=== PATIENT | female | born 1960 | race Caucasian/White ===

== ENCOUNTER → 2016-07-18 | Outpatient (CLI) | payer MEDICARE, OTHER ==
[~2016-07-18] MED LIST: CYMB60CA3 PO; IBUP100SUS PO; LYRI150C PO; PROAAER INH; SIMV20TA2 PO; TOPA100T PO; VICO5TAB16 PO; oxybutynin OR
[2016-07-18 10:20] LABS: ALBUMIN 3.7 GM/DL (3.2-5.2); ALBUMIN/GLOBULIN RATIO 1.37 (1.00-1.93); ALKALINE PHOSPHATASE 110 U/L (45-117); ALT/SGPT 30 U/L (12-78); ANION GAP 9 MEQ/L (8-16); AST/SGOT 16 U/L (15-37); BILIRUBIN,TOTAL 0.3 MG/DL (0.2-1.0); BLOOD UREA NITROGEN 18 MG/DL (7-18); CARBON DIOXIDE LEVEL 27 MEQ/L (21-32); CHLORIDE LEVEL 109 MEQ/L (98-107); CHOLESTEROL LEVEL 233 MG/DL (<200); CREATININE FOR GFR 0.64 MG/DL (0.55-1.02); GLOMERULAR FILTRATION RATE > 60.0 (>51); GLUCOSE, FASTING 86 MG/DL (70-105); MAGNESIUM LEVEL 2.1 MG/DL (1.8-2.4); POTASSIUM SERUM 4.4 MEQ/L (3.5-5.1); SODIUM LEVEL 145 MEQ/L (136-145); TOTAL PROTEIN 6.4 GM/DL (6.4-8.2); TRIGLYCERIDES LEVEL 150 MG/DL (<150)
== END ==
LOC: M WUC 08:29
PROVIDERS: ATTEND Physician Assistant
DX: Z98.84 Bariatric surgery status (principal); E66.8 Other obesity; Z13.220 Encounter for screening for lipoid disorders; E07.9 Disorder of thyroid, unspecified; E55.9 Vitamin D deficiency, unspecified; Z79.899 Other long term (current) drug therapy

== ENCOUNTER 2016-10-16 07:01 | Emergency (ER) | payer MEDICARE, OTHER ==
[~2016-10-16] VITALS: Ht 162.6 cm; Wt 118.4 kg
[2016-10-16] MEDS ORDERED: NS 1,000 ML IV SCH (07:14)
[2016-10-16] MEDS ORDERED: PANTOPRAZOLE 40MG INJ (PROTONIX) (C9113) IV ONE (07:15)
[2016-10-16] MEDS ORDERED: ASPIRIN 81 MG CHEW TABLET PO ONE (07:15)
[2016-10-16] MEDS ORDERED: SUCRALFATE 1 GM TAB PO ONE (07:15)
[2016-10-16] MEDS ORDERED: BUSP30TA (07:21)
[2016-10-16] MEDS ORDERED: OXYB10TA (07:21)
[2016-10-16] MEDS ORDERED: DULO1CAP3 (07:21)
[2016-10-16] MEDS ORDERED: LYRI75CA (07:21)
[2016-10-16] MEDS ORDERED: TOPI1TAB31 (07:21)
[2016-10-16] MEDS ORDERED: BUSP15TA47 (07:21)
[2016-10-16] MEDS ORDERED: BUPR300T34 (07:21)
[2016-10-16 07:51] LABS: BASO % 0.6 % (0.0-1.0); EOS # 0.1 K/mm3 (0.0-0.50); EOS % 1.6 % (0.0-3.0); LARGE UNSTAINED CELL # 0.1 K/mm3 (0.0-0.4); LYMPH # 2.4 K/mm3 (1.5-4.5); LYMPH % 40.7 % (24.0-44.0); MEAN CORPUSCULAR HEMOGLOBIN 29.2 pg (27.0-33.0); MEAN CORPUSCULAR HGB CONC 33.5 g/dl (32.0-36.5); MONO # 0.5 K/mm3 (0.0-0.8); MONO % 7.7 % (0.0-5.0); NEUTROPHILS # 2.8 K/mm3 (1.8-7.7); NEUTROPHILS % 47.5 % (36.0-66.0); PLATELET COUNT, AUTOMATED 194 k/mm3 (150-450); WHITE BLOOD COUNT 5.8 K/mm3 (4.0-10.0)
[2016-10-16 08:17] LABS: ALBUMIN 3.5 GM/DL (3.2-5.2); ALBUMIN/GLOBULIN RATIO 1.06 (1.00-1.93); ALKALINE PHOSPHATASE 96 U/L (45-117); ALT/SGPT 30 U/L (12-78); ANION GAP 6 MEQ/L (8-16); AST/SGOT 20 U/L (15-37); BILIRUBIN,DIRECT < 0.1 MG/DL (0.0-0.2); BILIRUBIN,TOTAL 0.4 MG/DL (0.2-1.0); BLOOD UREA NITROGEN 17 MG/DL (7-18); CALCIUM LEVEL 8.8 MG/DL (8.5-10.1); CARBON DIOXIDE LEVEL 25 MEQ/L (21-32); CHLORIDE LEVEL 109 MEQ/L (98-107); CREATININE FOR GFR 0.58 MG/DL (0.55-1.02); GLOMERULAR FILTRATION RATE > 60.0 (>51); GLUCOSE, FASTING 92 MG/DL (70-105); POTASSIUM SERUM 3.9 MEQ/L (3.5-5.1); SODIUM LEVEL 140 MEQ/L (136-145); TOTAL PROTEIN 6.8 GM/DL (6.4-8.2)
[2016-10-16] MEDS ORDERED: GI COCKTAIL 50ML BTL(HYOSCYAMINE/MAALOX/LIDOCAINE VISCOUS)(1:3:1) PO ONE (08:30)
--- NOTE | 2016-10-16 08:38 | REP ---
Clinical: Abdominal pain and vomiting. Technique: Upright view of the chest with supine and upright views of the abdomen and pelvis. Findings: Upright view of the chest demonstrates chronic appearing changes without free air below the diaphragm to suspect pneumoperitoneum. Supine and upright views of the abdomen and pelvis demonstrate mildly prominent loops of small bowel with suspected subtle mural thickening suggesting enteritis. No evidence for obstruction or perforation. Evidence to suggest prior gastric bypass surgery. No organomegaly. Skeletal structures demonstrate age-related changes. Impression: Findings suggest enteritis. No evidence for bowel obstruction or perforation. Signed by Donovan Galaviz MD 10/16/2016 08:29 A
[2016-10-16] MEDS ORDERED: ISOVUE-370 76% 100ML VIAL (Q9967) As Ordered ONE (09:08)
--- NOTE | 2016-10-16 10:03 | REP ---
Clinical: Acute abdominal pain. Technique: Axial contrast enhanced images from the lung bases to the pubic symphysis using 100 ml Isovue 370 intravenous contrast material with coronal and sagittal re-formations. Findings: Lung bases are clear. Visualized heart and pericardium are normal. Liver, spleen, pancreas, gallbladder, bilateral adrenal glands and kidneys are essentially normal. A small focus of cortical scarring along the posterior aspect of the left kidney appears chronic. There is evidence for prior gastric bypass surgery. The enteric system is without obstruction or acute inflammatory process. Pelvis demonstrates normal bladder and evidence of prior hysterectomy. No ascites. No free air. No adenopathy. No mass lesion. Vasculature is normal. Musculoskeletal structures are intact. Impression: No acute intra-abdominal or pelvic pathology appreciated. Signed by Donovan Galaviz MD 10/16/2016 09:55 A
--- NOTE | 2016-10-16 10:05 | REP ---
Clinical: Acute chest pain. Technique: Axial contrast enhanced images from the thoracic inlet to the upper abdomen using 100 ml Isovue 370 intravenous contrast material with coronal and sagittal re-formations. Findings: Satisfactory enhancement of the pulmonary vasculature is achieved and no filling defects are identified to suggest pulmonary embolus. Thoracic aorta is normal caliber without aneurysm or dissection. Heart appears upper limits of normal in size. No pericardial effusion. Bilateral lung amezcua are well aerated and clear without acute pulmonary parenchymal consolidation or atelectasis. No nodule or mass lesion. No pleural effusion/reaction. No pneumothorax. No adenopathy. Impression: No evidence for pulmonary embolus. No acute pleuroparenchymal or mediastinal process. Signed by Donovan Galaviz MD 10/16/2016 09:57 A
[2016-10-16] MEDS ORDERED: SUCRALFATE SUSP 1GM/10ML UD PO ONE (11:45)
[2016-10-16] MEDS ORDERED: PEPC1TAB4 PO (12:25)
[2016-10-16] MEDS ORDERED: SUCR1SS PO (12:26)
[2016-10-16 12:35] VITALS: BP 106/57
--- NOTE | 2016-10-16 14:43 | ECGEPIP ---
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
== END 2016-10-16 12:47 | disposition home or self-care (01) ==
LOC: M ED 07:56
DX: K52.9 Noninfective gastroenteritis and colitis, unspecified (principal); Z98.84 Bariatric surgery status; J30.2 Other seasonal allergic rhinitis; Z90.79 Acquired absence of other genital organ(s); Z90.89 Acquired absence of other organs; Z87.891 Personal history of nicotine dependence; Z82.49 Family history of ischemic heart disease and other diseases of the circulatory system; Z88.0 Allergy status to penicillin; Z79.899 Other long term (current) drug therapy
CPT/HCPCS: 36415; 71275; 74022; 74177; 80048; 80076; 82550; 82553; 83690; 83880; 84443; 84484; 85025; 93005; 93041; 94760; 96374; 99285; C9113; Q9967

== ENCOUNTER → 2016-12-12 | Outpatient (CLI) | payer MEDICARE, OTHER ==
[~2016-12-12] MED LIST changes: +ALBU17IN; +BUPR300T34; +BUSP15TA47; +BUSP30TA; +DULO1CAP3; +HYDR-3363; +LYRI75CA; +OXYB10TA; +PEPC1TAB4 PO; +SUCR1SS PO; +TOPI100T9; +VITA1CAP40
[2016-12-12 13:51] LABS: ANION GAP 6 MEQ/L (8-16); BLOOD UREA NITROGEN 17 MG/DL (7-18); CALCIUM LEVEL 9.2 MG/DL (8.5-10.1); CARBON DIOXIDE LEVEL 26 MEQ/L (21-32); CHLORIDE LEVEL 109 MEQ/L (98-107); CREATININE FOR GFR 0.51 MG/DL (0.55-1.02); GLOMERULAR FILTRATION RATE > 60.0 (>51); GLUCOSE, FASTING 89 MG/DL (70-105); POTASSIUM SERUM 4.8 MEQ/L (3.5-5.1); SODIUM LEVEL 141 MEQ/L (136-145)
== END ==
LOC: M WUC 10:43
DX: L29.9 Pruritus, unspecified (principal); M79.7 Fibromyalgia; I11.9 Hypertensive heart disease without heart failure

== ENCOUNTER → 2016-12-12 | Outpatient (CLI) | payer MEDICARE, OTHER | LOC: M WUC 10:48 | PROVIDERS: ATTEND Physician Assistant | DX: E55.9 Vitamin D deficiency, unspecified (principal); L29.9 Pruritus, unspecified; M79.7 Fibromyalgia; I11.9 Hypertensive heart disease without heart failure ==

== ENCOUNTER 2017-02-27 12:57 | Emergency (ER) | payer MEDICARE, OTHER ==
[~2017-02-27] VITALS: Ht 162.6 cm; Wt 120.9 kg
[~2017-02-27 12:57] MED LIST changes: -ALBU17IN; -HYDR-3363; -VITA1CAP40
[2017-02-27] MEDS ORDERED: ALBU17IN (13:25)
[2017-02-27] MEDS ORDERED: HYDR-3363 (13:25)
[2017-02-27] MEDS ORDERED: VITA1CAP40 (13:25)
[2017-02-27] MEDS ORDERED: ONDANSETRON 4 MG ORAL DISINTEGRATING TAB (S0181) PO ONE (16:15)
[2017-02-27] MEDS ORDERED: NORCO, ANEXSIA 5/325MG TABLET (HYDROcodone/ACETAMINOPHEN) PO ONE (16:15)
--- NOTE | 2017-02-27 16:41 | REP ---
CT Head without contrast HISTORY: Trauma COMPARISON: None There is no intraparenchymal hemorrhage, acute infarct, mass or midline shift. The ventricular system is normal in appearance. There is no extra cerebral collection. There is no fracture. The visualized sinuses are clear. IMPRESSION: There is no intracranial lesion. Signed by Titus Mendez MD 02/27/2017 04:32 P
--- NOTE | 2017-02-27 17:14 | REP ---
CT ORBITS WITHOUT CONTRAST: HISTORY: Trauma. The globes, optic nerves and rectus muscles are normal in appearance. There is no orbital lesion. The visualized sinuses are clear. There is no fracture. IMPRESSION: There is no orbital lesion. Signed by Titus Mendez MD 02/28/2017 08:29 A
[2017-02-27 17:17] VITALS: BP 137/96
== END 2017-02-27 17:25 | disposition home or self-care (01) ==
LOC: M ED 12:57
DX: S00.81XA Abrasion of other part of head, initial encounter (principal); S80.212A Abrasion, left knee, initial encounter; S40.021A Contusion of right upper arm, initial encounter; S80.12XA Contusion of left lower leg, initial encounter; W19.XXXA Unspecified fall, initial encounter; Y92.410 Unspecified street and highway as the place of occurrence of the external cause; Y93.89 Activity, other specified; Y99.8 Other external cause status; J45.909 Unspecified asthma, uncomplicated; F43.10 Post-traumatic stress disorder, unspecified

== ENCOUNTER → 2017-03-01 | Outpatient (CLI) | payer MEDICARE, OTHER ==
[~2017-03-01] MED LIST changes: +ALBU17IN; +HYDR-3363; +VITA1CAP40
--- NOTE | 2017-03-20 01:02 | ECWPNPC ---
PATIENT NAME: LOY QUINN : 1960 GENDER: FEMALE VISIT DATE: 03/01/2017 DISCHARGE DATE: 03/01/17 1128 VISIT LOCKED DATE TIME: PHYSICIAN: CLEOPATRA COPELAND PHYSICIAN PAGER NO: [phone] RESOURCE: CLEOPATRA COPELAND REASON FOR APPOINTMENT 1. FIBRO AND CHRONIC PAIN HISTORY OF PRESENT ILLNESS HISTORY OF PRESENT ILLNESS: 56 Y/O FEMALE REFERRED BY DAWN PATEL FOR CHRONIC LOW BACK PAIN AND LEFT LEG PAIN.ALSO SUFFERS FROM FIBROMYALGIA.PAIN BEGAN IN 2003 AFTER SHE HAD LEFT KNEE CAP REMOVED.WAS IN A BRACE OVER LEFT LEG FOR SEVERAL MONTHS.SHE HAS HAD FIBROMYALGIA FOR YEARS AND THIS PAIN SEEMS TO BE GETTING WORSE.RATING PAIN VAS 8/10.PAIN IS DESCRIBED CONSANT AND ACHING.HISTORY OF GASTRIC BYPASS IN 2013 WITH A WEIGHT LOSS OF 210 POUNDS SINCE SURGERY.DENIES RECENT FEVER OR ILLNESS.DENIES BOWEL OR BLADDER INCONTINENCE.CURRENTLY USING LYRICA AND CYMBALTA FOR CHRONIC PAIN. PAIN THE PATIENT DESCRIBES THE PAIN... FALL RISK SCREENING: SCREENING :NO FALLS IN THE PAST YEAR :NO FALLS IN THE PAST YEAR SCREENING :NO FALLS IN THE PAST YEAR :NO FALLS IN THE PAST YEAR NEW PATIENT CONSULT: WHEN DID YOUR PAIN FIRST START? . BRIEFLY DESCRIBE HOW YOUR PAIN STARTED? . HOW DOES YOUR PAIN CHANGE WITH TIME? . DOES YOUR PAIN AWAKEN YOU FROM SLEEP? . HOW MANY HOURS OF SLEEP DO YOU NORMALLY GET? . ANY DIAGNOSTIC TESTING? . FACILITY WHERE TESTS WERE DONE? ____. PAIN TREATMENT TREATMENT YES CANCER HAVE YOU EVER HAD ANY TYPE OF CANCER?NO NO. PAIN SCREENING: PATIENT HAS A COMPLAINT OF ACUTE OR CHRONIC PAIN :YES GARCES INVENTORY: QUESTIONNAIRE ASSESSEDYES SCORE VALUE CALCULATED YES SCORE:30 DENIES SUICIDAL IDEATIONS. CURRENT MEDICATIONS TAKING HYDROXYZINE HCL 25 MG TABLET 1 -2 TABLETS ORALLY EVERY 8 HRS NEEDED FOR ITCHING, MDD=6 TAKING CALCIUM CITRATE 1040 MG TABLET 1 TABLET ORALLY TWICE A DAY TAKING POTASSIUM 99 MG TABLET 1 TABLET ORALLY ONCE A DAY TAKING VITAMIN C 500 MG TABLET CHEWABLE 1 TABLET ORALLY ONCE A DAY TAKING BIOTIN 5 MG CAPSULE 2 TABLET ORALLY ONCE A DAY TAKING VITAMIN B12 1000 TABLET 1 TABLET ORALLY ONCE A DAY TAKING MULTIVITAL TABLET 2 TAB(S) ORALLY ONCE A DAY TAKING DRISDOL 67177 UNIT CAPSULE 1 CAPSULE ORALLY ONCE A WEEK TAKING CYMBALTA 60 MG CAPSULE DELAYED RELEASE PARTICLES 1 CAPSULE ORALLY ONCE A DAY TAKING VENTOLIN HFA 108 (90 BASE) MCG/ACT AEROSOL SOLUTION 2 PUFFS NEEDED INHALATION EVERY 4-6 HRS PRN SOB TAKING LYRICA 75 MG CAPSULE 1 CAPSULE ORALLY TWICE A DAY/MDD #2 TAKING TOPAMAX 100 MG TABLET 1 TABLET ORALLY ONCE A DAY TAKING OXYBUTYNIN CHLORIDE ER 10 MG TABLET EXTENDED RELEASE 24 HOUR 1 TABLET ORALLY ONCE A DAY TAKING MAGNESIUM OXIDE 400 MG TABLET 1 TABLET NEEDED ORALLY ONCE A DAY TAKING PROBIOTIC - CAPSULE 1 TAB ORALLY DAILY TAKING FERROUS GLUCONATE 324 (38 FE) MG TABLET 2 TABS ORALLY DAILY MEDICATION LIST REVIEWED AND RECONCILED WITH THE PATIENT PAST MEDICAL HISTORY DEPRESSION FIBROMYALGIA NERVE PAIN MIGRAINES HYPERLIPIDEMIA ASTHMA VINITA MORBID OBESITY ARTHRITIS KNEES, BACK COLLAGENOUS COLITIS ON BX 10/08 FAINTING SPELLS SINCE HEAD INJURY ON 02/27/17 CPAP BYPASS SURGERY 11/03/2013 ENLARGED THYROID ALLERGIES PENICILLIN (FOR ALLERGIES USE ONLY): HIVES: ALLERGY SURGICAL HISTORY LT KNEE CAP REMOVED 2002 RT OVARY REMOVED 1984 APPENDECTOMY 1984 1984 TONSEILLECTOMY AND ADNOIDS 1971 RHINOPLASTY 1989 D&C 09/2011, 12/2012 GASTRIC BYPASS 11/08 COLONOSCOPY--COLLAGENOUS COLITIS 10/08 HYSTERECTOMY 2012 FAMILY HISTORY FATHER: , LUNG CANCER, BLADDER CANCER, HTN, HYPERLIPIDEMIA, DIAGNOSED WITH CANCER MOTHER: , PULMONARY FIBROSIS SIBLINGS: ALIVE, COLON CARCINOMA SON(S): ALIVE, ASTHMA PATERNAL GRAND FATHER: , BLADDER CANCER, RENAL FAILURE PATERNAL GRAND MOTHER: , DIABETES, OLD AGE MATERNAL GRAND FATHER: , HEART ATTACK, STROKE MATERNAL GRAND MOTHER: , PNEUMONIA 1 BROTHER(S) - HEALTHY. 1 SON(S) - HEALTHY. SOCIAL HISTORY GENERAL: TOBACCO USE ARE YOU A:FORMER SMOKER HOW LONG HAS IT BEEN SINCE YOU LAST SMOKED?> 10 YEARS ALCOHOL SCREENING POINTS0 INTERPRETATIONNEGATIVE RECREATIONAL DRUG USE DRUG USE?NO EPISCOPALIAN [id number] MORAVIAN LANGUAGE LANGUAGES SPOKEN:PERUVIAN LEARNING BARRIERS / SPECIAL NEEDS BARRIERS TO LEARNING?NO HEARING IMPAIRED?NO VISION IMPAIRED?YES :CORRECTIVE LENSES COGNITIVELY IMPAIRED?NO READINESS TO LEARN?YES LEARNING PREFERENCES?NO LEARNING CAPABILITIES PRESENT?YES EMOTIONAL BARRIERS?NO SPECIAL DEVICES?YES :CANE FERRY CAPTAIN NEEDED?NO PAIN CLINIC PFS, CLERGY, PUBLIC HEALTH REFERRALS PFS REFERRAL NEEDED?NO CLERGY REFERRAL NEEDED?NO PUBLIC HEALTH REFERRAL NEEDED?NO WAS THE PROVIDER NOTIFIED OF ANY PERTINENT INFO?NO HAS THE PATIENT BEEN EDUCATED REGARDING HIS/HER PLAN OF CARE?YES HAS THE PATIENT BEEN EDUCATED REGARDING PAIN, THE RISK FOR PAIN, THE IMPORTANCE OF EFFECTIVE PAIN MANAGEMENT, AND THE PAIN ASSESSMENT PROCESS?YES PATIENT: ____. ADVANCE DIRECTIVES HEALTH CARE PROXY?NO WOULD YOU LIKE MORE INFORMATION?YES DISCUSSED WITH PATIENT AND GAVE INFORMATION TO HER DO YOU HAVE A DNR?NO WOULD YOU LIKE MORE INFORMATION?NO LIVING WILL?NO WOULD YOU LIKE MORE INFORMATION?NO POWER OF OUTSIDE PRODUCTION INSPECTOR?NO WOULD YOU LIKE MORE INFORMATION?NO HOSPITALIZATION/MAJOR DIAGNOSTIC PROCEDURE ABOVE REVIEW OF SYSTEMS REVIEWED BY: PROVIDER: , CLEOPATRA PATEL . CONSTITUTIONAL: ANY CHANGE IN YOUR MEDICAL CONDITION? NO . CHILLS NO . FEVER NO . INFECTION: DO YOU HAVE NEW INFECTIONS? NO . DO YOU HAVE HISTORY OF MRSA? NO . MUSCULOSKELETAL: ANY NEW PATTERNS OF PAIN OR NUMBNESS? NO . SYTEMIC LUPUS NO . GASTROENTEROLOGY: ANY NEW CHANGE IN BOWEL CONTROL? NO . BARRETTS ESOPHAGUS NO . CIRRHOSIS NO . HEPATITIS NO . LIVER FAILURE NO . ACID REFLUX NO . UNEXPLAINED WEIGHT LOSS NO . GENITOURINARY: ANY NEW CHANGE IN BLADDER CONTROL? NO . IS THERE A CHANCE YOU COULD BE ? NO . HEMATOLOGY/LYMPH: DO YOU TAKE ANY BLOOD THINNERS? (FOR EXAMPLE- COUMADIN, PLAVIX, AGGRENOX, PLATEL, PRADAXA, OR XARELTO) NO . WHEN WAS YOUR LAST DOSE? DATE: TIME: . LOW PLATELET COUNT NO . SICKLE CELL DISEASE NO . VON WILLIEBRANDS NO . FACTOR V LEIDEN NO . THALLASEMIA NO . ANEMIA NO . EASY BRUISING NO . NEUROLOGY: HAVE YOU FALLEN IN THE PAST 6 MONTHS? YES, FELL Sunday02/27/17 AFTER MISSING A STEP AND LANDED FACE DOWN. HIT LEFT KNEE AND RIGHT ARM. WAS SEEN IN THE ER AND CT SCAN OF HEAD DONE AND WAS TOLD ALL WAS GOOD. . ANY NEW EXTREMITY NUMBNESS OR WEAKNESS? NO . HEAD INJURY NO . DEMENTIA NO . CEREBRAL PALSY NO . MULTIPLE SCLEROSIS NO . DIZZINESS YES SINCE FALLING . HEADACHE NO . STROKES NO . VERTIGO NO . CARDIOLOGY: DO YOU HAVE A PACEMAKER OR DEFIBRILLATOR? NO . ANGINA NO . HEART ATTACK NO . HEART SURGERY NO . CONGESTIVE HEART FAILURE/FLUID OVERLOAD NO . CHEST PAIN NO . HIGH BLOOD PRESSURE NO . IRREGULAR HEART BEAT NO . RESPIRATORY: HAVE YOU BEEN SICK IN THE PAST WEEK? NO . FEVER NO . FLU LIKE SYMPTOMS? NO . CPAP YES . BYPAP NO . ASTHMA YES . EMPHYSEMA NO . CHRONIC LUNG DISEASES NO . SHORTNESS OF BREATH ON EXERTION YES . DO YOU USE ANY TYPE OF TOBACCO (SMOKE, SMOKELESS, CHEW)? NO . COUGH NO . SNORING NO . INTEGUMENTARY: DO YOU HAVE ANY RASHES OR OPEN SORES? NO . ALLERGIC/IMMUNO: ARE YOU ALLERGIC TO SHELLFISH OR IV DYE? NO . ANY NEW ALLERGIES? NO . PSYCHIATRIC: DO YOU HAVE THOUGHTS OF HURTING YOURSELF OR SOMEONE ELSE? NO . ARE YOU ABUSED, NEGLECTED, OR IN AN UNSAFE ENVIRONMENT? NO . ENDOCRINOLOGY: ARE YOU DIABETIC? NO . THYROID DISORDER YES, HAS ENLARGED THYROID . OTHER: DO YOU NEED ANY PRESCRIPTIONS? NO . IF YES, PLEASE LIST: ____, ____ . ANY NEW PROBLEMS WITH YOUR MEDICATIONS? NO . WHEN DID YOU LAST EAT? ____, ____ . WHEN DID YOU LAST DRINK? ____, ____ . WHAT DID YOU LAST DRINK? ____, ____ . NAME OF PERSON DRIVING YOU HOME? ____, ____ . DO YOU HAVE ANY OTHER QUESTIONS OR CONCERNS NO . VITAL SIGNS WT 266 LBS, HT 63 IN, BMI 47.11 INDEX, BP 132/61 MM HG, HR 85 /MIN, RR 18 /MIN, TEMP 97.8 F, OXYGEN SAT % 96%, SAFE IN ENV? (Y/N) YES, NA INITIALS AW 1026, REVIEWED BY: AUNG. EXAMINATION GENERAL EXAMINATION: GENERAL APPEARANCE:AWAKE,ALERT. PSYCHAFFECT NORMAL. NECK:TRACHEA MIDLINE. NO CERVICAL OR SUPRACLAVICULAR LYMPHADENOPATHY NOTED. LUNGS:LUNG SMITH ARE CLEAR TO AUSCULTATION BILATERALLY. GOOD MOVEMENT OF AIR. HEART:S1, S2 IN A REGULAR RATE AND RHYTHM. NO SIGNIFICANT MURMURS, RUBS OR GALLOPS NOTED. BACK:POINT TENDERNESS BILAT SIJ. ABDOMEN:NO MASSES PALPATED. MUSCULOSKELETAL:MUSCLE STRENGTH TESTING 5/5 BILATERAL LOWER EXTREMITIES. NEUROLOGIC EXAM:DTRS 1-2+ IN ALL 4 EXTREMITIES. ASSESSMENTS SACROILIAC JOINT PAIN - M53.3 (PRIMARY) FIBROMYALGIA - M79.7 TREATMENT SACROILIAC JOINT PAIN [facility], L.S. WITHOUT [id number] PROCEDURE CODES FA211 ESTABILISHED PATIENT [facility] FACILITY CHARGE G9330 PAIN ASSESS POS TOOL F/U PLAN DOC G8427 DOC MEDS VERIFIED W/PT OR RE DISPOSITION & COMMUNICATION FOLLOW UP 4 WEEKS ELECTRONICALLY SIGNED BY AMANDA JOHNSON ON 03/19/2017 AT 08:54 PM EDT DISCLAIMER : THIS IS A VISIT SUMMARY EXTRACTED FROM THE [facility] CHART. IT IS NOT A COPY OF THE [facility] PROGRESS NOTE. MTDD
== END ==
LOC: M PAIN 10:15
PROVIDERS: ATTEND Nurse Practitioner Family
DX: G89.29 Other chronic pain (principal); M53.3 Sacrococcygeal disorders, not elsewhere classified; M79.7 Fibromyalgia; F32.9 Major depressive disorder, single episode, unspecified; G43.909 Migraine, unspecified, not intractable, without status migrainosus; E78.5 Hyperlipidemia, unspecified; J45.909 Unspecified asthma, uncomplicated; G47.30 Sleep apnea, unspecified; E66.01 Morbid (severe) obesity due to excess calories; E55.9 Vitamin D deficiency, unspecified; F41.9 Anxiety disorder, unspecified; E07.9 Disorder of thyroid, unspecified; Z88.0 Allergy status to penicillin; Z79.899 Other long term (current) drug therapy; Z87.891 Personal history of nicotine dependence

== ENCOUNTER → 2017-03-12 | Outpatient (CLI) | payer MEDICARE, OTHER ==
--- NOTE | 2017-03-12 12:14 | REP ---
MRI LUMBAR SPINE WITHOUT CONTRAST: HISTORY: Back pain. A diffuse disc bulge is present at the L1-2 level. This abuts the thecal sac. There is hypertrophy of the posterior articulating facets. The L1 nerves exit the neural foramina without compression. A diffuse disc bulge is present at the L2-3 level. This abuts the thecal sac. There is hypertrophy of the posterior articulating facets. The L2 nerves exit the neural foramina without compression. A diffuse disc bulge is present at the L3-4 level. There is minimal compression of the thecal sac. There is hypertrophy of the posterior articulating facets. The L3 nerves exit the neural foramina without compression. A diffuse disc bulge is present at the L4-5 level. This abuts the thecal sac. There is hypertrophy of the posterior articulating facets. The L4 nerves exit the neural foramina without compression. A diffuse disc bulge is present at the L5-S1 level. There is no thecal sac or nerve compression. There is hypertrophy of the posterior articulating facets. The L5 nerves exit the neural foramina without compression. The conus medullaris is normal in appearance terminating at the level of the L1-2 intervertebral disc. The L3-4 and L4-5 intervertebral discs are decreased in height consistent with disc degeneration. Normal signal intensity is present in the lumbar intervertebral discs and vertebral bodies. IMPRESSION: 1. Diffuse disc bulges at the L1-2, L2-3 and L4-5 levels. The disc bulges abut the thecal sac. 2. Diffuse disc bulge at the L3-4 level with minimal thecal sac compression. 3. Diffuse disc bulge at the L5-S1 level without thecal sac or nerve compression. Signed by Titus Mendez MD 03/12/2017 12:16 P
== END ==
LOC: M PLARAD 10:24
PROVIDERS: ATTEND Nurse Practitioner Family
DX: M53.3 Sacrococcygeal disorders, not elsewhere classified (principal)

== ENCOUNTER → 2017-03-29 | Outpatient (CLI) | payer MEDICARE, OTHER | LOC: M PAIN 10:30 | PROVIDERS: ATTEND Nurse Practitioner Family | DX: G89.29 Other chronic pain (principal); M53.3 Sacrococcygeal disorders, not elsewhere classified; M79.7 Fibromyalgia; M43.07 Spondylolysis, lumbosacral region; E55.9 Vitamin D deficiency, unspecified; F32.9 Major depressive disorder, single episode, unspecified; F41.9 Anxiety disorder, unspecified; G43.909 Migraine, unspecified, not intractable, without status migrainosus; G47.30 Sleep apnea, unspecified; Z88.0 Allergy status to penicillin; Z79.899 Other long term (current) drug therapy; Z87.891 Personal history of nicotine dependence ==

== ENCOUNTER → 2017-04-12 | Outpatient (CLI) | payer MEDICARE, OTHER ==
[~2017-04-12] MED LIST changes: +BUPIVACAINE HCL 0.25% 30 ML VIAL As Ordered ONE; +ISOVUE-M 300 61% 15ML VIAL (Q9967) As Ordered ONE; +LIDOCAINE 1% SDV INJ 30 ML VIAL As Ordered ONE; +TRIAMCINOLONE ACETONIDE SUSP 40 MG/ML VIAL (J3301) As Ordered ONE; +diazePAM 5 MG TAB As Ordered ONE; +oxyCODONE 5MG TAB As Ordered ONE
--- NOTE | 2017-04-12 16:02 | REP ---
FLUOROSCOPIC GUIDANCE: The images were reviewed with Dr. Riojas. The patient has a history of back pain. The portable C-arm was provided in the OR for Dr. Altamirano for fluoroscopic guidance. Seven intraoperative fluoroscopic spot last image hold films were obtained for needle placement verification for bilateral SI joint injection. The films are on the PACs system and are available for review. 43 seconds of fluoroscopic time was utilized for this procedure. Reviewed by RUFUS Golden 04/13/2017 03:42 PEdited and Signed by Maurice Riojas MD 04/13/2017 03:44 P
--- NOTE | 2017-04-24 01:47 | ECWPNPC ---
PATIENT NAME: LOY QUINN : 1960 GENDER: FEMALE VISIT DATE: 04/12/2017 DISCHARGE DATE: 04/12/17 1040 VISIT LOCKED DATE TIME: PHYSICIAN: MAI SMILEY PHYSICIAN PAGER NO: [phone] RESOURCE: MAI SMILEY REASON FOR APPOINTMENT 1. BILAT. SIJ HISTORY OF PRESENT ILLNESS HISTORY OF PRESENT ILLNESS: PAIN THE PATIENT DESCRIBES THE PAIN... FALL RISK SCREENING: SCREENING :NO FALLS IN THE PAST YEAR CURRENT MEDICATIONS TAKING HYDROXYZINE HCL 25 MG TABLET 1 -2 TABLETS ORALLY EVERY 8 HRS NEEDED FOR ITCHING, MDD=6, NOTES: 04/11 2100 TAKING CALCIUM CITRATE 1040 MG TABLET 1 TABLET ORALLY TWICE A DAY, NOTES: 04/11 1300 TAKING POTASSIUM 99 MG TABLET 1 TABLET ORALLY ONCE A DAY, NOTES: 04/11 2100 TAKING VITAMIN C 500 MG TABLET CHEWABLE 1 TABLET ORALLY ONCE A DAY, NOTES: 04/12 900 TAKING BIOTIN 5 MG CAPSULE 2 TABLET ORALLY ONCE A DAY, NOTES: 04/11 2100 TAKING VITAMIN B12 1000 TABLET 1 TABLET ORALLY ONCE A DAY, NOTES: 04/11 900 TAKING MULTIVITAL TABLET 2 TAB(S) ORALLY ONCE A DAY, NOTES: 04/11 900 TAKING CYMBALTA 60 MG CAPSULE DELAYED RELEASE PARTICLES 1 CAPSULE ORALLY ONCE A DAY, NOTES: 04/11 2100 TAKING VENTOLIN HFA 108 (90 BASE) MCG/ACT AEROSOL SOLUTION 2 PUFFS NEEDED INHALATION EVERY 4-6 HRS PRN SOB, NOTES: 04/07 TAKING LYRICA 75 MG CAPSULE 1 CAPSULE ORALLY TWICE A DAY/MDD #2, NOTES: 04/11 2100 TAKING TOPAMAX 100 MG TABLET 1 TABLET ORALLY ONCE A DAY, NOTES: 04/11 2100 TAKING OXYBUTYNIN CHLORIDE ER 10 MG TABLET EXTENDED RELEASE 24 HOUR 1 TABLET ORALLY ONCE A DAY, NOTES: 04/11 2100 TAKING MAGNESIUM OXIDE 400 MG TABLET 1 TABLET NEEDED ORALLY ONCE A DAY, NOTES: 04/11 2100 TAKING PROBIOTIC - CAPSULE 1 TAB ORALLY DAILY, NOTES: 04/11 2100 TAKING FERROUS GLUCONATE 324 (38 FE) MG TABLET 2 TABS ORALLY DAILY, NOTES: 04/11 2100 TAKING DRISDOL 26290 UNIT CAPSULE 1 CAPSULE ORALLY ONCE A WEEK, NOTES: 04/08 MEDICATION LIST REVIEWED AND RECONCILED WITH THE PATIENT PAST MEDICAL HISTORY DEPRESSION FIBROMYALGIA NERVE PAIN MIGRAINES HYPERLIPIDEMIA ASTHMA VINITA MORBID OBESITY ARTHRITIS KNEES, BACK COLLAGENOUS COLITIS ON BX 10/08 FAINTING SPELLS SINCE HEAD INJURY ON 02/27/17 CPAP BYPASS SURGERY 11/03/2013 ENLARGED THYROID ALLERGIES PENICILLIN (FOR ALLERGIES USE ONLY): HIVES: ALLERGY SOCIAL HISTORY GENERAL: TOBACCO USE ARE YOU A:FORMER SMOKER HOW LONG HAS IT BEEN SINCE YOU LAST SMOKED?> 10 YEARS ALCOHOL SCREENING DID YOU HAVE A DRINK CONTAINING ALCOHOL IN THE PAST YEAR?NO POINTS0 INTERPRETATIONNEGATIVE RECREATIONAL DRUG USE DRUG USE?NO UATSDIN [id number] BAHAI LANGUAGE LANGUAGES SPOKEN:CITIZEN OF [place] LEARNING BARRIERS / SPECIAL NEEDS BARRIERS TO LEARNING?NO HEARING IMPAIRED?NO VISION IMPAIRED?YES :CORRECTIVE LENSES COGNITIVELY IMPAIRED?NO READINESS TO LEARN?YES LEARNING PREFERENCES?NO LEARNING CAPABILITIES PRESENT?YES EMOTIONAL BARRIERS?NO SPECIAL DEVICES?YES :CANE ASBESTOS SURVEYOR NEEDED?NO PAIN CLINIC PFS, CLERGY, PUBLIC HEALTH REFERRALS PFS REFERRAL NEEDED?NO CLERGY REFERRAL NEEDED?NO PUBLIC HEALTH REFERRAL NEEDED?NO WAS THE PROVIDER NOTIFIED OF ANY PERTINENT INFO?NO HAS THE PATIENT BEEN EDUCATED REGARDING HIS/HER PLAN OF CARE?YES HAS THE PATIENT BEEN EDUCATED REGARDING PAIN, THE RISK FOR PAIN, THE IMPORTANCE OF EFFECTIVE PAIN MANAGEMENT, AND THE PAIN ASSESSMENT PROCESS?YES PATIENT: 04/12/17 0934 AD. ADVANCE DIRECTIVES HEALTH CARE PROXY?NO WOULD YOU LIKE MORE INFORMATION?YES DISCUSSED WITH PATIENT AND GAVE INFORMATION TO HER 04/12 STATES SHE HAS AND SHE WILL BRING WITH HER ON HER NEXT VISIT DO YOU HAVE A DNR?NO WOULD YOU LIKE MORE INFORMATION?NO LIVING WILL?NO WOULD YOU LIKE MORE INFORMATION?NO POWER OF CARBON FURNACE OPERATOR?NO WOULD YOU LIKE MORE INFORMATION?NO NO COHABITATING. DOMESTIC VIOLENCE DO YOU FEEL SAFE IN YOUR ENVIRONMENT?YES REVIEW OF SYSTEMS REVIEWED BY: PROVIDER: . CONSTITUTIONAL: ANY CHANGE IN YOUR MEDICAL CONDITION? NO . CHILLS NO . FEVER NO . INFECTION: DO YOU HAVE NEW INFECTIONS? NO . DO YOU HAVE HISTORY OF MRSA? NO . MUSCULOSKELETAL: ANY NEW PATTERNS OF PAIN OR NUMBNESS? NO . GASTROENTEROLOGY: ANY NEW CHANGE IN BOWEL CONTROL? NO . GENITOURINARY: ANY NEW CHANGE IN BLADDER CONTROL? NO . IS THERE A CHANCE YOU COULD BE ? NO . HEMATOLOGY/LYMPH: DO YOU TAKE ANY BLOOD THINNERS? (FOR EXAMPLE- COUMADIN, PLAVIX, AGGRENOX, PLATEL, PRADAXA, OR XARELTO) NO . WHEN WAS YOUR LAST DOSE? DATE: TIME: . NEUROLOGY: HAVE YOU FALLEN IN THE PAST 6 MONTHS? 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 ANY NEW EXTREMITY NUMBNESS OR WEAKNESS? NO . CARDIOLOGY: DO YOU HAVE A PACEMAKER OR DEFIBRILLATOR? NO . RESPIRATORY: HAVE YOU BEEN SICK IN THE PAST WEEK? NO . FEVER NO . FLU LIKE SYMPTOMS? NO . COUGH NO . INTEGUMENTARY: DO YOU HAVE ANY RASHES OR OPEN SORES? NO . ALLERGIC/IMMUNO: ARE YOU ALLERGIC TO SHELLFISH OR IV DYE? NO . ANY NEW ALLERGIES? NO . PSYCHIATRIC: DO YOU HAVE THOUGHTS OF HURTING YOURSELF OR SOMEONE ELSE? NO . ARE YOU ABUSED, NEGLECTED, OR IN AN UNSAFE ENVIRONMENT? NO . ENDOCRINOLOGY: ARE YOU DIABETIC? NO . OTHER: DO YOU NEED ANY PRESCRIPTIONS? NO . IF YES, PLEASE LIST: ____ . ANY NEW PROBLEMS WITH YOUR MEDICATIONS? NO . WHEN DID YOU LAST EAT? 04/11 1900 . WHEN DID YOU LAST DRINK? 04/11 2100 . WHAT DID YOU LAST DRINK? WATER . NAME OF PERSON DRIVING YOU HOME? , CORBIN . DO YOU HAVE ANY OTHER QUESTIONS OR CONCERNS NO NO VACCINES THE PAST 30 DAYS . VITAL SIGNS WT 269.0 LBS, HT 63 IN, BMI 47.65 INDEX, BP 154/81 MM HG, HR 64 /MIN, RR 16 /MIN, TEMP 98.5 F, OXYGEN SAT % 96%, SAFE IN ENV? (Y/N) Y, NA INITIALS TL 0912, REVIEWED BY: AD. ASSESSMENTS SACROILIITIS, NOT ELSEWHERE CLASSIFIED - M46.1 (PRIMARY) PROCEDURES PN SI PRE PROCEDURE DIAGNOSIS SACROILIITIS, SACROILIAC JOINT DYSFUNCTION POST PROCEDURE DIAGNOSIS SACROILIITIS, SACROILIAC JOINT DYSFUNCTION PROCEDURE BILATERAL SACROILIAC JOINT BLOCK SURGEON DR. MAI SMILEY MEDICAL APPARATUS MODEL MAKER NONE ANESTHESIA LOCAL PRE PROCEDURE NOTE PATIENT WITH HISTORY OF CHRONIC LOW BACK PAIN. I EVALUATED THE PATIENT AND REVIEWED THE CHART. I WENT OVER THE RISKS, ALTERNATIVES, AND BENEFITS ASSOCIATED WITH THIS PROCEDURE. THE PATIENT WOULD LIKE TO PROCEED AND GAVE CONSENT TO PERFORM THE PROCEDURE. THE PATIENT DENIES UNEXPLAINABLE WEIGHT LOSS, FEVER, CHILLS, OR NEW CHANGES IN URINARY OR BOWEL CONTROL DESCRIPTION OF PROCEDURE THE PATIENT WAS BROUGHT TO THE PROCEDURE ROOM AND PLACED IN THE PRONE POSITION. THE LUMBOSACRAL AREA WAS CLEANED WITH CHLORAPREP SOLUTION AND DRAPED ASEPTICALLY. THE PROCEDURE WAS DONE UNDER STERILE CONDITIONS. I CHECKED LATERALITY AND THE LEVEL WHERE THE PROCEDURE WAS GOING TO BE PERFORMED WITH THE PATIENT AND THE SUPPORTING STAFF AT THE MOMENT OF THE TIME OUT IN THE PROCEDURE ROOM. UNDER FLUOROSCOPIC GUIDANCE, TARGET POINT WAS SELECTED AT THE LOWER BORDER OF THE RIGHT AND LEFT SACROILIAC JOINT. TARGET POINT WAS SELECTED AFTER MEDIAL ROTATION AND TILT OF THE MAGNIFIER OF THE C-ARM. LIDOCAINE WAS USED TO NUMB THE SKIN AND SUBCUTANEOUS TISSUE BELOW IT. A SPINAL NEEDLE, 22-GAUGE, WAS ADVANCED UNDER FLUOROSCOPIC GUIDANCE AND FOLLOWING PATIENT FEEDBACK UNTIL THE TARGET AREA WAS TOUCHED. THE POSITION OF THE NEEDLE WAS VERIFIED WITH AP AND LATERAL VIEWS. AFTER PROPER POSITION OF THE NEEDLE WAS ACHIEVED, ISOVUE M DYE 30%, 0.25 ML, WAS INJECTED SHOWING SPREAD OF THE DYE. THEN, A SOLUTION OF 20 MG OF KENALOG WAS INJECTED IN RIGHT JOINT WITH 3 ML OF BUPIVACAINE 0.125%. THERE WAS NO EVIDENCE OF BLOOD, PARESTHESIA OR CEREBROSPINAL FLUID DURING THE PROCEDURE. THE PATIENT WAS SENT TO THE RECOVERY ROOM. THE PATIENT WAS MOVING THE EXTREMITIES AND DOING WELL. THERE WAS NO COMPLICATION DURING THE PROCEDURE. FLUOROSCOPY TIME WAS 47 SECONDS POST PROCEDURE NOTE THE PATIENT WILL BE SEEN IN A FOLLOW UP IN THE NEXT FEW WEEKS. INSTRUCTIONS WERE GIVEN, QUESTIONS WERE ANSWERED, AND THE PATIENT EXPRESSED UNDERSTANDING AND AGREED WITH THE PLAN. I, TL FRASER, DOCUMENTED THE ABOVE INFORMATION ACTING A SCRIBE FOR DR. SMILEY. I, DR. SMILEY, HAVE REVIEWED THE ABOVE DOCUMENT, SCRIBED BY TL FRASER, AND I VERIFY THAT IT IS [facility] FLUORO GUIDANCE (PAIN)[id number] PROCEDURE CODES 99872 INJECT SACROILIAC JOINT, MODIFIERS: 50 [id number] RADXPS IN END [id number] PXD DISPOSITION & COMMUNICATION FOLLOW UP 3 WEEKS ELECTRONICALLY SIGNED BY MAI SMILEY MD ON 04/23/2017 AT 02:31 PM EST DISCLAIMER : THIS IS A VISIT SUMMARY EXTRACTED FROM THE [facility] CHART. IT IS NOT A COPY OF THE [employer] PROGRESS NOTE. MTDD
== END ==
LOC: M PAIN 09:00
PROVIDERS: ATTEND Anesthesiology
DX: G89.29 Other chronic pain (principal); M46.1 Sacroiliitis, not elsewhere classified; M53.88 Other specified dorsopathies, sacral and sacrococcygeal region; E55.9 Vitamin D deficiency, unspecified; F32.9 Major depressive disorder, single episode, unspecified; F41.9 Anxiety disorder, unspecified; F07.81 Postconcussional syndrome; G47.33 Obstructive sleep apnea (adult) (pediatric); G43.909 Migraine, unspecified, not intractable, without status migrainosus; E78.5 Hyperlipidemia, unspecified; J45.909 Unspecified asthma, uncomplicated; M17.0 Bilateral primary osteoarthritis of knee; E66.01 Morbid (severe) obesity due to excess calories; Z68.42 Body mass index [BMI] 45.0-49.9, adult; Z88.0 Allergy status to penicillin; Z79.899 Other long term (current) drug therapy; Z87.891 Personal history of nicotine dependence
CPT/HCPCS: G0260; J3301; Q9967

== ENCOUNTER → 2017-04-26 | Outpatient (CLI) | payer MEDICARE, OTHER ==
[~2017-04-26] MED LIST changes: -BUPIVACAINE HCL 0.25% 30 ML VIAL As Ordered ONE; -ISOVUE-M 300 61% 15ML VIAL (Q9967) As Ordered ONE; -LIDOCAINE 1% SDV INJ 30 ML VIAL As Ordered ONE; -TRIAMCINOLONE ACETONIDE SUSP 40 MG/ML VIAL (J3301) As Ordered ONE; -diazePAM 5 MG TAB As Ordered ONE; -oxyCODONE 5MG TAB As Ordered ONE
--- NOTE | 2017-05-11 01:31 | ECWPNPC ---
PATIENT NAME: LOY QUINN : 1960 GENDER: FEMALE VISIT DATE: 04/26/2017 DISCHARGE DATE: 04/26/17 1117 VISIT LOCKED DATE TIME: PHYSICIAN: CLEOPATRA COPELAND PHYSICIAN PAGER NO: [phone] RESOURCE: CLEOPATRA COPELAND REASON FOR APPOINTMENT 1. POST PROCEDURE HISTORY OF PRESENT ILLNESS HISTORY OF PRESENT ILLNESS: HERE FOR F/U OF CHRONIC LOW BACK PAIN AND LEFT LEG PAIN.HAD BILATERAL SIJ ON 04-12-17.SITUATION IS COMPLICATED BY FALL INJURY ON .SHE IS FOLLOWING WITH NEUROLOGY DUE TO PROBLEMS WITH SPEECH AND WALKING AND MEMORY.SEVERAL IMAGING STUDIES ARE PENDING.RATING LOW BACK PAIN AND LEG PAIN 5/10 VAS.FEELS SHE IS DOING BETTER SINCE INJECTIONS. PAIN THE PATIENT DESCRIBES THE PAIN... THE PATIENT DESCRIBES THE PAIN... FALL RISK SCREENING: SCREENING :NO FALLS IN THE PAST YEAR CURRENT MEDICATIONS TAKING HYDROXYZINE HCL 25 MG TABLET 1 -2 TABLETS ORALLY EVERY 8 HRS NEEDED FOR ITCHING, MDD=6, NOTES: 04/11 2100 TAKING CALCIUM CITRATE 1040 MG TABLET 1 TABLET ORALLY TWICE A DAY, NOTES: 04/11 1300 TAKING POTASSIUM 99 MG TABLET 1 TABLET ORALLY ONCE A DAY, NOTES: 04/11 2100 TAKING VITAMIN C 500 MG TABLET CHEWABLE 1 TABLET ORALLY ONCE A DAY, NOTES: 04/12 900 TAKING BIOTIN 5 MG CAPSULE 2 TABLET ORALLY ONCE A DAY, NOTES: 04/11 2100 TAKING VITAMIN B12 1000 TABLET 1 TABLET ORALLY ONCE A DAY, NOTES: 04/11 900 TAKING MULTIVITAL TABLET 2 TAB(S) ORALLY ONCE A DAY, NOTES: 04/11 900 TAKING CYMBALTA 60 MG CAPSULE DELAYED RELEASE PARTICLES 1 CAPSULE ORALLY ONCE A DAY, NOTES: 04/11 2100 TAKING VENTOLIN HFA 108 (90 BASE) MCG/ACT AEROSOL SOLUTION 2 PUFFS NEEDED INHALATION EVERY 4-6 HRS PRN SOB, NOTES: 04/07 TAKING LYRICA 75 MG CAPSULE 1 CAPSULE ORALLY TWICE A DAY/MDD #2, NOTES: 04/11 2100 TAKING OXYBUTYNIN CHLORIDE ER 10 MG TABLET EXTENDED RELEASE 24 HOUR 1 TABLET ORALLY ONCE A DAY, NOTES: 04/11 2100 TAKING MAGNESIUM OXIDE 400 MG TABLET 1 TABLET NEEDED ORALLY ONCE A DAY, NOTES: 04/11 2100 TAKING PROBIOTIC - CAPSULE 1 TAB ORALLY DAILY, NOTES: 04/11 2100 TAKING FERROUS GLUCONATE 324 (38 FE) MG TABLET 2 TABS ORALLY DAILY, NOTES: 04/11 2100 TAKING TOPAMAX 100 MG TABLET 1 TABLET ORALLY ONCE A DAY, NOTES: 04/11 2100 TAKING DRISDOL 60230 UNIT CAPSULE 1 CAPSULE ORALLY ONCE A WEEK, NOTES: 04/08 MEDICATION LIST REVIEWED AND RECONCILED WITH THE PATIENT PAST MEDICAL HISTORY DEPRESSION FIBROMYALGIA NERVE PAIN MIGRAINES HYPERLIPIDEMIA ASTHMA VINITA MORBID OBESITY ARTHRITIS KNEES, BACK COLLAGENOUS COLITIS ON BX 10/08 FAINTING SPELLS SINCE HEAD INJURY ON 02/27/17 CPAP BYPASS SURGERY 11/03/2013 ENLARGED THYROID ALLERGIES PENICILLIN (FOR ALLERGIES USE ONLY): HIVES: ALLERGY REVIEW OF SYSTEMS REVIEWED BY: PROVIDER: CLEOPATRA PATEL . CONSTITUTIONAL: ANY CHANGE IN YOUR MEDICAL CONDITION? NO . CHILLS NO . FEVER NO . INFECTION: DO YOU HAVE NEW INFECTIONS? NO . DO YOU HAVE HISTORY OF MRSA? NO . MUSCULOSKELETAL: ANY NEW PATTERNS OF PAIN OR NUMBNESS? NO . GASTROENTEROLOGY: ANY NEW CHANGE IN BOWEL CONTROL? NO . GENITOURINARY: ANY NEW CHANGE IN BLADDER CONTROL? NO . IS THERE A CHANCE YOU COULD BE ? NO . HEMATOLOGY/LYMPH: DO YOU TAKE ANY BLOOD THINNERS? (FOR EXAMPLE- COUMADIN, PLAVIX, AGGRENOX, PLATEL, PRADAXA, OR XARELTO) NO . WHEN WAS YOUR LAST DOSE? DATE: TIME: . NEUROLOGY: HAVE YOU FALLEN IN THE PAST 6 MONTHS? NO . ANY NEW EXTREMITY NUMBNESS OR WEAKNESS? NO . CARDIOLOGY: DO YOU HAVE A PACEMAKER OR DEFIBRILLATOR? NO . RESPIRATORY: HAVE YOU BEEN SICK IN THE PAST WEEK? NO . FEVER NO . FLU LIKE SYMPTOMS? NO . COUGH NO . INTEGUMENTARY: DO YOU HAVE ANY RASHES OR OPEN SORES? NO . ALLERGIC/IMMUNO: ARE YOU ALLERGIC TO SHELLFISH OR IV DYE? NO . ANY NEW ALLERGIES? NO . PSYCHIATRIC: DO YOU HAVE THOUGHTS OF HURTING YOURSELF OR SOMEONE ELSE? NO . ARE YOU ABUSED, NEGLECTED, OR IN AN UNSAFE ENVIRONMENT? NO . ENDOCRINOLOGY: ARE YOU DIABETIC? NO . OTHER: DO YOU NEED ANY PRESCRIPTIONS? NO . IF YES, PLEASE LIST: ____ . ANY NEW PROBLEMS WITH YOUR MEDICATIONS? NO . WHEN DID YOU LAST EAT? ____ . WHEN DID YOU LAST DRINK? ____ . WHAT DID YOU LAST DRINK? ____ . NAME OF PERSON DRIVING YOU HOME? ____ . DO YOU HAVE ANY OTHER QUESTIONS OR CONCERNS NO . VITAL SIGNS WT 269 LBS, HT 63 IN, BMI 47.65 INDEX, BP 130/75 MM HG, HR 56 /MIN, RR 18 /MIN, TEMP 97.1 F, OXYGEN SAT % 96%, SAFE IN ENV? (Y/N) YES, NA INITIALS SC 10:05, REVIEWED BY: KATELYN. EXAMINATION GENERAL EXAMINATION: GENERAL APPEARANCE:AWAKE,ALERT. PSYCHAFFECT NORMAL. LUNGS:LUNG SMITH ARE CLEAR TO AUSCULTATION BILATERALLY. GOOD MOVEMENT OF AIR. HEART:S1, S2 IN A REGULAR RATE AND RHYTHM. NO SIGNIFICANT MURMURS, RUBS OR GALLOPS NOTED. BACK:TRIGGER POINTS ELICITED OVER LUMBAR PARASPINALS BILAT.ROJM SPINE AGGREVATES PAIN IN THIS AREA. MUSCULOSKELETAL:MUSCLE STRENGTH TESTING 5/5 BILATERAL LOWER EXTREMITIES. NEUROLOGIC EXAM:DTRS 1-2+ IN ALL 4 EXTREMITIES. 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 PROCEDURE CODES G8730 PAIN ASSESS POS TOOL F/U PLAN DOC G8427 DOC MEDS VERIFIED W/PT OR RE DISPOSITION & COMMUNICATION FOLLOW UP 2WK POST (REASON: BILAT LUMBAR TPI) ELECTRONICALLY SIGNED BY AMANDA JOHNSON ON 05/10/2017 AT 04:49 PM EST DISCLAIMER : THIS IS A VISIT SUMMARY EXTRACTED FROM THE [employer] CHART. IT IS NOT A COPY OF THE [employer] PROGRESS NOTE. OTTO
== END ==
LOC: M PAIN 09:45
PROVIDERS: ATTEND Nurse Practitioner Family
DX: M43.07 Spondylolysis, lumbosacral region (principal); M79.1 Myalgia; G89.29 Other chronic pain; Z79.899 Other long term (current) drug therapy; Z88.0 Allergy status to penicillin

== ENCOUNTER → 2017-05-15 | Outpatient (CLI) | payer MEDICARE, OTHER ==
[~2017-05-15] MED LIST changes: -ALBU17IN; +BUPIVACAINE HCL 0.25% 10 ML VIAL As Ordered; +BUPIVACAINE HCL 0.25% 30 ML VIAL As Ordered; -BUPR300T34; -BUSP15TA47; -BUSP30TA; -CYMB60CA3 PO; -DULO1CAP3; -HYDR-3363; -IBUP100SUS PO; -LYRI150C PO; -LYRI75CA; -OXYB10TA; -PEPC1TAB4 PO; -PROAAER INH; -SIMV20TA2 PO; -SUCR1SS PO; -TOPA100T PO; -TOPI100T9; +TRIAMCINOLONE ACETONIDE SUSP 40 MG/ML VIAL (J3301) As Ordered; -VICO5TAB16 PO; -VITA1CAP40; +diazePAM 5 MG TAB As Ordered; +oxyCODONE 5MG TAB As Ordered; -oxybutynin OR
== END ==
LOC: M PAIN 15:15
DX: G89.29 Other chronic pain (principal); M54.5 Low back pain; M79.1 Myalgia; F32.9 Major depressive disorder, single episode, unspecified; G43.909 Migraine, unspecified, not intractable, without status migrainosus; J45.909 Unspecified asthma, uncomplicated; G47.30 Sleep apnea, unspecified; E66.01 Morbid (severe) obesity due to excess calories; Z68.42 Body mass index [BMI] 45.0-49.9, adult; Z88.0 Allergy status to penicillin; Z79.899 Other long term (current) drug therapy; Z87.891 Personal history of nicotine dependence
CPT/HCPCS: J3301

== ENCOUNTER → 2017-05-30 | Outpatient (REF) | payer MEDICARE, OTHER ==
[2017-05-30 12:45] LABS: HEMATOCRIT 44.9 % (36.0-47.0); HEMOGLOBIN 14.8 g/dl (12.0-16.0); PLATELET COUNT, AUTOMATED 221 10^3/uL (150-450); RED BLOOD COUNT 5.28 10^6/uL (4.00-5.40); RED CELL DISTRIBUTION WIDTH 13.7 % (11.5-14.5); WHITE BLOOD COUNT 6.8 10^3/uL (4.0-10.0)
[2017-05-30 12:58] LABS: TOTAL 25(OH) VITAMIN D 32.2 NG/ML (30.0-100.0)
[2017-05-30 13:03] LABS: ALBUMIN 3.6 GM/DL (3.2-5.2); ALBUMIN/GLOBULIN RATIO 1.13 (1.00-1.93); ALKALINE PHOSPHATASE 77 U/L (45-117); ALT/SGPT 31 U/L (12-78); ANION GAP 7 MEQ/L (8-16); AST/SGOT 18 U/L (7-37); BILIRUBIN,TOTAL 0.3 MG/DL (0.2-1.0); BLOOD UREA NITROGEN 18 MG/DL (7-18); CALCIUM LEVEL 8.8 MG/DL (8.5-10.1); CARBON DIOXIDE LEVEL 25 MEQ/L (21-32); CHLORIDE LEVEL 107 MEQ/L (98-107); CHOLESTEROL LEVEL 226 MG/DL (<200); CHOLESTEROL RISK RATIO 3.373 (<5); CREATININE FOR GFR 0.55 MG/DL (0.55-1.02); FREE T4 0.94 NG/DL (0.76-1.46); GLOMERULAR FILTRATION RATE > 60.0 (>51); GLUCOSE, FASTING 86 MG/DL (70-105); HDL CHOLESTEROL 67 MG/DL (>40); LDL CHOLESTEROL 132.4 MG/DL (<100); NON-HDL-C 159 MG/DL; POTASSIUM SERUM 4.5 MEQ/L (3.5-5.1); SODIUM LEVEL 139 MEQ/L (136-145); TOTAL PROTEIN 6.8 GM/DL (6.4-8.2); TRIGLYCERIDES LEVEL 133 MG/DL (<150)
== END ==
LOC: M SFHCADAM 09:35
DX: F32.9 Major depressive disorder, single episode, unspecified (principal); E55.9 Vitamin D deficiency, unspecified; E78.00 Pure hypercholesterolemia, unspecified
CPT/HCPCS: 84443

== ENCOUNTER → 2017-06-05 | Outpatient (CLI) | payer MEDICARE, OTHER | LOC: M PAIN 11:00 | DX: M53.3 Sacrococcygeal disorders, not elsewhere classified (principal); M43.07 Spondylolysis, lumbosacral region; Z79.899 Other long term (current) drug therapy; Z88.0 Allergy status to penicillin; F32.9 Major depressive disorder, single episode, unspecified; G43.909 Migraine, unspecified, not intractable, without status migrainosus; F07.81 Postconcussional syndrome; E78.5 Hyperlipidemia, unspecified; J45.909 Unspecified asthma, uncomplicated; G47.33 Obstructive sleep apnea (adult) (pediatric); Z98.84 Bariatric surgery status; Z87.891 Personal history of nicotine dependence | CPT/HCPCS: G0463 ==

== ENCOUNTER → 2017-07-09 | Outpatient (REF) | payer MEDICARE, OTHER | LOC: M SFHCLERA 08:28 | DX: C44.702 Unspecified malignant neoplasm of skin of right lower limb, including hip (principal) | CPT/HCPCS: 88305 ==

== ENCOUNTER → 2017-10-29 | Outpatient (CLI) | payer MEDICARE, OTHER | LOC: M RAD 09:57 | DX: E04.1 Nontoxic single thyroid nodule (principal) | CPT/HCPCS: 76536 ==

== ENCOUNTER → 2017-11-19 | Outpatient (REF) | payer MEDICARE, OTHER | LOC: M SFHCLERA 09:21 | DX: D22.5 Melanocytic nevi of trunk (principal); D22.71 Melanocytic nevi of right lower limb, including hip | CPT/HCPCS: 88305 ==

== ENCOUNTER → 2017-12-05 | Outpatient (CLI) | payer MEDICARE, OTHER ==
[2017-12-05 13:40] LABS: THYROID PEROXIDASE ANTIBODY 146.4 U/ML (<60.0)
[2017-12-05 13:53] LABS: FREE T4 0.84 NG/DL (0.76-1.46)
== END ==
LOC: M WUC 08:40
DX: E04.1 Nontoxic single thyroid nodule (principal)
CPT/HCPCS: 84443

== ENCOUNTER → 2017-12-25 | Outpatient (CLI) | payer MEDICARE, OTHER ==
[~2017-12-25] MED LIST changes: -BUPIVACAINE HCL 0.25% 10 ML VIAL As Ordered; -BUPIVACAINE HCL 0.25% 30 ML VIAL As Ordered; +ISOVUE-370 76% 100ML VIAL (Q9967) As Ordered; -TRIAMCINOLONE ACETONIDE SUSP 40 MG/ML VIAL (J3301) As Ordered; -diazePAM 5 MG TAB As Ordered; -oxyCODONE 5MG TAB As Ordered
== END ==
LOC: M RAD 13:51
DX: E04.9 Nontoxic goiter, unspecified (principal)
CPT/HCPCS: Q9967

== ENCOUNTER → 2018-03-06 | Outpatient (CLI) | payer MEDICARE, OTHER ==
[~2018-03-06] MED LIST changes: +E-Z-GAS II EFFERVESCENT PACKET (SODIUM BICARB./CITRIC ACID/SIMETHICONE) As Ordered; +E-Z-HD 98% w/w 340GM SUSP BTL As Ordered; +E-Z-PAQUE 96% w/w SUSP 176GM BTL As Ordered; -ISOVUE-370 76% 100ML VIAL (Q9967) As Ordered
== END ==
LOC: M RAD 09:39
DX: K21.9 Gastro-esophageal reflux disease without esophagitis (principal); E05.90 Thyrotoxicosis, unspecified without thyrotoxic crisis or storm
CPT/HCPCS: 74220

== ENCOUNTER → 2018-04-26 | Outpatient (REF) | payer MEDICARE, OTHER ==
[2018-04-26 19:53] LABS: HEMATOCRIT 46.5 % (36.0-47.0); HEMOGLOBIN 14.8 g/dl (12.0-15.5); MEAN CORPUSCULAR HEMOGLOBIN 27.3 pg (27.0-33.0); MEAN CORPUSCULAR HGB CONC 31.8 g/dl (32.0-36.5); MEAN CORPUSCULAR VOLUME 85.8 fl (80.0-96.0); PLATELET COUNT, AUTOMATED 237 10^3/uL (150-450); RED BLOOD COUNT 5.42 10^6/uL (4.00-5.40); RED CELL DISTRIBUTION WIDTH 13.7 % (11.5-14.5); WHITE BLOOD COUNT 7.3 10^3/uL (4.0-10.0)
[2018-04-26 20:23] LABS: ALBUMIN 4.1 GM/DL (3.2-5.2); ALBUMIN/GLOBULIN RATIO 1.28 (1.00-1.93); ALKALINE PHOSPHATASE 114 U/L (45-117); ALT/SGPT 39 U/L (12-78); ANION GAP 8 MEQ/L (8-16); AST/SGOT 17 U/L (7-37); BILIRUBIN,TOTAL 0.4 MG/DL (0.2-1.0); BLOOD UREA NITROGEN 16 MG/DL (7-18); CALCIUM LEVEL 8.9 MG/DL (8.5-10.1); CARBON DIOXIDE LEVEL 25 MEQ/L (21-32); CHLORIDE LEVEL 108 MEQ/L (98-107); CHOLESTEROL LEVEL 268 MG/DL (<200); CHOLESTEROL RISK RATIO 3.774 (<5); CREATININE FOR GFR 0.62 MG/DL (0.55-1.30); FERRITIN 74 NG/ML (8-252); FREE T4 0.91 NG/DL (0.76-1.46); GLOMERULAR FILTRATION RATE > 60.0 (>51); GLUCOSE, FASTING 86 MG/DL (70-100); HDL CHOLESTEROL 71 MG/DL (>40); IRON (FE) 78 UG/DL (50-170); LDL CHOLESTEROL 160 MG/DL (<100); NON-HDL-C 197 MG/DL; POTASSIUM SERUM 4.6 MEQ/L (3.5-5.1); SODIUM LEVEL 141 MEQ/L (136-145); TOTAL 25(OH) VITAMIN D 30.7 NG/ML (30.0-100.0); TOTAL IRON BINDING CAPACITY 339 UG/DL (250-450); TOTAL PROTEIN 7.3 GM/DL (6.4-8.2); TRIGLYCERIDES LEVEL 185 MG/DL (<150); VITAMIN B12 LEVEL 589 PG/ML (247-911)
[2018-04-29 12:12] LABS: FOLATE 8.9 NG/ML (>5.4)
== END ==
LOC: M SFHCADAM 16:13
DX: F32.9 Major depressive disorder, single episode, unspecified (principal); E55.9 Vitamin D deficiency, unspecified; E04.1 Nontoxic single thyroid nodule; Z98.84 Bariatric surgery status; R13.10 Dysphagia, unspecified; G47.33 Obstructive sleep apnea (adult) (pediatric); Z23 Encounter for immunization
CPT/HCPCS: 82746

== ENCOUNTER → 2018-11-18 | Outpatient (CLI) | payer MEDICARE, OTHER ==
[~2018-11-18] MED LIST changes: +ALBU17IN; +BUPR300T34; +BUSP15TA47; +BUSP30TA; +CYMB60CA3 PO; +DULO1CAP3; -E-Z-GAS II EFFERVESCENT PACKET (SODIUM BICARB./CITRIC ACID/SIMETHICONE) As Ordered; -E-Z-HD 98% w/w 340GM SUSP BTL As Ordered; -E-Z-PAQUE 96% w/w SUSP 176GM BTL As Ordered; +HYDR-3363; +IBUP100S44 PO; +LYRI150C PO; +LYRI75CA; +OXYB10TA; +PEPC1TAB5 PO; +PROAAER INH; +SIMV20TA2 PO; +SUCR1SS PO; +TOPA100T PO; +TOPI100T9; +VICO5TAB16 PO; +VITA50005; +oxybutynin OR
[2018-11-18 13:25] LABS: BLOOD UREA NITROGEN 16 MG/DL (7-18); CALCIUM LEVEL 8.1 MG/DL (8.5-10.1); CARBON DIOXIDE LEVEL 26 MEQ/L (21-32); CHLORIDE LEVEL 110 MEQ/L (98-107); CREATININE FOR GFR 0.78 MG/DL (0.55-1.30); GLOMERULAR FILTRATION RATE > 60.0 (>51); GLUCOSE, FASTING 62 MG/DL (70-100); PHOSPHORUS LEVEL 3.7 MG/DL (2.5-4.9); POTASSIUM SERUM 4.1 MEQ/L (3.5-5.1); SODIUM LEVEL 142 MEQ/L (136-145)
[2018-11-18 13:28] LABS: PTH INTACT 176.4 PG/ML (18.5-88.0); TOTAL 25(OH) VITAMIN D 17.4 NG/ML (30.0-100.0)
[2018-11-23 08:06] LABS: THRYOGLOBULIN ANTIBODIES (ATA) 6.2 IU/mL (0.0-0.9); THYROGLOBULIN RIA < 2.0 ng/mL (.)
== END ==
LOC: M WUC 10:09
PROVIDERS: ATTEND Physician Assistant Medical
DX: E89.0 Postprocedural hypothyroidism (principal); C80.1 Malignant (primary) neoplasm, unspecified; E83.51 Hypocalcemia

== ENCOUNTER → 2018-12-04 | Outpatient (REF) | payer MEDICARE, OTHER ==
[~2018-12-04] MED LIST changes: -DULO1CAP3; +DULO1CAP6
== END ==
LOC: M SFHCPLAZ 18:21
PROVIDERS: ATTEND Dermatology
DX: D22.4 Melanocytic nevi of scalp and neck (principal); D22.5 Melanocytic nevi of trunk

== ENCOUNTER → 2019-01-29 | Outpatient (CLI) | payer MEDICARE, OTHER ==
[~2019-01-29] MED LIST changes: -OXYB10TA; +OXYB10TA2
[2019-01-29 13:40] LABS: IONIZED CALCIUM 4.5 MG/DL (4.5-5.3)
[2019-01-29 14:32] LABS: BLOOD UREA NITROGEN 17 MG/DL (7-18); CALCIUM LEVEL 8.3 MG/DL (8.5-10.1); CARBON DIOXIDE LEVEL 24 MEQ/L (21-32); CHLORIDE LEVEL 111 MEQ/L (98-107); FREE T4 1.56 NG/DL (0.76-1.46); GLOMERULAR FILTRATION RATE > 60.0 (>51); GLUCOSE, FASTING 115 MG/DL (70-100); POTASSIUM SERUM 4.2 MEQ/L (3.5-5.1); SODIUM LEVEL 142 MEQ/L (136-145); THYROID STIMULATING HORMONE 0.051 uIU/ML (0.358-3.740)
[2019-01-29 14:33] LABS: PTH INTACT 124.8 PG/ML (18.5-88.0); TOTAL 25(OH) VITAMIN D 30.9 NG/ML (30.0-100.0)
== END ==
LOC: M WUC 12:37
PROVIDERS: ATTEND Physician Assistant Medical
DX: E55.9 Vitamin D deficiency, unspecified (principal); E89.0 Postprocedural hypothyroidism

== ENCOUNTER → 2019-05-26 | Outpatient (CLI) | payer MEDICARE, OTHER ==
[2019-05-26 10:58] LABS: HEMOGLOBIN 13.2 g/dl (12.0-15.5); MEAN CORPUSCULAR HEMOGLOBIN 26.2 pg (27.0-33.0); MEAN CORPUSCULAR HGB CONC 30.7 g/dl (32.0-36.5); MEAN CORPUSCULAR VOLUME 85.3 fl (80.0-96.0); PLATELET COUNT, AUTOMATED 188 10^3/uL (150-450); RED BLOOD COUNT 5.04 10^6/uL (4.00-5.40)
[2019-05-26 11:35] LABS: ALBUMIN 3.4 GM/DL (3.2-5.2); ALT/SGPT 25 U/L (12-78); BILIRUBIN,TOTAL 0.9 MG/DL (0.2-1.0); BLOOD UREA NITROGEN 15 MG/DL (7-18); CALCIUM LEVEL 8.2 MG/DL (8.5-10.1); CARBON DIOXIDE LEVEL 22 MEQ/L (21-32); CHLORIDE LEVEL 111 MEQ/L (98-107); CHOLESTEROL LEVEL 209 MG/DL (<200); CREATININE FOR GFR 0.83 MG/DL (0.55-1.30); FERRITIN 28 NG/ML (8-252); GLOMERULAR FILTRATION RATE > 60.0 (>51); GLUCOSE, FASTING 78 MG/DL (70-100); HDL CHOLESTEROL 55 MG/DL (>40); IRON (FE) 65 UG/DL (50-170); LDL CHOLESTEROL 123 MG/DL (<100); NON-HDL-C 154 MG/DL; PERCENT SATURATION 18.2 % (13.2-45.0); POTASSIUM SERUM 4.1 MEQ/L (3.5-5.1); SODIUM LEVEL 142 MEQ/L (136-145); TOTAL IRON BINDING CAPACITY 357 UG/DL (250-450); TOTAL PROTEIN 6.3 GM/DL (6.4-8.2); TRIGLYCERIDES LEVEL 156 MG/DL (<150)
[2019-05-26 11:38] LABS: TOTAL 25(OH) VITAMIN D 48.5 NG/ML (30.0-100.0); VITAMIN B12 LEVEL 859 PG/ML (247-911)
[2019-05-26 13:43] LABS: HEMOGLOBIN A1c 5.4 %
== END ==
LOC: M WUC 08:05
PROVIDERS: ATTEND Family Medicine
DX: G47.33 Obstructive sleep apnea (adult) (pediatric) (principal); E83.51 Hypocalcemia; Z98.84 Bariatric surgery status; Z79.899 Other long term (current) drug therapy

== ENCOUNTER → 2019-05-26 | Outpatient (CLI) | payer MEDICARE, OTHER ==
[2019-05-26 11:25] LABS: BLOOD UREA NITROGEN 15 MG/DL (7-18); CALCIUM LEVEL 8.2 MG/DL (8.5-10.1); CARBON DIOXIDE LEVEL 20 MEQ/L (21-32); CHLORIDE LEVEL 112 MEQ/L (98-107); FREE T4 1.18 NG/DL (0.76-1.46); GLOMERULAR FILTRATION RATE > 60.0 (>51); GLUCOSE, FASTING 78 MG/DL (70-100); POTASSIUM SERUM 4.1 MEQ/L (3.5-5.1); SODIUM LEVEL 143 MEQ/L (136-145)
[2019-05-26 11:29] LABS: TOTAL 25(OH) VITAMIN D 47.6 NG/ML (30.0-100.0)
== END ==
LOC: M WUC 08:11
PROVIDERS: ATTEND Physician Assistant Medical
DX: E55.9 Vitamin D deficiency, unspecified (principal); E89.0 Postprocedural hypothyroidism

== ENCOUNTER → 2019-05-31 | Outpatient (REF) | payer MEDICARE, OTHER | LOC: M LAB 11:10 | PROVIDERS: ATTEND Physician Assistant Medical | DX: E55.9 Vitamin D deficiency, unspecified (principal) ==

== ENCOUNTER → 2019-06-20 | Outpatient (CLI) | payer MEDICARE, OTHER ==
[~2019-06-20] MED LIST changes: -BUPR300T34; +BUPR300T92; -OXYB10TA2; +OXYB10TA23
[2019-06-20 14:27] LABS: FOLATE 8.9 NG/ML
== END ==
LOC: M WUC 11:38
PROVIDERS: ATTEND Psychiatry & Neurology Neurology
DX: G90.09 Other idiopathic peripheral autonomic neuropathy (principal)

== ENCOUNTER → 2019-07-30 | Outpatient (CLI) | payer MEDICARE, OTHER ==
--- NOTE | 2019-07-31 02:15 | ECWPNPC ---
PATIENT NAME: LOY QUINN : 1960 GENDER: FEMALE VISIT DATE: 07/30/2019 DISCHARGE DATE: 07/30/19 1430 VISIT LOCKED DATE TIME: PHYSICIAN: CLEOPATRA COPELAND PHYSICIAN PAGER NO: [phone] RESOURCE: CLEOPATRA COPELAND REASON FOR APPOINTMENT 1. FIBROMYALGIA/CHRONIC PAIN BACK HISTORY OF PRESENT ILLNESS PAIN SCREENIN-YEAR-OLD FEMALE KNOWN TO OUR PRACTICE REFERRED BY DR. MELARA FOR CHRONIC LOW BACK PAIN AND LOWER EXTREMITY PAIN. LAST VISIT WAS IN 2018. SINCE THEN SHE HAS BEEN DEALING WITH MELANOMA RIGHT ANKLE AND THYROID CANCER. SHE HAS HAD THYROID REMOVED AND LESION OVER RIGHT ANKLE REMOVED. LYMPH NODE TESTING HAS BEEN NEGATIVE. SHE HAS NOT NEEDED CHEMOTHERAPY OR RADIATION. HAD TRIGGER POINT INJECTIONS AT OUR CLINIC IN THE PAST THAT WAS HELPFUL. REVIEWED MRI AND DISCUSS TREATMENT OPTIONS. RATING PAIN LEVEL A 7/10. PAIN IS DESCRIBED CONTINUOUS, BURNING AND ACHING. DESCRIBES NIGHTTIME AWAKENINGS DUE TO PAIN. DENIES RECENT FEVER, ILLNESS OR WEIGHT LOSS. DENIES BOWEL OR BLADDER INCONTINENCE. PATIENT HAS A COMPLAINT OF ACUTE OR CHRONIC PAIN :YES FALL RISK SCREENING: SCREENING :NO FALLS REPORTED IN THE LAST YEAR CURRENT MEDICATIONS TAKING CALCIUM CITRATE 1040 MG TABLET 1 TABLET ORALLY TWICE A DAY TAKING POTASSIUM 99 MG TABLET 1 TABLET ORALLY ONCE A DAY TAKING VITAMIN C 500 MG TABLET CHEWABLE 1 TABLET ORALLY ONCE A DAY TAKING BIOTIN 5 MG CAPSULE 2 TABLET ORALLY BEFORE BEDTIME TAKING VITAMIN B12 1000 TABLET 1 TABLET ORALLY ONCE A DAY TAKING MULTIVITAL TABLET 2 TAB(S) ORALLY ONCE A DAY TAKING MAGNESIUM OXIDE 500 MG TABLET 2 TABLETS ORALLY BEFORE BEDTIME TAKING PROBIOTIC - CAPSULE 1 TAB ORALLY DAILY TAKING FERROUS GLUCONATE 324 (38 FE) MG TABLET 2 TABS ORALLY DAILY TAKING TOPIRAMATE 100 MG TABLET TAKE ONE AND ONE HALF TABLETS BY MOUTH AT BEDTIME ORAL DAILY TAKING LEVOTHYROXINE SODIUM 137 MCG CAPSULE 2 TABLETS ORALLY DAILY TAKING DRISDOL 81596 UNIT CAPSULE 1 CAPSULE ORALLY TWICE A WEEK ON SUNDAY AND TAKING MOMETASONE FUROATE 0.1 % OINTMENT 1 APPLICATION TO AFFECTED AREA EXTERNALLY TO RASH ON LEGS ONCE A DAY NEEDED TAKING ONDANSETRON HCL 4 MG TABLET 1 TABLET ORALLY EVERY 8 HOURS NEEDED FOR MIGRAINE TAKING OXYBUTYNIN CHLORIDE ER 10 MG TABLET EXTENDED RELEASE 24 HOUR 1 TABLET ORALLY BEFORE BEDTIME TAKING VENTOLIN HFA 108 (90 BASE) MCG/ACT AEROSOL SOLUTION 2 PUFFS NEEDED INHALATION EVERY 4-6 HRS PRN SOB TAKING LYRICA 100 MG CAPSULE 1 CAPSULE ORALLY--CODE F BID TAKING WELLBUTRIN SR 150 MG TABLET EXTENDED RELEASE 12 HOUR 1 TABLET ORALLY TWICE A DAY TAKING HYDROXYZINE HCL 25 MG TABLET 1 -2 TABLETS ORALLY EVERY 8 HRS NEEDED FOR ITCHING, MDD=6 TAKING MAY HAVE - - 5-HTP 100 MG, 2 TABLETS ORALLY DAILY TAKING AMLACTIN 12 % LOTION 1 APPLICATION EXTERNALLY TWICE A DAY NEEDED TAKING VITAMIN D3 50 MCG (2000 UT) TABLET 3 TABLETS ORALLY ONCE A DAY TAKING FIBER - CAPSULE 2 CAPSULES ORALLY DAILY TAKING MELATONIN 5 MG TABLET 4 TABLETS IN THE EVENING ORALLY BEFORE BEDTIME TAKING OMEPRAZOLE 40 MG CAPSULE DELAYED RELEASE 1 CAPSULE ORALLY BEFORE BEDTIME TAKING SUMATRIPTAN SUCCINATE 50 MG TABLET 1 TABLET AT LEAST 2 HOURS BETWEEN DOSES NEEDED ORALLY TWICE A DAY NEEDED TAKING VITAMIN E 400 UNIT CAPSULE 2 CAPSULES ORALLY BEFORE BEDTIME TAKING ZINC 50 MG TABLET 2 TABLETS ORALLY ONCE A DAY NOT-TAKING SHINGRIX 50 MCG SUSPENSION RECONSTITUTED DIRECTED INTRAMUSCULAR DIRECTED MEDICATION LIST REVIEWED AND RECONCILED WITH THE PATIENT PAST MEDICAL HISTORY DEPRESSION WITH ANXIETY FIBROMYALGIA--WENT TO PAIN CLINIC FOR TPI LAST 05/13, REFERRED AGAIN 06/16 NERVE PAIN MIGRAINES HYPERLIPIDEMIA ASTHMA VINITA MORBID OBESITY ARTHRITIS KNEES, BACK COLLAGENOUS COLITIS ON BX 10/08 FAINTING SPELLS SINCE HEAD INJURY ON 02/27/17 JEFF EN Y GASTRIC BYPASS SURGERY 11/03/2013 ENLARGED THYROID--US 11/12, SIGNIF INC IN SIZE C/W PRIOR08/09; + THYROID AB; ENT REFERRAL 02/12-03/14,SHE WAS TX FOR REFLUX. HAD ESOPHAGRAM SHOWED MASS EFFECT ON ESOPHAGUS FROM THYROID; CT NECK SHOWED IMPINGEMENT OF THYROID ON ESOPAGUS. 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 VERTIGO STRESS INCONTINENCE HYPOCALCEMIA VITAMIN D DEFICIENCY ABNORMAL GAIT ALLERGIES PENICILLIN (FOR ALLERGIES USE ONLY): HIVES - ALLERGY SURGICAL HISTORY LT KNEE CAP REMOVED 2002 RT OVARY REMOVED 1984 APPENDECTOMY 1985 1985 TONSILLECTOMY AND ADNOIDS 1971 RHINOPLASTY 1989 D&C X3 09/2011, 12/2012 GASTRIC BYPASS 11/08 COLONOSCOPY--COLLAGENOUS COLITIS 10/08 HYSTERECTOMY 2012 MELANOMA/LYMPH NODES REMOVED 08/12 THYROID CYST ASPIRATION/ FNA) DR BONDS SYR ? 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 1 SON(S) - HEALTHY. DENIES FAMILY HISTORY OF MM AND PANCREATIC CANCER. SOCIAL HISTORY GENERAL: TOBACCO USE ARE YOU A:FORMER SMOKER HOW LONG HAS IT BEEN SINCE YOU LAST SMOKED?> 10 YEARS EDUCATION LEVEL OF EDUCATION:COLLEGE DIET: NO CONCENTRATED SWEETS., CARBOHYDRATE CONTROLLED, NO ADDED SALT. LANGUAGE LANGUAGES SPOKEN:GAMBIAN DOMESTIC VIOLENCE DO YOU FEEL SAFE IN YOUR ENVIRONMENT?YES RECREATIONAL DRUG USE DRUG USE?NO EXERCISE: DAILY. LEARNING BARRIERS / SPECIAL NEEDS CHANGE FROM LAST VISIT?NO BARRIERS TO LEARNING?NO HEARING IMPAIRED?NO VISION IMPAIRED?YES :CORRECTIVE LENSES COGNITIVELY IMPAIRED?NO READINESS TO LEARN?YES LEARNING PREFERENCES?NO LEARNING CAPABILITIES PRESENT?YES EMOTIONAL BARRIERS?NO SPECIAL DEVICES?YES :CANE NEEDED DUE TO LACK OF LEFT KNEE CAP ORDNANCE HANDLER NEEDED?NO PAIN CLINIC PFS, CLERGY, PUBLIC HEALTH REFERRALS PFS REFERRAL NEEDED?NO CLERGY REFERRAL NEEDED?NO PUBLIC HEALTH REFERRAL NEEDED?NO WAS THE PROVIDER NOTIFIED OF ANY PERTINENT INFO?NO HAS THE PATIENT BEEN EDUCATED REGARDING HIS/HER PLAN OF CARE?YES HAS THE PATIENT BEEN EDUCATED REGARDING PAIN, THE RISK FOR PAIN, THE IMPORTANCE OF EFFECTIVE PAIN MANAGEMENT, AND THE PAIN ASSESSMENT PROCESS?YES LATEX QUESTIONNAIRE LATEX ALLERGY : HAVE YOU EVER DEVELOPED ANY TYPE OF REACTION AFTER HANDLING LATEX PRODUCTS SUCH RUBBER GLOVES, CONDOMS, DIAPHRAGMS, BALLOONS, SOCKS, OR UNDERWEAR?NO LATEX ALLERGY : HAVE YOU EVER DEVELOPED ANY TYPE OF REACTION DURING OR AFTER DENTAL APPOINTMENT, VAGINAL/RECTAL EXAMINATION, SURGICAL PROCEDURE, OR ANY OTHER EXPOSURE?NO LATEX RISK : HAVE YOU EVER HAD ANY DIFFICULTY BREATHING OR HIVES AFTER EATING OR HANDLING ANY FRUITS, OR VEGETABLES; SUCH KIWI, BANANAS, STONE FRUITS, OR CHESTNUTSNO LATEX RISK : DO YOU HAVE A PREVIOUS PERSONAL HISTORY OF MORE THAN NINE SURGERIES, SPINA BIFIDA, OR REPEATED CATHERIZATIONS? YES - PLEASE INDICATE : > 9 SURGERIES LATEX RISK : ARE YOU FREQUENTLY EXPOSED TO LATEX PRODUCTS IN YOUR OCCUPATION?NO DATE ASKED : 07/30/2019 CAFFEINE CAFFEINE USE?YES ADVANCE DIRECTIVE ADVANCE DIRECTIVE DISCUSSED WITH PATIENT:YES PATIENT HAS HCP AND LIVING WILL - ON FILE [id number] MARITAL STATUS: . ALCOHOL SCREENING DID YOU HAVE A DRINK CONTAINING ALCOHOL IN THE PAST YEAR?YES HOW OFTEN DID YOU HAVE A DRINK CONTAINING ALCOHOL IN THE PAST YEAR?MONTHLY OR LESS (1 POINT) HOW MANY DRINKS DID YOU HAVE ON A TYPICAL DAY WHEN YOU WERE DRINKING IN THE PAST YEAR?1 OR 2 (0 POINTS) HOW OFTEN DID YOU HAVE SIX OR MORE DRINKS ON ONE OCCASION IN THE PAST YEAR?NEVER (0 POINTS) POINTS1 INTERPRETATIONNEGATIVE OCCUPATION: DISABLED. HOSPITALIZATION/MAJOR DIAGNOSTIC PROCEDURE ABOVE REVIEW OF SYSTEMS REVIEWED BY: PROVIDER: CLEOPATRA PATEL . CONSTITUTIONAL: ANY CHANGE IN YOUR MEDICAL CONDITION? NO . CHILLS NO . FEVER NO . INFECTION: DO YOU HAVE NEW INFECTIONS? NO . DO YOU HAVE HISTORY OF MRSA? NO . MUSCULOSKELETAL: ANY NEW PATTERNS OF PAIN OR NUMBNESS? YES, STATES PAIN INCREASING IN BACK AND RADIATING DOWN BILATERAL LEGS . SYTEMIC LUPUS NO . GASTROENTEROLOGY: ANY NEW CHANGE IN BOWEL CONTROL? YES, STATES BOTH CONSTIPATION AND DIARRHEA . BARRETTS ESOPHAGUS NO . CIRRHOSIS NO . HEPATITIS NO . LIVER FAILURE NO . ACID REFLUX YES . UNEXPLAINED WEIGHT LOSS NO . GENITOURINARY: ANY NEW CHANGE IN BLADDER CONTROL? YES, STRESS INCONTINENCE . IS THERE A CHANCE YOU COULD BE ? NO . HEMATOLOGY/LYMPH: DO YOU TAKE ANY BLOOD THINNERS? (FOR EXAMPLE- COUMADIN, PLAVIX, AGGRENOX, PLATEL, PRADAXA, OR XARELTO) NO . WHEN WAS YOUR LAST DOSE? DATE: TIME: . LOW PLATELET COUNT NO . SICKLE CELL DISEASE NO . VON WILLIEBRANDS NO . FACTOR V LEIDEN NO . THALLASEMIA NO . ANEMIA NO . EASY BRUISING YES, NOT ON ANTICOAGULANTS - SINCE BARIATRIC SURGERY . NEUROLOGY: HAVE YOU FALLEN IN THE PAST 12 MONTHS? YES, STATES MULTIPLE FALLS FROM LEGS GIVING OUT ON HER/MUSCLE SPASMS - NO MAJOR INJURIES, NO ED VISITS . ANY NEW EXTREMITY NUMBNESS OR WEAKNESS? YES, NUMBNESS/TINGLING TO BILATERAL LEGS . HEAD INJURY YES - CONCUSSION FROM FALL IN 2018 . DEMENTIA NO . CEREBRAL PALSY NO . MULTIPLE SCLEROSIS NO . DIZZINESS SENSATION OF ROOM SPINNING, INTERMITTENT ABOUT TWICE A MONTH, LASTING FOR MINUTES . HEADACHE ADMITS, ASSOCIATED WITH PHOTOPHOBIA, ASSOCIATED WITH NAUSEA, FREQUENT1-2X/WEEK . STROKES NO . VERTIGO NO . CARDIOLOGY: DO YOU HAVE A PACEMAKER OR DEFIBRILLATOR? NO . ANGINA NO . HEART ATTACK NO . HEART SURGERY NO . CONGESTIVE HEART FAILURE/FLUID OVERLOAD NO . CHEST PAIN NO . HIGH BLOOD PRESSURE NO . IRREGULAR HEART BEAT NO . RESPIRATORY: HAVE YOU BEEN SICK IN THE PAST WEEK? NO . FEVER NO . FLU LIKE SYMPTOMS? NO . CPAP YES . BYPAP NO . ASTHMA YES . EMPHYSEMA NO . CHRONIC LUNG DISEASES NO . SHORTNESS OF BREATH ON EXERTION YES . COUGH NO . SNORING NO . INTEGUMENTARY: DO YOU HAVE ANY RASHES OR OPEN SORES? NO . ALLERGIC/IMMUNO: ARE YOU ALLERGIC TO IV DYE? NO . ANY NEW ALLERGIES? NO . PSYCHIATRIC: DO YOU HAVE THOUGHTS OF HURTING YOURSELF OR SOMEONE ELSE? NO . ARE YOU ABUSED, NEGLECTED, OR IN AN UNSAFE ENVIRONMENT? NO . ENDOCRINOLOGY: ARE YOU DIABETIC? NO . THYROID DISORDER YES, HYPOTHYROID S/P TOTAL THYROIDECTOMY . OTHER: DO YOU NEED ANY PRESCRIPTIONS? NO . IF YES, PLEASE LIST: ____ . ANY NEW PROBLEMS WITH YOUR MEDICATIONS? NO . WHEN DID YOU LAST EAT? ____ . WHEN DID YOU LAST DRINK? ____ . WHAT DID YOU LAST DRINK? ____ . NAME OF PERSON DRIVING YOU HOME? ____ . DO YOU HAVE ANY OTHER QUESTIONS OR CONCERNS NO . VITAL SIGNS WT 296.0 LBS, HT 63 IN, BMI 52.43 INDEX, BP 153/72 MM HG, HR 56 /MIN, RR 18 /MIN, TEMP 98.6 F, OXYGEN SAT % 96%, SAFE IN ENV? (Y/N) YES, NA INITIALS AW 1300, REVIEWED BY: JS. EXAMINATION GENERAL EXAMINATION: GENERAL AWAKE,ALERT ,PLEAASANT . PSYCH AFFECT NORMAL . LUNGS: LUNG SMITH ARE CLEAR TO AUSCULTATION BILATERALLY. GOOD MOVEMENT OF AIR . HEART: S1, S2 IN A REGULAR RATE AND RHYTHM. NO SIGNIFICANT MURMURS, RUBS OR GALLOPS NOTED . MUSCULOSKELETAL: MUSCLE STRENGTH TESTING 4/5 BILATERAL LOWER EXTREMITIES. LUMBAR: TRIGGER POINTS:, ELICITED WITH PALPATION OVER LUMBAR PARAVERTEBRAL MUSCLES WITH RESTRICTION OF ROM IN THIS AREA. DIAGNOSTIC TESTS REVIEWED MRI L/S SPINE-2017. ASSESSMENTS MYALGIA, OTHER SITE - M79.18 (PRIMARY) TREATMENT MYALGIA, OTHER SITE NOTES: TPI BILAT LOW BACK. PROCEDURE CODES FA211 ESTABILISHED PATIENT [facility] FACILITY CHARGE DISPOSITION & COMMUNICATION FOLLOW UP POST (REASON: TPI BILAT LOW BACK) ELECTRONICALLY SIGNED BY AMANDA JOSE ON 07/30/2019 AT 03:24 PM EST ADDENDUM: 07/30/2019 03:37 PM SONY MARISCAL > REVIEWED INFORMATION ON TRIGGER POINT INJECTION PROCEDURE WITH PATIENT. ALSO REVIEWED PRE-PROCEDURE INSTRUCTIONS. PATIENT VERBALIZED AN UNDERSTANDING. DISCLAIMER : THIS IS A VISIT SUMMARY EXTRACTED FROM THE [employer] CHART. IT IS NOT A COPY OF THE [employer] PROGRESS NOTE. OTTO
== END ==
LOC: M PAIN 13:30
PROVIDERS: ATTEND Nurse Practitioner Family
DX: M79.18 Myalgia, other site (principal); Z86.59 Personal history of other mental and behavioral disorders; G43.909 Migraine, unspecified, not intractable, without status migrainosus; E78.5 Hyperlipidemia, unspecified; J45.909 Unspecified asthma, uncomplicated; G47.33 Obstructive sleep apnea (adult) (pediatric); E55.9 Vitamin D deficiency, unspecified; K21.9 Gastro-esophageal reflux disease without esophagitis; Z98.84 Bariatric surgery status; Z87.891 Personal history of nicotine dependence; Z88.0 Allergy status to penicillin; E66.01 Morbid (severe) obesity due to excess calories; Z68.43 Body mass index [BMI] 50.0-59.9, adult; Z79.899 Other long term (current) drug therapy

== ENCOUNTER → 2019-09-27 | Outpatient (CLI) | payer MEDICARE, OTHER | LOC: M LABSMTC 09:11 | PROVIDERS: ATTEND Anesthesiology | DX: Z01.818 Encounter for other preprocedural examination (principal); Z11.59 Encounter for screening for other viral diseases ==

== ENCOUNTER → 2019-10-18 | Outpatient (CLI) | payer MEDICARE, OTHER | LOC: M LABSMTC 08:20 | PROVIDERS: ATTEND Anesthesiology | DX: Z03.818 Encounter for observation for suspected exposure to other biological agents ruled out (principal); Z11.59 Encounter for screening for other viral diseases ==

== ENCOUNTER → 2019-10-21 | Outpatient (CLI) | payer MEDICARE, OTHER ==
[~2019-10-21] MED LIST changes: +BUPIVACAINE HCL 0.25% 10ML VIAL As Ordered ONE; +BUPIVACAINE HCL 0.25% 30ML VIAL As Ordered ONE; +NORCO, ANEXSIA 5/325MG TABLET (HYDROcodone/ACETAMINOPHEN) As Ordered ONE; +diazePAM 5 MG TAB As Ordered ONE
--- NOTE | 2019-10-22 03:21 | ECWPNPC ---
PATIENT NAME: LOY QUINN : 1960 GENDER: FEMALE VISIT DATE: 10/21/2019 DISCHARGE DATE: 10/21/19 1430 VISIT LOCKED DATE TIME: PHYSICIAN: MAI SMILEY MD PHYSICIAN PAGER NO: [phone] RESOURCE: MAI SMILEY MD REASON FOR APPOINTMENT 1. TPI BILAT LOW BACK HISTORY OF PRESENT ILLNESS HISTORY OF PRESENT ILLNESS: PAIN THE PATIENT DESCRIBES THE PAIN... FALL RISK SCREENING: SCREENING :NO FALLS REPORTED IN THE LAST YEAR CURRENT MEDICATIONS TAKING CALCIUM CITRATE 1040 MG TABLET 1 TABLET ORALLY TWICE A DAY, NOTES: 10/21/19 AM TAKING POTASSIUM 99 MG TABLET 1 TABLET ORALLY ONCE A DAY, NOTES: 10/20/19 TAKING VITAMIN C 500 MG TABLET CHEWABLE 1 TABLET ORALLY ONCE A DAY, NOTES: 10/20/19 TAKING BIOTIN 5 MG CAPSULE 2 TABLET ORALLY BEFORE BEDTIME, NOTES: 10/20/19 TAKING VITAMIN B12 1000 TABLET 1 TABLET ORALLY ONCE A DAY, NOTES: 10/20/19 TAKING MULTIVITAL TABLET 2 TAB(S) ORALLY ONCE A DAY, NOTES: 10/21/19 AM TAKING MAGNESIUM OXIDE 500 MG TABLET 2 TABLETS ORALLY BEFORE BEDTIME, NOTES: 10/20/19 TAKING PROBIOTIC - CAPSULE 1 TAB ORALLY DAILY, NOTES: 10/20/19 TAKING FERROUS GLUCONATE 324 (38 FE) MG TABLET 2 TABS ORALLY DAILY, NOTES: 10/20/19 TAKING TOPIRAMATE 100 MG TABLET TAKE ONE AND ONE HALF TABLETS BY MOUTH AT BEDTIME ORAL DAILY, NOTES: 10/21/19 AM TAKING LEVOTHYROXINE SODIUM 137 MCG CAPSULE 2 TABLETS ORALLY DAILY, NOTES: 10/20/19 AM TAKING DRISDOL 64030 UNIT CAPSULE 1 CAPSULE ORALLY TWICE A WEEK ON SUNDAY AND , NOTES: 10/20/19 TAKING ONDANSETRON HCL 4 MG TABLET 1 TABLET ORALLY EVERY 8 HOURS NEEDED FOR MIGRAINE, NOTES: NONE LATELY TAKING OXYBUTYNIN CHLORIDE ER 10 MG TABLET EXTENDED RELEASE 24 HOUR 1 TABLET ORALLY BEFORE BEDTIME, NOTES: 10/20/19 TAKING VENTOLIN HFA 108 (90 BASE) MCG/ACT AEROSOL SOLUTION 2 PUFFS NEEDED INHALATION EVERY 4-6 HRS PRN SOB, NOTES: LAST WEEK TAKING LYRICA 100 MG CAPSULE 1 CAPSULE ORALLY--CODE F BID, NOTES: 10/21/19 AM TAKING WELLBUTRIN SR 150 MG TABLET EXTENDED RELEASE 12 HOUR 1 TABLET ORALLY TWICE A DAY, NOTES: 10/21/19 AM TAKING HYDROXYZINE HCL 25 MG TABLET 1 -2 TABLETS ORALLY EVERY 8 HRS NEEDED FOR ITCHING, MDD=6, NOTES: 10/20/19 TAKING MAY HAVE - - 5-HTP 100 MG, 2 TABLETS ORALLY DAILY, NOTES: 10/20/19 TAKING AMLACTIN 12 % LOTION 1 APPLICATION EXTERNALLY TWICE A DAY NEEDED, NOTES: 10/20/19 TAKING VITAMIN D3 50 MCG (2000 UT) TABLET 3 TABLETS ORALLY ONCE A DAY, NOTES: 10/20/19 TAKING FIBER - CAPSULE 2 CAPSULES ORALLY DAILY, NOTES: 10/20/19 TAKING MELATONIN 5 MG TABLET 4 TABLETS IN THE EVENING ORALLY BEFORE BEDTIME, NOTES: 10/20/19 TAKING OMEPRAZOLE 40 MG CAPSULE DELAYED RELEASE 1 CAPSULE ORALLY BEFORE BEDTIME, NOTES: 10/20/19 TAKING SUMATRIPTAN SUCCINATE 50 MG TABLET 1 TABLET AT LEAST 2 HOURS BETWEEN DOSES NEEDED ORALLY TWICE A DAY NEEDED, NOTES: LAST WEEK TAKING VITAMIN E 400 UNIT CAPSULE 2 CAPSULES ORALLY BEFORE BEDTIME, NOTES: 10/20/19 TAKING ZINC 50 MG TABLET 2 TABLETS ORALLY ONCE A DAY, NOTES: 10/20/19 TAKING MOMETASONE FUROATE 0.1 % OINTMENT 1 APPLICATION TO AFFECTED AREA EXTERNALLY TO RASH ON LEGS ONCE A DAY NEEDED, NOTES: LAST WEEK MEDICATION LIST REVIEWED AND RECONCILED WITH THE PATIENT PAST MEDICAL HISTORY DEPRESSION WITH ANXIETY FIBROMYALGIA--WENT TO PAIN CLINIC FOR TPI LAST 05/13, REFERRED AGAIN 06/16 NERVE PAIN MIGRAINES HYPERLIPIDEMIA ASTHMA VINITA MORBID OBESITY ARTHRITIS KNEES, BACK COLLAGENOUS COLITIS ON BX 10/08 FAINTING SPELLS SINCE HEAD INJURY ON 02/27/17 JEFF EN Y GASTRIC BYPASS SURGERY 11/03/2013 ENLARGED THYROID--US 11/12, SIGNIF INC IN SIZE C/W PRIOR08/09; + THYROID AB; ENT REFERRAL 02/12-03/14,SHE WAS TX FOR REFLUX. HAD ESOPHAGRAM SHOWED MASS EFFECT ON ESOPHAGUS FROM THYROID; CT NECK SHOWED IMPINGEMENT OF THYROID ON ESOPAGUS. 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 1 SON(S) - HEALTHY. DENIES FAMILY HISTORY OF MM AND PANCREATIC CANCER. SOCIAL HISTORY GENERAL: TOBACCO USE ARE YOU A:FORMER SMOKER HOW LONG HAS IT BEEN SINCE YOU LAST SMOKED?> 10 YEARS LATEX QUESTIONNAIRE LATEX ALLERGY : HAVE YOU EVER DEVELOPED ANY TYPE OF REACTION AFTER HANDLING LATEX PRODUCTS SUCH RUBBER GLOVES, CONDOMS, DIAPHRAGMS, BALLOONS, SOCKS, OR UNDERWEAR?NO LATEX ALLERGY : HAVE YOU EVER DEVELOPED ANY TYPE OF REACTION DURING OR AFTER DENTAL APPOINTMENT, VAGINAL/RECTAL EXAMINATION, SURGICAL PROCEDURE, OR ANY OTHER EXPOSURE?NO LATEX RISK : HAVE YOU EVER HAD ANY DIFFICULTY BREATHING OR HIVES AFTER EATING OR HANDLING ANY FRUITS, OR VEGETABLES; SUCH KIWI, BANANAS, STONE FRUITS, OR CHESTNUTSNO LATEX RISK : DO YOU HAVE A PREVIOUS PERSONAL HISTORY OF MORE THAN NINE SURGERIES, SPINA BIFIDA, OR REPEATED CATHERIZATIONS? YES - PLEASE INDICATE : > 9 SURGERIES LATEX RISK : ARE YOU FREQUENTLY EXPOSED TO LATEX PRODUCTS IN YOUR OCCUPATION?NO DATE ASKED : 10/17/2019 ALCOHOL SCREENING DID YOU HAVE A DRINK CONTAINING ALCOHOL IN THE PAST YEAR?YES HOW OFTEN DID YOU HAVE SIX OR MORE DRINKS ON ONE OCCASION IN THE PAST YEAR?NEVER (0 POINTS) HOW MANY DRINKS DID YOU HAVE ON A TYPICAL DAY WHEN YOU WERE DRINKING IN THE PAST YEAR?1 OR 2 (0 POINTS) HOW OFTEN DID YOU HAVE A DRINK CONTAINING ALCOHOL IN THE PAST YEAR?MONTHLY OR LESS (1 POINT) POINTS1 INTERPRETATIONNEGATIVE RECREATIONAL DRUG USE DRUG USE?NO CAFFEINE CAFFEINE USE?YES RESTORATIONIST [id number] HOAHAOISM LANGUAGE LANGUAGES SPOKEN:ARMENIAN EDUCATION LEVEL OF EDUCATION:COLLEGE LEARNING BARRIERS / SPECIAL NEEDS CHANGE FROM LAST VISIT?NO BARRIERS TO LEARNING?NO HEARING IMPAIRED?NO VISION IMPAIRED?YES :CORRECTIVE LENSES COGNITIVELY IMPAIRED?NO READINESS TO LEARN?YES LEARNING PREFERENCES?NO LEARNING CAPABILITIES PRESENT?YES EMOTIONAL BARRIERS?NO SPECIAL DEVICES?YES :CANE, OTHER NEEDED DUE TO LACK OF LEFT KNEE CAP, ELECTRIC CART FOR SHOPPING NEEDED FRAMING MACHINE TENDER NEEDED?NO DOMESTIC VIOLENCE DO YOU FEEL SAFE IN YOUR ENVIRONMENT?YES OCCUPATION: DISABLED. DIET: NO CONCENTRATED SWEETS., CARBOHYDRATE CONTROLLED, NO ADDED SALT. EXERCISE: DAILY. MARITAL STATUS: . NEW PATIENT PAIN DIARY TODAY'S VISIT 10/17/2019 PATIENT DESCRIBES PAIN :ACHING, IT COMES AND GOES, SHARP, STABBING, TENDER, THROBBING, SORE, SHOOTING, OTHER "PINS AND NEEDLES" FROM 0-10, WHAT LEVEL IS YOUR PAIN TODAY?7 PRECIPITATING FACTORS ACITVITY, EXCESSIVE WALKING OR BENDING ALLEVIATING FACTORS LYING DOWN, ELEVATING LEGS, BIOFREEZE IMPACT ON FUNCTION LIMITS HER ON WHAT SHE IS ABLE TO DO PAIN CLINIC PFS, CLERGY, PUBLIC HEALTH REFERRALS PFS REFERRAL NEEDED?NO CLERGY REFERRAL NEEDED?NO PUBLIC HEALTH REFERRAL NEEDED?NO HAS THE PATIENT BEEN EDUCATED REGARDING HIS/HER PLAN OF CARE?YES HAS THE PATIENT BEEN EDUCATED REGARDING PAIN, THE RISK FOR PAIN, THE IMPORTANCE OF EFFECTIVE PAIN MANAGEMENT, AND THE PAIN ASSESSMENT PROCESS?YES ADVANCE DIRECTIVE ADVANCE DIRECTIVE DISCUSSED WITH PATIENT:YES PATIENT HAS HCP AND LIVING WILL - ON FILE HOSPITALIZATION/MAJOR DIAGNOSTIC PROCEDURE ABOVE REVIEW OF SYSTEMS REVIEWED BY: PROVIDER: MAI SMILEY MD . CONSTITUTIONAL: ANY CHANGE IN YOUR MEDICAL CONDITION? NO . CHILLS NO . FEVER NO . INFECTION: DO YOU HAVE NEW INFECTIONS? NO . DO YOU HAVE HISTORY OF MRSA? NO . MUSCULOSKELETAL: ANY NEW PATTERNS OF PAIN OR NUMBNESS? NO . GASTROENTEROLOGY: ANY NEW CHANGE IN BOWEL CONTROL? NO . GENITOURINARY: ANY NEW CHANGE IN BLADDER CONTROL? NO . IS THERE A CHANCE YOU COULD BE ? NO . HEMATOLOGY/LYMPH: DO YOU TAKE ANY BLOOD THINNERS? (FOR EXAMPLE- COUMADIN, PLAVIX, AGGRENOX, PLATEL, PRADAXA, OR XARELTO) NO . WHEN WAS YOUR LAST DOSE? DATE: TIME: . NEUROLOGY: HAVE YOU FALLEN IN THE PAST 12 MONTHS? YES, STATES SHE HAS FALLEN 5-6 TIMES-HER LEGS JUST GIVE OUT, NOT EVALATED AFTER, NO INJURY . ANY NEW EXTREMITY NUMBNESS OR WEAKNESS? YES, SOMETIMES LEFT ARM GOES NUMB/TINGLING OVER PAT 2-3 WEEKS . CARDIOLOGY: DO YOU HAVE A PACEMAKER OR DEFIBRILLATOR? NO . RESPIRATORY: HAVE YOU BEEN SICK IN THE PAST WEEK? NO . FEVER NO . FLU LIKE SYMPTOMS? NO . COUGH NO . INTEGUMENTARY: DO YOU HAVE ANY RASHES OR OPEN SORES? NO . ALLERGIC/IMMUNO: ARE YOU ALLERGIC TO IV DYE? NO . ANY NEW ALLERGIES? NO . PSYCHIATRIC: DO YOU HAVE THOUGHTS OF HURTING YOURSELF OR SOMEONE ELSE? NO . ARE YOU ABUSED, NEGLECTED, OR IN AN UNSAFE ENVIRONMENT? NO . ENDOCRINOLOGY: ARE YOU DIABETIC? NO . OTHER: DO YOU NEED ANY PRESCRIPTIONS? NO . IF YES, PLEASE LIST: ____ . ANY NEW PROBLEMS WITH YOUR MEDICATIONS? NO . WHEN DID YOU LAST EAT? 10/20/19 PM . WHEN DID YOU LAST DRINK? 10/21/19 0933 . WHAT DID YOU LAST DRINK? WATER . NAME OF PERSON DRIVING YOU HOME? . DO YOU HAVE ANY OTHER QUESTIONS OR CONCERNS NO . VITAL SIGNS WT 294.2 LBS, HT 63 IN, BMI 52.11 INDEX, BP 152/73 MM HG, HR 79 /MIN, RR 18 /MIN, TEMP 98.4 F, OXYGEN SAT % 97%, SAFE IN ENV? (Y/N) Y, NA INITIALS NC 12:29, REVIEWED BY: EM. EXAMINATION GENERAL EXAMINATION: THE PATIENT IS ALERT, ORIENTED TIMES THREE AND COOPERATIVE. HEART SHOWS REGULAR RHYTHM, NO MURMURS AND NO GALLOPS. LUNGS ARE CLEAR TO AUSCULTATION. ASSESSMENTS MYALGIA, OTHER SITE - M79.18 PROCEDURES PN TRIGGER POINT INJECTION NO STEROIDS DATE OF PROCEDURE : PRE PROCEDURE DIAGNOSIS 1. MYALGIA 2. PAIN AT BILATERAL LOWER BACK AREA POST PROCEDURE DIAGNOSIS 1. MYALGIA 2. PAIN AT BILATERAL LOWER BACK AREA PROCEDURE TRIGGER POINT INJECTION AT BILATERAL LOWER BACK AREA SURGEON DR. MAI SMILEY DOUBLE ENDING MACHINE OPERATOR NONE ANESTHESIA LOCAL PRE PROCEDURE NOTE 59-YEAR-OLD PATIENT WITH HISTORY OF CHRONIC PAIN AT LEFT AND RIGHT LOWER BACK AREA. I EVALUATED THE PATIENT AND REVIEWED THE CHART. THERE IS EVIDENCE OF BANDS OF TISSUE WITH RESTRICTION OF MOVEMENT AND PRESENCE OF TRIGGER POINT AT THE LEFT AND RIGHT LOWER BACK AREA. I WENT OVER THE RISKS, ALTERNATIVES, AND BENEFITS ASSOCIATED WITH THIS PROCEDURE. THE PATIENT WOULD LIKE TO PROCEED AND GAVE CONSENT TO PERFORM THE PROCEDURE. THE PATIENT DENIES UNEXPLAINABLE WEIGHT LOSS, FEVER, CHILLS, OR NEW CHANGES IN URINARY OR BOWEL CONTROL. THE PATIENT IS COVID-19 NEGATIVE DESCRIPTION OF PROCEDURE THE PATIENT WAS BROUGHT TO THE PROCEDURE ROOM AND PLACED IN THE SITTING POSITION. THE AREA WAS CLEANED WITH ALCOHOL. THE PROCEDURE WAS DONE USING ASEPTIC STERILE TECHNIQUES. I CHECKED LATERALITY AND THE LEVEL WHERE THE PROCEDURE WAS GOING TO BE PERFORMED WITH THE PATIENT AND THE SUPPORTING STAFF AT THE MOMENT OF THE TIME OUT IN THE PROCEDURE ROOM. USING A 25-GAUGE NEEDLE, TRIGGER POINTS WERE INJECTED INTO THE LEFT AND RIGHT LOWER BACK AREA WITH A TOTAL OF 40 ML OF BUPIVACAINE 0.25%. AGREED WITH THE PATIENT THE PROCEDURE WAS DONE WITHOUT STEROIDS. THERE WAS NO EVIDENCE OF BLOOD, PARESTHESIA OR CEREBROSPINAL FLUID DURING THE PROCEDURE. THE PATIENT WAS SENT TO THE RECOVERY ROOM. THE PATIENT WAS MOVING THE EXTREMITIES AND DOING WELL. THERE WAS NO COMPLICATION DURING THE PROCEDURE POST PROCEDURE NOTE THE PROCEDURE DONE WAS DISCUSSED WITH THE PATIENT. THE PATIENT WILL BE SEEN IN A FOLLOW UP IN THE NEXT FEW WEEKS. I AM LOOKING FOR LONG LASTING PAIN RELIEF FOR THE PATIENT WITH THIS INTERVENTION. INSTRUCTIONS WERE GIVEN, QUESTIONS WERE ANSWERED, AND THE PATIENT EXPRESSED UNDERSTANDING AND AGREES WITH THE PLAN. I, FE FRENCH, DOCUMENTED THE ABOVE INFORMATION ACTING A SCRIBE FOR DR. SMILEY. I HAVE REVIEWED THE ABOVE DOCUMENT, WRITTEN BY FE FRENCH, FLOW MANAGER, AND I VERIFY THAT IT IS ACCURATE PROCEDURE CODES 89289 INJ TRIGGER POINT /2 [facility] [place] [facility] FOLLOW UP F/UP WITH MINESWEEPING OFFICER (REASON: POST TPI EMMETT LOW BACK) ELECTRONICALLY SIGNED BY MAI SMILEY MD, MD ON 10/21/2019 AT 05:16 PM EDT DISCLAIMER : THIS IS A VISIT SUMMARY EXTRACTED FROM THE [employer] CHART. IT IS NOT A COPY OF THE [employer] PROGRESS NOTE. OTTO
== END ==
LOC: M PAIN 12:15
PROVIDERS: ATTEND Anesthesiology
DX: M79.18 Myalgia, other site (principal)

== ENCOUNTER → 2019-11-27 | Outpatient (CLI) | payer MEDICARE, OTHER ==
[~2019-11-27] MED LIST changes: -BUPIVACAINE HCL 0.25% 10ML VIAL As Ordered ONE; -BUPIVACAINE HCL 0.25% 30ML VIAL As Ordered ONE; -NORCO, ANEXSIA 5/325MG TABLET (HYDROcodone/ACETAMINOPHEN) As Ordered ONE; -diazePAM 5 MG TAB As Ordered ONE
--- NOTE | 2019-12-11 05:34 | ECWPNPC ---
PATIENT NAME: LOY QUINN : 1960 GENDER: FEMALE VISIT DATE: 11/27/2019 DISCHARGE DATE: 11/27/19 1121 VISIT LOCKED DATE TIME: PHYSICIAN: CLEOPATRA COPELAND PHYSICIAN PAGER NO: [phone] RESOURCE: CLEOPATRA COPELAND REASON FOR APPOINTMENT 1. POST TPI BILAT LOW BACK HISTORY OF PRESENT ILLNESS GENERAL: HERE FOR POST PROCEDURE FOLLOW-UP. HAD TRIGGER POINT INJECTION WITHOUT STEROID-, BILATERAL LOW BACK. REPORTING MINIMAL IMPROVEMENT POST PROCEDURE. HAS BEEN IN EXTREME PAIN AND DESCRIBES MUSCLE SPASM TYPE PAIN ACROSS HER LOWER BACK. REPORTING POOR SLEEP DUE TO PAIN. REVIEWED MRI AND DISCUSSED MEDICATION AND TREATMENT PLAN. -. FALL RISK SCREENING: SCREENING :ONE FALL WITHOUT INJURY IN THE PAST YEAR PAIN SCREENING: PATIENT HAS A COMPLAINT OF ACUTE OR CHRONIC PAIN :YES 11/27/19 INTENSITY OF PAIN (SCALE OF 1 TO 10):8 WHAT DOES YOUR PAIN FEEL LIKE:ACHING, BURNING, INTERMITTENT, SHARP, STABBING, THROBBING, SHOOTING PAIN IS INCREASED BY: ANYTHING PAIN IS DECREASED BY: HEAT/ICE NURSING NOTE: -. PAIN CENTER INTAKE QUESTIONS: DO YOU HAVE A HISTORY OF MRSA? :NO DO YOU TAKE A BLOOD THINNERS? :NO DO YOU HAVE ANY BLEEDING DISORDERS? :NO ANY NEW NUMBNESS OR WEAKNESS IN YOUR LEGS OR ARMS? :NO ANY PACEMAKER,DEFIBRILLATOR, OR DORSAL COLUMN STIMULATOR? :NO DO YOU HAVE ANY RASHES OR OPEN SORES? :NO ARE YOU ALLERGIC TO IV DYE? :NO ARE YOU DIABETIC? :NO ANY NEW PROBLEMS WITH YOUR MEDICATIONS? :NO HAVE YOU RECEIVED A VACCINE IN THE PAST 30 DAYS? :NO DO YOU PLAN TO RECEIVE A VACCINE IN THE NEXT 21 DAYS? :NO DO YOU NEED ANY PRESCRIPTION? :NO DO YOU TAKE ANY IMMUNOSUPPRESSIVE MEDICATIONS? :NO IS THERE A CHANCE YOU COULD BE ? :NO ARE YOU BREAST FEEDING? :NO CURRENT MEDICATIONS TAKING CALCIUM CITRATE 1040 MG TABLET 1 TABLET ORALLY TWICE A DAY TAKING POTASSIUM 99 MG TABLET 1 TABLET ORALLY ONCE A DAY TAKING VITAMIN C 500 MG TABLET CHEWABLE 1 TABLET ORALLY ONCE A DAY TAKING BIOTIN 5 MG CAPSULE 2 TABLET ORALLY BEFORE BEDTIME TAKING VITAMIN B12 1000 TABLET 1 TABLET ORALLY ONCE A DAY TAKING MULTIVITAL TABLET 2 TAB(S) ORALLY ONCE A DAY TAKING MAGNESIUM OXIDE 500 MG TABLET 2 TABLETS ORALLY BEFORE BEDTIME TAKING PROBIOTIC - CAPSULE 1 TAB ORALLY DAILY TAKING FERROUS GLUCONATE 324 (38 FE) MG TABLET 2 TABS ORALLY DAILY TAKING TOPIRAMATE 100 MG TABLET TAKE ONE AND ONE HALF TABLETS BY MOUTH AT BEDTIME ORAL DAILY TAKING LEVOTHYROXINE SODIUM 137 MCG CAPSULE 2 TABLETS ORALLY DAILY TAKING DRISDOL 96843 UNIT CAPSULE 1 CAPSULE ORALLY TWICE A WEEK ON SUNDAY AND TAKING ONDANSETRON HCL 4 MG TABLET 1 TABLET ORALLY EVERY 8 HOURS NEEDED FOR MIGRAINE TAKING OXYBUTYNIN CHLORIDE ER 10 MG TABLET EXTENDED RELEASE 24 HOUR 1 TABLET ORALLY BEFORE BEDTIME TAKING VENTOLIN HFA 108 (90 BASE) MCG/ACT AEROSOL SOLUTION 2 PUFFS NEEDED INHALATION EVERY 4-6 HRS PRN SOB TAKING LYRICA 100 MG CAPSULE 1 CAPSULE ORALLY--CODE F BID TAKING WELLBUTRIN SR 150 MG TABLET EXTENDED RELEASE 12 HOUR 1 TABLET ORALLY TWICE A DAY TAKING HYDROXYZINE HCL 25 MG TABLET 1 -2 TABLETS ORALLY EVERY 8 HRS NEEDED FOR ITCHING, MDD=6 TAKING MAY HAVE - - 5-HTP 100 MG, 2 TABLETS ORALLY DAILY TAKING AMLACTIN 12 % LOTION 1 APPLICATION EXTERNALLY TWICE A DAY NEEDED TAKING VITAMIN D3 50 MCG (2000 UT) TABLET 3 TABLETS ORALLY ONCE A DAY TAKING FIBER - CAPSULE 2 CAPSULES ORALLY DAILY TAKING MELATONIN 5 MG TABLET 4 TABLETS IN THE EVENING ORALLY BEFORE BEDTIME TAKING OMEPRAZOLE 40 MG CAPSULE DELAYED RELEASE 1 CAPSULE ORALLY BEFORE BEDTIME TAKING SUMATRIPTAN SUCCINATE 50 MG TABLET 1 TABLET AT LEAST 2 HOURS BETWEEN DOSES NEEDED ORALLY TWICE A DAY NEEDED TAKING VITAMIN E 400 UNIT CAPSULE 2 CAPSULES ORALLY BEFORE BEDTIME TAKING ZINC 50 MG TABLET 2 TABLETS ORALLY ONCE A DAY TAKING MOMETASONE FUROATE 0.1 % OINTMENT 1 APPLICATION TO AFFECTED AREA EXTERNALLY TO RASH ON LEGS ONCE A DAY NEEDED MEDICATION LIST REVIEWED AND RECONCILED WITH THE PATIENT PAST MEDICAL HISTORY DEPRESSION WITH ANXIETY FIBROMYALGIA--WENT TO PAIN CLINIC FOR TPI LAST 05/13, REFERRED AGAIN 06/16 NERVE PAIN MIGRAINES HYPERLIPIDEMIA ASTHMA VINITA MORBID OBESITY ARTHRITIS KNEES, BACK COLLAGENOUS COLITIS ON BX 10/08 FAINTING SPELLS SINCE HEAD INJURY ON 02/27/17 JEFF EN Y GASTRIC BYPASS SURGERY 11/03/2013 ENLARGED THYROID--US 11/12, SIGNIF INC IN SIZE C/W PRIOR08/09; + THYROID AB; ENT REFERRAL 02/12-03/14,SHE WAS TX FOR REFLUX. HAD ESOPHAGRAM SHOWED MASS EFFECT ON ESOPHAGUS FROM THYROID; CT NECK SHOWED IMPINGEMENT OF THYROID ON ESOPAGUS. 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 1 SON(S) - HEALTHY. DENIES FAMILY HISTORY OF MM AND PANCREATIC CANCER. SOCIAL HISTORY GENERAL: TOBACCO USE ARE YOU A:FORMER SMOKER HOW LONG HAS IT BEEN SINCE YOU LAST SMOKED?> 10 YEARS LATEX QUESTIONNAIRE LATEX ALLERGY : HAVE YOU EVER DEVELOPED ANY TYPE OF REACTION AFTER HANDLING LATEX PRODUCTS SUCH RUBBER GLOVES, CONDOMS, DIAPHRAGMS, BALLOONS, SOCKS, OR UNDERWEAR?NO LATEX ALLERGY : HAVE YOU EVER DEVELOPED ANY TYPE OF REACTION DURING OR AFTER DENTAL APPOINTMENT, VAGINAL/RECTAL EXAMINATION, SURGICAL PROCEDURE, OR ANY OTHER EXPOSURE?NO DATE ASKED : 10/17/2019 LATEX RISK : HAVE YOU EVER HAD ANY DIFFICULTY BREATHING OR HIVES AFTER EATING OR HANDLING ANY FRUITS, OR VEGETABLES; SUCH KIWI, BANANAS, STONE FRUITS, OR CHESTNUTSNO LATEX RISK : DO YOU HAVE A PREVIOUS PERSONAL HISTORY OF MORE THAN NINE SURGERIES, SPINA BIFIDA, OR REPEATED CATHERIZATIONS? YES - PLEASE INDICATE : > 9 SURGERIES LATEX RISK : ARE YOU FREQUENTLY EXPOSED TO LATEX PRODUCTS IN YOUR OCCUPATION?NO ALCOHOL SCREENING DID YOU HAVE A DRINK CONTAINING ALCOHOL IN THE PAST YEAR?YES HOW OFTEN DID YOU HAVE SIX OR MORE DRINKS ON ONE OCCASION IN THE PAST YEAR?NEVER (0 POINTS) HOW MANY DRINKS DID YOU HAVE ON A TYPICAL DAY WHEN YOU WERE DRINKING IN THE PAST YEAR?1 OR 2 (0 POINTS) HOW OFTEN DID YOU HAVE A DRINK CONTAINING ALCOHOL IN THE PAST YEAR?MONTHLY OR LESS (1 POINT) POINTS1 INTERPRETATIONNEGATIVE RECREATIONAL DRUG USE DRUG USE?NO CAFFEINE CAFFEINE USE?YES ZOROASTRIANISM [id number] JEWISH LANGUAGE LANGUAGES SPOKEN:IRISH EDUCATION LEVEL OF EDUCATION:COLLEGE LEARNING BARRIERS / SPECIAL NEEDS CHANGE FROM LAST VISIT?NO BARRIERS TO LEARNING?NO HEARING IMPAIRED?NO VISION IMPAIRED?YES COGNITIVELY IMPAIRED?NO :CORRECTIVE LENSES READINESS TO LEARN?YES LEARNING PREFERENCES?NO LEARNING CAPABILITIES PRESENT?YES EMOTIONAL BARRIERS?NO SPECIAL DEVICES?YES :CANE, OTHER NEEDED DUE TO LACK OF LEFT KNEE CAP, ELECTRIC CART FOR SHOPPING NEEDED [employer] SENIOR OFFICER NEEDED?NO DOMESTIC VIOLENCE DO YOU FEEL SAFE IN YOUR ENVIRONMENT?YES OCCUPATION: DISABLED. DIET: NO CONCENTRATED SWEETS., CARBOHYDRATE CONTROLLED, NO ADDED SALT. EXERCISE: DAILY. MARITAL STATUS: . NEW PATIENT PAIN DIARY TODAY'S VISIT 10/17/2019 PATIENT DESCRIBES PAIN :ACHING, IT COMES AND GOES, SHARP, STABBING, TENDER, THROBBING, SORE, SHOOTING, OTHER "PINS AND NEEDLES" FROM 0-10, WHAT LEVEL IS YOUR PAIN TODAY?7 PRECIPITATING FACTORS ACITVITY, EXCESSIVE WALKING OR BENDING ALLEVIATING FACTORS LYING DOWN, ELEVATING LEGS, BIOFREEZE IMPACT ON FUNCTION LIMITS HER ON WHAT SHE IS ABLE TO DO PAIN CLINIC PFS, CLERGY, PUBLIC HEALTH REFERRALS PFS REFERRAL NEEDED?NO CLERGY REFERRAL NEEDED?NO PUBLIC HEALTH REFERRAL NEEDED?NO HAS THE PATIENT BEEN EDUCATED REGARDING HIS/HER PLAN OF CARE?YES HAS THE PATIENT BEEN EDUCATED REGARDING PAIN, THE RISK FOR PAIN, THE IMPORTANCE OF EFFECTIVE PAIN MANAGEMENT, AND THE PAIN ASSESSMENT PROCESS?YES ADVANCE DIRECTIVE ADVANCE DIRECTIVE DISCUSSED WITH PATIENT:YES PATIENT HAS HCP AND LIVING WILL - ON FILE HOSPITALIZATION/MAJOR DIAGNOSTIC PROCEDURE ABOVE REVIEW OF SYSTEMS CONSTITUTIONAL: ANY RECENT FEVER NO . CHILLS NO . WEIGHT CHANGE OF UNKNOWN REASONS NO . GASTROENTEROLOGY: NEW UNEXPLAINABLE CHANGES IN BOWEL CONTROL NO . CONSTIPATION NO . GENITOURINARY: ANY NEW CHANGE IN BLADDER CONTROL? NO . NEUROLOGY: NEW ONSET DIZZINESS OR NEUROLOGICAL CHANGES NOT MENTIONED NO . NEW NUMBNESS OR PAIN PATTERNS NOT MENTIONED AND PERTINENT TO TODAY'S VISIT NO . CARDIOLOGY: NEW CHEST PRESSURE NO . NEW CHEST PAIN NO . RESPIRATORY: UNEXPLAINABLE COUGH NO . NEW SHORTNESS OF BREATH NO . VITAL SIGNS WT 298.6 LBS, HT 63 IN, BMI 52.89 INDEX, BP 145/69 MM HG, HR 67 /MIN, RR 18 /MIN, TEMP 96.0 F, OXYGEN SAT % 98%, NA INITIALS SC 10:17. EXAMINATION GENERAL EXAMINATION: GENERAL AWAKE,ALERT ,PLEAASANT . PSYCH AFFECT NORMAL . LUNGS: LUNG SMITH ARE CLEAR TO AUSCULTATION BILATERALLY. GOOD MOVEMENT OF AIR . HEART: S1, S2 IN A REGULAR RATE AND RHYTHM. NO SIGNIFICANT MURMURS, RUBS OR GALLOPS NOTED . MUSCULOSKELETAL: MUSCLE STRENGTH TESTING 4/5 BILATERAL LOWER EXTREMITIES. LUMBAR:SPECIFIC POINT TENDERNESS NOTED OVER L4-5, L5-S1 LUMBAR FACETS. PAIN IS AGGRAVATED IN THIS REGION WITH FACET LOADING.. DIAGNOSTIC TESTS REVIEWED MRI L/S SPINE-2017. ASSESSMENTS OTHER OSTEOARTHRITIS OF SPINE, LUMBOSACRAL REGION - M47.897 (PRIMARY) TREATMENT OTHER OSTEOARTHRITIS OF SPINE, LUMBOSACRAL REGION INCREASE LYRICA CAPSULE, 200 MG, 1 CAPSULE, ORALLY, BID MDD2, 30 DAYS, 60, REFILLS 5 NOTES: INCREASE LYRICA TO 200 MG TWICE A DAY. SCHEDULE L4-5, L5-S1 BILATERAL LUMBAR THERAPEUTIC FACET BLOCK. OTHERS NOTES: FACET JOINT INJECTION MATERIAL WAS PRINTED. DISPOSITION & COMMUNICATION FOLLOW UP POST PROCEDURE (REASON: L4-5, L5-S1 BILATERAL LUMBAR THERAPEUTIC FACET BLOCK.) ELECTRONICALLY SIGNED BY AMANDA JOSE ON 12/10/2019 AT 09:24 AM EDT DISCLAIMER : THIS IS A VISIT SUMMARY EXTRACTED FROM THE [facility] CHART. IT IS NOT A COPY OF THE [facility] PROGRESS NOTE. MTDD
== END ==
LOC: M PAIN 10:00
PROVIDERS: ATTEND Nurse Practitioner Family
DX: M47.897 Other spondylosis, lumbosacral region (principal)

== ENCOUNTER → 2019-12-31 | Outpatient (REF) | payer MEDICARE, OTHER ==
[2020-01-29 22:47] LABS: MEAN CORPUSCULAR HEMOGLOBIN 27.4 pg (27.0-33.0); MEAN CORPUSCULAR HGB CONC 31.7 g/dl (32.0-36.5); MEAN CORPUSCULAR VOLUME 86.3 fl (80.0-96.0); PLATELET COUNT, AUTOMATED 247 10^3/uL (150-450); RED BLOOD COUNT 4.75 10^6/uL (4.00-5.40); WHITE BLOOD COUNT 6.3 10^3/uL (4.0-10.0)
[2020-02-14 17:38] LABS: BLOOD UREA NITROGEN 15 MG/DL (7-18); CALCIUM LEVEL 8.3 MG/DL (8.5-10.1); CARBON DIOXIDE LEVEL 26 MEQ/L (21-32); CHLORIDE LEVEL 110 MEQ/L (98-107); CREATININE FOR GFR 0.77 MG/DL (0.55-1.30); FREE T4 1.28 NG/DL (0.76-1.46); GLOMERULAR FILTRATION RATE > 60.0 (>51); GLUCOSE, FASTING 94 MG/DL (70-100); PHOSPHORUS LEVEL 3.8 MG/DL (2.5-4.9); POTASSIUM SERUM 4.5 MEQ/L (3.5-5.1); SODIUM LEVEL 138 MEQ/L (136-145); THYROGLOBULIN ANTIBODY < 15.0 U/ML (<60.0); THYROID STIMULATING HORMONE 0.267 uIU/ML (0.358-3.740); TOTAL 25(OH) VITAMIN D 45.4 NG/ML (30.0-100.0)
== END ==
LOC: M WUC 11:45
PROVIDERS: ATTEND Physician Assistant Medical
DX: E89.0 Postprocedural hypothyroidism (principal); E83.51 Hypocalcemia

== ENCOUNTER → 2020-03-24 | Outpatient (CLI) | payer MEDICARE, OTHER | LOC: M LABSMTC 10:10 | PROVIDERS: ATTEND Anesthesiology | DX: Z11.59 Encounter for screening for other viral diseases (principal); Z20.828 Contact with and (suspected) exposure to other viral communicable diseases | CPT/HCPCS: C9803; U0003 ==

== ENCOUNTER → 2020-03-30 | Outpatient (CLI) | payer MEDICARE, OTHER ==
[~2020-03-30] MED LIST changes: +BUPIVACAINE HCL 0.25% 30ML VIAL As Ordered ONE; +ISOVUE-M 300 61% 15ML VIAL As Ordered ONE; +LIDOCAINE 1% SDV 30ML VIAL As Ordered ONE; +NORCO, ANEXSIA 5/325MG TABLET (HYDROcodone/ACETAMINOPHEN) As Ordered ONE; +TRIAMCINOLONE ACETONIDE SUSP 40 MG/ML VIAL (J3301) As Ordered ONE; +diazePAM 5 MG TAB As Ordered ONE
--- NOTE | 2020-03-30 10:35 | REP ---
INDICATION: LUMBAR FACET BLOCK THERAPEUTIC. COMPARISON: None. TECHNIQUE: Two C-arm views lower lumbar spine performed. FINDINGS: Two needles are seen along the lower lumbar facet joints bilaterally. A small amount of contrast is injected. IMPRESSION: 33 seconds of fluoroscopy time was utilized. <Electronically signed by Maurice Riojas > 03/30/20 1039
--- NOTE | 2020-04-06 02:58 | ECWPNPC ---
PATIENT NAME: LOY QUINN : 1960 GENDER: FEMALE VISIT DATE: 03/30/2020 DISCHARGE DATE: 03/30/20 1043 VISIT LOCKED DATE TIME: PHYSICIAN: MAI SMILEY MD PHYSICIAN PAGER NO: ACTIVE RESOURCE: MAI SMILEY MD REASON FOR APPOINTMENT 1. L4-5, L5-S1 BILATERAL LUMBAR THERAPEUTIC FACET BLOCK HISTORY OF PRESENT ILLNESS GENERAL: -. FALL RISK SCREENING: SCREENING :ONE FALL WITHOUT INJURY IN THE PAST YEAR PAIN SCREENING: PATIENT HAS A COMPLAINT OF ACUTE OR CHRONIC PAIN :YES LOCATION OF PAIN:LOW BACK, LEG(S) INTENSITY OF PAIN (SCALE OF 1 TO 10):9 WHAT DOES YOUR PAIN FEEL LIKE:ACHING, THROBBING DURATION:CONTINOUS, CONSTANT PAIN IS INCREASED BY:ACTIVITIES PAIN IS DECREASED BY:USE OF PAIN MEDICATIONS TREATMENT/MEDICATIONS USED TO MANAGE PAIN:OTC PAIN RELIEVERS, NSAIDS, TOPICAL CORTICOSTEROIDS LEVEL OF RELIEF FROM PAIN TREATMENTS IN THE PAST:25% PAIN HAS INTERFERED WITH THE FOLLOWING:WALKING ABILITY, HOUSEWORK, SLEEP, TRANSPORTATION NURSING NOTE: -. PAIN CENTER INTAKE QUESTIONS: DO YOU HAVE A HISTORY OF MRSA? :NO DO YOU TAKE A BLOOD THINNERS? :NO DO YOU HAVE ANY BLEEDING DISORDERS? :NO ANY NEW NUMBNESS OR WEAKNESS IN YOUR LEGS OR ARMS? :NO ANY PACEMAKER,DEFIBRILLATOR, OR DORSAL COLUMN STIMULATOR? :NO DO YOU HAVE ANY RASHES OR OPEN SORES? :NO ARE YOU ALLERGIC TO IV DYE? :NO ARE YOU DIABETIC? :NO ANY NEW PROBLEMS WITH YOUR MEDICATIONS? :YES LYRICA DOESN'T HELP HAVE YOU RECEIVED A VACCINE IN THE PAST 30 DAYS? :NO DO YOU PLAN TO RECEIVE A VACCINE IN THE NEXT 21 DAYS? :YES IF SO WHAT VACCINE AND WHEN? PATIENT EDUCATED TO WAIT 21 DAYS POST PROCEDURE TO OBTAIN FLU VACCINE. DO YOU TAKE ANY IMMUNOSUPPRESSIVE MEDICATIONS? :NO ANY HISTORY OF SEIZURES? :NO ANY HISTORY OF CARDIAC ISSUES OR EVENTS? :NO DO YOU HAVE SLEEP APNEA? :YES DO YOU WEAR A CPAP?YES ANY RECENT HEAD INJURY? :NO DO YOU HAVE ANY NEW INFECTIONS? :NO IS THERE A CHANCE YOU COULD BE ? :NO ARE YOU BREAST FEEDING? :NO WHEN DID YOU LAST EAT? : 03/29/20 2300 WHEN DID YOU LAST DRINK? : 03/30/20 0600 WHAT DID YOU LAST DRINK? : WATER NAME OF PERSON DRIVING YOU HOME? : CORBIN () DO YOU HAVE ANY OTHER QUESTIONS OR CONCERNS? : NO CURRENT MEDICATIONS TAKING CALCIUM CITRATE 1040 MG TABLET 1 TABLET ORALLY TWICE A DAY, NOTES: 03/29 930 TAKING POTASSIUM 99 MG TABLET 1 TABLET ORALLY ONCE A DAY, NOTES: 03/29 2200 TAKING VITAMIN C 500 MG TABLET CHEWABLE 1 TABLET ORALLY ONCE A DAY, NOTES: 03/29 930 TAKING BIOTIN 5 MG CAPSULE 2 TABLET ORALLY ONCE A DAY, NOTES: 03/29 930 TAKING VITAMIN B12 1000 TABLET 1 TABLET ORALLY ONCE A DAY, NOTES: 03/29 930 TAKING MULTIVITAL TABLET 2 TAB(S) ORALLY ONCE A DAY, NOTES: 03/29 930 TAKING MAGNESIUM OXIDE 500 MG TABLET 2 TABLETS ORALLY BEFORE BEDTIME, NOTES: 03/29 2200 TAKING PROBIOTIC - CAPSULE 1 TAB ORALLY DAILY, NOTES: 03/29 2200 TAKING FERROUS GLUCONATE 324 (38 FE) MG TABLET 2 TABS ORALLY DAILY, NOTES: 03/29 930 TAKING TOPIRAMATE 100 MG TABLET TAKE ONE AND ONE HALF TABLETS BY MOUTH AT BEDTIME ORAL DAILY, NOTES: 03/29 930 TAKING LEVOTHYROXINE SODIUM 137 MCG CAPSULE 2 TABLETS ORALLY DAILY, NOTES: 03/29/20 0600 TAKING DRISDOL 40672 UNIT CAPSULE 1 CAPSULE ORALLY TWICE A WEEK ON SUNDAY AND , NOTES: 03/28/20 TAKING ONDANSETRON HCL 4 MG TABLET 1 TABLET ORALLY EVERY 8 HOURS NEEDED FOR MIGRAINE, NOTES: 2 WEEKS AGO TAKING MAY HAVE - - 5-HTP 100 MG, 2 TABLETS ORALLY DAILY, NOTES: 2 WEEKS AGO TAKING AMLACTIN 12 % LOTION 1 APPLICATION EXTERNALLY TWICE A DAY NEEDED, NOTES: 03/29 2200 TAKING VITAMIN D3 50 MCG (2000 UT) TABLET 3 TABLETS ORALLY ONCE A DAY, NOTES: 03/29 2200 TAKING FIBER - CAPSULE 2 CAPSULES ORALLY DAILY, NOTES: 03/29 930 TAKING MELATONIN 5 MG TABLET 4 TABLETS IN THE EVENING ORALLY BEFORE BEDTIME, NOTES: 03/28 TAKING OMEPRAZOLE 40 MG CAPSULE DELAYED RELEASE 1 CAPSULE ORALLY BEFORE BEDTIME, NOTES: 03/29 2200 TAKING SUMATRIPTAN SUCCINATE 50 MG TABLET 1 TABLET AT LEAST 2 HOURS BETWEEN DOSES NEEDED ORALLY TWICE A DAY NEEDED, NOTES: LAST SUNDAY TAKING VITAMIN E 400 UNIT CAPSULE 2 CAPSULES ORALLY BEFORE BEDTIME, NOTES: 03/29 2200 TAKING ZINC 50 MG TABLET 2 TABLETS ORALLY ONCE A DAY, NOTES: 03/29 2200 TAKING MOMETASONE FUROATE 0.1 % OINTMENT 1 APPLICATION TO AFFECTED AREA EXTERNALLY TO RASH ON LEGS ONCE A DAY NEEDED, NOTES: NOT RECENTLY TAKING LYRICA 200 MG CAPSULE 1 CAPSULE ORALLY BID MDD2, NOTES: 03/29 2200 TAKING WELLBUTRIN SR 150 MG TABLET EXTENDED RELEASE 12 HOUR 1 TABLET ORALLY TWICE A DAY, NOTES: 03/29 930 TAKING HYDROXYZINE HCL 25 MG TABLET 1 -2 TABLETS ORALLY EVERY 8 HRS NEEDED FOR ITCHING, MDD=6, NOTES: ABOUT A WEEK AGO TAKING VENTOLIN HFA 108 (90 BASE) MCG/ACT AEROSOL SOLUTION 2 PUFFS NEEDED INHALATION EVERY 4-6 HRS PRN SOB, NOTES: 03/27/20 TAKING OXYBUTYNIN CHLORIDE ER 10 MG TABLET EXTENDED RELEASE 24 HOUR 1 TABLET ORALLY BEFORE BEDTIME, NOTES: 03/29 2200 MEDICATION LIST REVIEWED AND RECONCILED WITH THE PATIENT PAST MEDICAL HISTORY DEPRESSION WITH ANXIETY FIBROMYALGIA--WENT TO PAIN CLINIC FOR TPI LAST 05/13, REFERRED AGAIN 06/16 NERVE PAIN MIGRAINES HYPERLIPIDEMIA ASTHMA VINITA MORBID OBESITY ARTHRITIS KNEES, BACK COLLAGENOUS COLITIS ON BX 10/08 FAINTING SPELLS SINCE HEAD INJURY ON 02/27/17 JEFF EN Y GASTRIC BYPASS SURGERY 11/03/2013 ENLARGED THYROID--US 11/12, [employer] IN SIZE C/W PRIOR08/09; + THYROID AB; ENT REFERRAL 02/12-03/14,SHE WAS TX FOR REFLUX. HAD ESOPHAGRAM SHOWED MASS EFFECT ON ESOPHAGUS FROM THYROID; CT NECK SHOWED IMPINGEMENT OF THYROID ON ESOPAGUS. 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 1 SON(S) - HEALTHY. DENIES FAMILY HISTORY OF MM AND PANCREATIC CANCER. SOCIAL HISTORY GENERAL: TOBACCO USE ARE YOU A:FORMER SMOKER HOW LONG HAS IT BEEN SINCE YOU LAST SMOKED?> 10 YEARS LATEX QUESTIONNAIRE LATEX ALLERGY : HAVE YOU EVER DEVELOPED ANY TYPE OF REACTION AFTER HANDLING LATEX PRODUCTS SUCH RUBBER GLOVES, CONDOMS, DIAPHRAGMS, BALLOONS, SOCKS, OR UNDERWEAR?NO LATEX ALLERGY : HAVE YOU EVER DEVELOPED ANY TYPE OF REACTION DURING OR AFTER DENTAL APPOINTMENT, VAGINAL/RECTAL EXAMINATION, SURGICAL PROCEDURE, OR ANY OTHER EXPOSURE?NO LATEX RISK : HAVE YOU EVER HAD ANY DIFFICULTY BREATHING OR HIVES AFTER EATING OR HANDLING ANY FRUITS, OR VEGETABLES; SUCH KIWI, BANANAS, STONE FRUITS, OR CHESTNUTSNO LATEX RISK : DO YOU HAVE A PREVIOUS PERSONAL HISTORY OF MORE THAN NINE SURGERIES, SPINA BIFIDA, OR REPEATED CATHERIZATIONS? YES - PLEASE INDICATE : > 9 SURGERIES LATEX RISK : ARE YOU FREQUENTLY EXPOSED TO LATEX PRODUCTS IN YOUR OCCUPATION?NO DATE ASKED : 03/30/2020 ALCOHOL SCREENING DID YOU HAVE A DRINK CONTAINING ALCOHOL IN THE PAST YEAR?YES HOW OFTEN DID YOU HAVE A DRINK CONTAINING ALCOHOL IN THE PAST YEAR?MONTHLY OR LESS (1 POINT) HOW MANY DRINKS DID YOU HAVE ON A TYPICAL DAY WHEN YOU WERE DRINKING IN THE PAST YEAR?1 OR 2 (0 POINTS) HOW OFTEN DID YOU HAVE SIX OR MORE DRINKS ON ONE OCCASION IN THE PAST YEAR?NEVER (0 POINTS) POINTS1 INTERPRETATIONNEGATIVE RECREATIONAL DRUG USE DRUG USE?NO CAFFEINE CAFFEINE USE?YES MORAVIAN [id number] NONDENOMINATIONAL LANGUAGE LANGUAGES SPOKEN:MONTSERRATIAN EDUCATION LEVEL OF EDUCATION:COLLEGE LEARNING BARRIERS / SPECIAL NEEDS CHANGE FROM LAST VISIT?NO BARRIERS TO LEARNING?NO HEARING IMPAIRED?NO VISION IMPAIRED?YES COGNITIVELY IMPAIRED?NO :CORRECTIVE LENSES READINESS TO LEARN?YES LEARNING PREFERENCES?NO LEARNING CAPABILITIES PRESENT?YES EMOTIONAL BARRIERS?NO SPECIAL DEVICES?YES :CANE, OTHER NEEDED DUE TO LACK OF LEFT KNEE CAP, ELECTRIC CART FOR SHOPPING NEEDED FAMILY WORKER NEEDED?NO DOMESTIC VIOLENCE DO YOU FEEL SAFE IN YOUR ENVIRONMENT?YES OCCUPATION: DISABLED. DIET: NO CONCENTRATED SWEETS., CARBOHYDRATE CONTROLLED, NO ADDED SALT. EXERCISE: DAILY. MARITAL STATUS: . TODAY'S VISIT 10/17/2019, PATIENT DESCRIBES PAIN : ACHING, IT COMES AND GOES, SHARP, STABBING, TENDER, THROBBING, SORE, SHOOTING, OTHER "PINS AND NEEDLES", FROM 0-10, WHAT LEVEL IS YOUR PAIN TODAY? 7, PRECIPITATING FACTORS ACITVITY, EXCESSIVE WALKING OR BENDING, ALLEVIATING FACTORS LYING DOWN, ELEVATING LEGS, BIOFREEZE, IMPACT ON FUNCTION LIMITS HER ON WHAT SHE IS ABLE TO DO. PAIN CLINIC PFS, CLERGY, PUBLIC HEALTH REFERRALS PFS REFERRAL NEEDED?NO CLERGY REFERRAL NEEDED?NO PUBLIC HEALTH REFERRAL NEEDED?NO HAS THE PATIENT BEEN EDUCATED REGARDING HIS/HER PLAN OF CARE?YES HAS THE PATIENT BEEN EDUCATED REGARDING PAIN, THE RISK FOR PAIN, THE IMPORTANCE OF EFFECTIVE PAIN MANAGEMENT, AND THE PAIN ASSESSMENT PROCESS?YES ADVANCE DIRECTIVE ADVANCE DIRECTIVE DISCUSSED WITH PATIENT:YES PATIENT HAS HCP AND LIVING WILL - ON FILE HOSPITALIZATION/MAJOR DIAGNOSTIC PROCEDURE ABOVE VITAL SIGNS WT 313 LBS, HT 63 IN, BMI 55.44 INDEX, BP 141/83 MM HG, HR 74 /MIN, RR 18 /MIN, TEMP 97.4 F, OXYGEN SAT % 99%, SAFE IN ENV? (Y/N) YES, NA INITIALS SC 08:57, REVIEWED BY: COLT RAMIREZ DRUM CLEANER. EXAMINATION GENERAL EXAMINATION: THE PATIENT IS ALERT, ORIENTED TIMES THREE AND COOPERATIVE. HEART SHOWS REGULAR RHYTHM, NO MURMURS AND NO GALLOPS. LUNGS ARE CLEAR TO AUSCULTATION. ASSESSMENTS SPONDYLOSIS WITHOUT MYELOPATHY OR RADICULOPATHY, LUMBAR REGION - M47.816 (PRIMARY) SPONDYLOSIS WITHOUT MYELOPATHY OR RADICULOPATHY, LUMBOSACRAL REGION - M47.817 TREATMENT SPONDYLOSIS WITHOUT MYELOPATHY OR RADICULOPATHY, LUMBAR REGION SMC FACET BLOCK (PAIN)[id number] SPONDYLOSIS WITHOUT MYELOPATHY OR RADICULOPATHY, LUMBOSACRAL REGION SMC FACET BLOCK (PAIN)[id number] MEDICATION: NORCO TABLET 5MG/325MG ORALLY (HYDROCODONE/ACETAMINOPHEN)MARIELENA KITCHEN 03/30/2020 9:29:18 AM > VERIFIED DIMITRIS RAMIREZ 03/30/2020 9:31:17 AM > LOT: [id number] EXP: 08/16. DIMITRIS RAMIREZ 03/30/2020 9:54:29 AM > ADMINISTEED AT 0932 03/29/20. MEDICATION: VALIUM TAB 5MG ORALLY (DIAZEPAM)MARIELENA KITCHEN 03/30/2020 9:29:38 AM > VERIFIED DIMITRIS RAMIREZ 03/30/2020 9:31:45 AM > LOT: [id number] EXP: 09/15. DIMITRIS RAMIREZ 03/30/2020 9:54:44 AM > ADMINISTEED AT 0932 03/29/20. OTHERS NOTES: 03/29/20 SHEA VASQUEZ DRUM CLEANER. PROCEDURES PAIN NURSING RECORD PRE-PROCEDURE IV SITE N/A, PRE-PROCEDURE ORAL MEDICATIONS YES SEE TREATMENT SECTION PROCEDURE IN ROOM 0938, PHYSICIAN IN ROOM 1012, START 1017, FINISH 1024, PHYSICIAN OUT OF ROOM 1026, OUT OF ROOM 1032, STEROID KENALOG, O2 RA, ECG NORMAL SINUS, PATIENT SHIELDED YES, SAFETY STRAP YES, PREP CHLOROPREP MKim RAMIREZ DRUM CLEANER, IV INFUSED N/A, DRESSING TEGADERM DR. SMILEY LOC: DIMITRIS RAMIREZ 03/30/2020 9:41:06 AM > 1. ALERT, ORIENTED RESP: DIMITRIS RAMIREZ 03/30/2020 9:41:06 AM > 1. REGULAR, NO DYSPNEA COLOR: DIMITRIS RAMIREZ 03/30/2020 9:41:06 AM > 1. PINK SKIN: DIMITRIS RAMIREZ 03/30/2020 9:41:06 AM > 1. WARM, DRY POSITION: DIMITRIS RAMIREZ 03/30/2020 9:41:06 AM > 1. PRONE VITALS: DIMITRIS RAMIREZ 03/30/2020 9:41:06 AM > 148/71, 64, 99% RA, 18. DIMITRIS RAMIREZ 03/30/2020 9:45:03 AM > 150/72, 61, 99% RA, 18. DIMITRIS RAMIREZ 03/30/2020 10:00:20 AM > 167/101, 66, 100% RA, 18. DIMITRIS RAMIREZ 03/30/2020 10:01:57 AM > 158/89, 68, 100% RA, 18. DIMITRIS RAMIREZ 03/30/2020 10:17:50 AM > 163/88, 59, 100% RA, 18. DIMITRIS RAMIREZ 03/30/2020 10:25:09 AM > 164/90, 58, 98% RA, 18. DIMITRIS RAMIREZ 03/30/2020 10:39:34 AM > POST PROCEDURE 150/81, 63, 97%, 18. NOTES PROVIDER AWARE OF GASTRIC BYPASS SURGERY IN 2013, OKAY TO PROCEED WITH PRESEDATE, PROVIDER STATES PREVIOUSLY GIVEN FOR ANOTHER PROCEDURE WITHOUT COMPLICATIONS. DISCHARGE: POST PAIN 10/04, DRESSING SITE DRY AND INTACT, IV N/A, GAIT STEADY USES CANE AT BASELINE, TEACHING COMPLETED, PATIENT ACKNOWLEDGES UNDERSTANDING YES, PATIENT DISCHARGED AT 1042 PN LUMBAR FACET BLOCK THERAPEUTIC PRE PROCEDURE DIAGNOSIS LUMBAR SPONDYLOSIS, LUMBOSACRAL SPONDYLOSIS POST PROCEDURE DIAGNOSIS LUMBAR SPONDYLOSIS, LUMBOSACRAL SPONDYLOSIS PROCEDURE BILATERAL L4-L5 AND BILATERAL L5-S1 LUMBAR FACET THERAPEUTIC BLOCK SURGEON DR. MAI SMILEY SPORTS ATTORNEY NONE ANESTHESIA LOCAL PRE PROCEDURE NOTE THE PATIENT HAS A HISTORY OF CHRONIC LOW BACK PAIN. I EVALUATED THE PATIENT AND REVIEWED THE CHART. I WENT OVER THE RISKS, ALTERNATIVES, AND BENEFITS ASSOCIATED WITH THIS PROCEDURE. I DISCUSSED THAT THE USE OF STEROIDS MAY CONTRIBUTE TO IMMUNOSUPPRESSION OF THE PATIENT'S BODY AGAINST INFECTIONS SUCH COVID-19. THE PATIENT IS AWARE OF THE POTENTIAL COMPLICATIONS ASSOCIATED WITH THIS VIRUS, INCLUDING, BUT NOT LIMITED TO, . THE PATIENT WOULD LIKE TO PROCEED AND GIVES CONSENT TO PERFORM THE PROCEDURE. THE PATIENT DENIES UNEXPLAINABLE WEIGHT LOSS, FEVER, CHILLS, OR NEW CHANGES IN URINARY OR BOWEL CONTROL. THE PATIENT IS COVID-19 NEGATIVE DESCRIPTION OF PROCEDURE THE PATIENT WAS BROUGHT TO THE PROCEDURE ROOM AND PLACED IN THE PRONE POSITION. THE LUMBOSACRAL AREA WAS CLEANED WITH CHLORAPREP SOLUTION AND DRAPED ASEPTICALLY. THE PROCEDURE WAS DONE UNDER STERILE CONDITIONS. A TIMEOUT WAS PERFORMED WHERE LATERALITY AND THE SITE OF THE PROCEDURE WERE CHECKED AND CONFIRMED WITH EVERYONE IN THE ROOM. UNDER FLUOROSCOPIC GUIDANCE, THE TARGET POINT WAS SELECTED AT THE RIGHT AND LEFT L4-L5 AND RIGHT AND LEFT L5-S1 FACET JOINTS. TARGET POINT WAS SELECTED AFTER LATERAL ROTATION AND TILT OF THE MAGNIFIER OF THE C-ARM. I CONFIRMED AGAIN WITH EVERYONE IN THE ROOM THE LATERALITY OF THE TARGET AT 1017 ON THE LEFT SIDE AND 1021 ON THE RIGHT. LIDOCAINE 0.5% WAS USED TO NUMB THE SKIN AND THE SUBCUTANEOUS TISSUE BELOW IT. SPINAL NEEDLES, 22-GAUGE, WERE ADVANCED UNDER FLUOROSCOPIC GUIDANCE AND FOLLOWING PATIENT FEEDBACK UNTIL THE TARGETS WERE TOUCHED. THE POSITION OF THE NEEDLES WAS VERIFIED WITH AP AND LATERAL VIEWS. AFTER PROPER POSITION OF THE NEEDLES WAS ACHIEVED, ISOVUE-M DYE 30%, 0.1 ML, WAS INJECTED SHOWING ADEQUATE SPREAD OF THE DYE. KENALOG 20 MG WAS INJECTED AT EACH SITE. THEN, A SOLUTION OF 1.0 ML OF BUPIVACAINE 0.125% OF WAS USED TO FLUSH EACH SITE. THE MEDICATION WAS VERIFIED WITH THE NURSE. THERE WAS NO EVIDENCE OF BLOOD, PARESTHESIA OR CEREBROSPINAL FLUID DURING THE PROCEDURE. THE PATIENT WAS SENT TO THE RECOVERY ROOM. THE PATIENT WAS MOVING THE EXTREMITIES AND DOING WELL. THERE WERE NO COMPLICATIONS DURING THE PROCEDURE. ESTIMATED BLOOD LOSS WAS LESS THAN 5 ML. FLUOROSCOPY TIME WAS 34 SECONDS POST PROCEDURE NOTE THE PATIENT WILL BE SEEN IN A FOLLOW UP IN THE NEXT FEW WEEKS. I AM LOOKING FOR LONG LASTING RELIEF FOR THE PATIENT WITH THIS INTERVENTION. INSTRUCTIONS WERE GIVEN, QUESTIONS WERE ANSWERED, AND THE PATIENT EXPRESSED UNDERSTANDING AND AGREES WITH THE PLAN. I, FE FRENCH, DOCUMENTED THE ABOVE INFORMATION ACTING A SCRIBE FOR DR. SMILEY. I HAVE REVIEWED THE ABOVE DOCUMENT, WRITTEN BY FE FRENCH, LEVEL VIAL SETTER, AND I VERIFY THAT IT IS ACCURATE PROCEDURE CODES 29302 INJ PARAVERT F JNT L/S 1 LEV, MODIFIERS: 50 [id number] INJ PARAVERT F JNT L/S 2 LEV, MODIFIERS: 50 DISPOSITION & COMMUNICATION FOLLOW UP FOLLOW UP WITH WATCH AND CLOCK REPAIRER (REASON: POST BILATERAL FACET BLOCK L4-L5, L5-S1) ELECTRONICALLY SIGNED BY MAI SMILEY MD, MD ON 04/05/2020 AT 03:33 PM EST DISCLAIMER : THIS IS A VISIT SUMMARY EXTRACTED FROM THE [employer] CHART. IT IS NOT A COPY OF THE [employer] PROGRESS NOTE. MTDD
== END ==
LOC: M PAIN 09:00
PROVIDERS: ATTEND Anesthesiology
DX: M47.816 Spondylosis without myelopathy or radiculopathy, lumbar region (principal); M47.817 Spondylosis without myelopathy or radiculopathy, lumbosacral region; F34.1 Dysthymic disorder; M79.7 Fibromyalgia; G43.909 Migraine, unspecified, not intractable, without status migrainosus; E78.5 Hyperlipidemia, unspecified; J45.909 Unspecified asthma, uncomplicated; G47.33 Obstructive sleep apnea (adult) (pediatric); E66.01 Morbid (severe) obesity due to excess calories; E55.9 Vitamin D deficiency, unspecified; Z98.84 Bariatric surgery status; Z87.891 Personal history of nicotine dependence; Z79.899 Other long term (current) drug therapy; Z88.0 Allergy status to penicillin
CPT/HCPCS: 64493; 64494; J3301; Q9967

== ENCOUNTER → 2020-04-13 | Outpatient (CLI) | payer MEDICARE, OTHER ==
[~2020-04-13] MED LIST changes: -BUPIVACAINE HCL 0.25% 30ML VIAL As Ordered ONE; -ISOVUE-M 300 61% 15ML VIAL As Ordered ONE; -LIDOCAINE 1% SDV 30ML VIAL As Ordered ONE; -NORCO, ANEXSIA 5/325MG TABLET (HYDROcodone/ACETAMINOPHEN) As Ordered ONE; -TRIAMCINOLONE ACETONIDE SUSP 40 MG/ML VIAL (J3301) As Ordered ONE; -diazePAM 5 MG TAB As Ordered ONE
--- NOTE | 2020-04-16 01:40 | ECWPNPC ---
PATIENT NAME: LOY QUINN : 1960 GENDER: FEMALE VISIT DATE: 04/13/2020 DISCHARGE DATE: 04/13/20 1428 VISIT LOCKED DATE TIME: PHYSICIAN: CLEOPATRA COPELAND PHYSICIAN PAGER NO: ACTIVE RESOURCE: CLEOPATRA COPELAND REASON FOR APPOINTMENT 1. POST BILATERAL FACET BLOCK L4-L5, L5-S1 HISTORY OF PRESENT ILLNESS DEPRESSION SCREENING: PHQ-9 LITTLE INTEREST OR PLEASURE IN DOING THINGSNEARLY EVERY DAY FEELING DOWN, DEPRESSED, OR HOPELESSNEARLY EVERY DAY TROUBLE FALLING OR STAYING ASLEEP, OR SLEEPING TOO MUCHNEARLY EVERY DAY FEELING TIRED OR HAVING LITTLE ENERGYNEARLY EVERY DAY POOR APPETITE OR OVEREATING NEARLY EVERY DAY FEELING BAD ABOUT YOURSELF-OR THAT YOU ARE A FAILURE OR HAVE LET YOURSELF OR YOUR FAMILY DOWN NEARLY EVERY DAY TROUBLE CONCENTRATING ON THINGS, SUCH READING THE NEWSPAPER OR WATCHING TELEVISION NEARLY EVERY DAY MOVING OR SPEAKING SO SLOWLY THAT OTHER PEOPLE COULD HAVE NOTICED. OR THE OPPOSITE- BEING SO FIDGETY OR RESTLESS THAT YOU HAVE BEEN MOVING AROUND A LOT MORE THAN USUALNEARLY EVERY DAY THOUGHTS THAT YOU WOULD BE BETTER OFF , OR OF HURTING YOURSELF IN SOME WAY?MORE THAN HALF THE DAYS(CONSIDER SUICIDE ASSESSMENT RISK) TOTAL SCORE:26 INTERPRETATIONSEVERE DEPRESSION PHQ-2 (2015 EDITION) LITTLE INTEREST OR PLEASURE IN DOING THINGS?SEVERAL DAYS FEELING DOWN, DEPRESSED, OR HOPELESS?NEARLY EVERY DAY TOTAL SCORE4 GENERAL: HERE FOR POST PROCEDURE FOLLOW-UP. HAD BILATERAL L4-5, L5-S1 LUMBAR FACET BLOCK THERAPEUTIC ON 03/30/2020. REPORTING MARKED REDUCTION IN PAIN THAT CONTINUES TODAY. RATING PAIN LEVEL A 4/10 VAS. REPORTS INCREASED ANXIETY AND DEPRESSION OVER THE PAST FEW MONTHS. THIS IS DUE TO FEELING HELPLESS . A LOT OF THIS IS DUE TO COVID 19 ISOLATION WELL LOSS OF HER PARENTS RECENTLY. DENIES SUICIDAL OR HOMICIDAL IDEATIONS. DR. MELARA FOLLOWS HER AND IS AWARE OF HER DEPRESSION AND MEDICATES NEEDED. -. FALL RISK SCREENING: SCREENING :ONE FALL WITHOUT INJURY IN THE PAST YEAR PAIN SCREENING: PATIENT HAS A COMPLAINT OF ACUTE OR CHRONIC PAIN :YES LOCATION OF PAIN:LOW BACK, LEG(S) INTENSITY OF PAIN (SCALE OF 1 TO 10):5 WHAT DOES YOUR PAIN FEEL LIKE:ACHING DURATION:CONTINOUS, CONSTANT PAIN IS INCREASED BY:ACTIVITIES PAIN IS DECREASED BY:USE OF PAIN MEDICATIONS TREATMENT/MEDICATIONS USED TO MANAGE PAIN:OPIOIDS LEVEL OF RELIEF FROM PAIN TREATMENTS IN THE PAST:50% PAIN HAS INTERFERED WITH THE FOLLOWING:BATHING/DRESSING, WALKING ABILITY, HOUSEWORK, SLEEP, TRANSPORTATION, TOILETING NURSING NOTE: -. PAIN CENTER INTAKE QUESTIONS: DO YOU HAVE A HISTORY OF MRSA? :NO DO YOU TAKE A BLOOD THINNERS? :NO DO YOU HAVE ANY BLEEDING DISORDERS? :NO ANY NEW NUMBNESS OR WEAKNESS IN YOUR LEGS OR ARMS? :YES TINGLING IN FINGERS ANY PACEMAKER,DEFIBRILLATOR, OR DORSAL COLUMN STIMULATOR? :NO DO YOU HAVE ANY RASHES OR OPEN SORES? :NO ARE YOU ALLERGIC TO IV DYE? :NO ARE YOU DIABETIC? :NO ANY NEW PROBLEMS WITH YOUR MEDICATIONS? :NO HAVE YOU RECEIVED A VACCINE IN THE PAST 30 DAYS? :NO DO YOU PLAN TO RECEIVE A VACCINE IN THE NEXT 21 DAYS? :YES IF SO WHAT VACCINE AND WHEN? FLU VACCINE DO YOU NEED ANY PRESCRIPTION? :NO DO YOU TAKE ANY IMMUNOSUPPRESSIVE MEDICATIONS? :NO IS THERE A CHANCE YOU COULD BE ? :NO ARE YOU BREAST FEEDING? :NO CURRENT MEDICATIONS TAKING CALCIUM CITRATE 1040 MG TABLET 1 TABLET ORALLY TWICE A DAY TAKING POTASSIUM 99 MG TABLET 1 TABLET ORALLY ONCE A DAY TAKING VITAMIN C 500 MG TABLET CHEWABLE 1 TABLET ORALLY ONCE A DAY TAKING BIOTIN 5 MG CAPSULE 2 TABLET ORALLY ONCE A DAY TAKING VITAMIN B12 1000 TABLET 1 TABLET ORALLY ONCE A DAY TAKING MULTIVITAL TABLET 2 TAB(S) ORALLY ONCE A DAY TAKING MAGNESIUM OXIDE 500 MG TABLET 2 TABLETS ORALLY BEFORE BEDTIME TAKING PROBIOTIC - CAPSULE 1 TAB ORALLY DAILY TAKING FERROUS GLUCONATE 324 (38 FE) MG TABLET 2 TABS ORALLY DAILY TAKING TOPIRAMATE 100 MG TABLET TAKE ONE AND ONE HALF TABLETS BY MOUTH AT BEDTIME ORAL DAILY TAKING LEVOTHYROXINE SODIUM 137 MCG CAPSULE 2 TABLETS ORALLY DAILY TAKING DRISDOL 14577 UNIT CAPSULE 1 CAPSULE ORALLY TWICE A WEEK ON SUNDAY AND TAKING ONDANSETRON HCL 4 MG TABLET 1 TABLET ORALLY EVERY 8 HOURS NEEDED FOR MIGRAINE TAKING MAY HAVE - - 5-HTP 100 MG, 2 TABLETS ORALLY DAILY TAKING AMLACTIN 12 % LOTION 1 APPLICATION EXTERNALLY TWICE A DAY NEEDED TAKING VITAMIN D3 50 MCG (2000 UT) TABLET 3 TABLETS ORALLY ONCE A DAY TAKING FIBER - CAPSULE 2 CAPSULES ORALLY DAILY TAKING MELATONIN 5 MG TABLET 4 TABLETS IN THE EVENING ORALLY BEFORE BEDTIME TAKING OMEPRAZOLE 40 MG CAPSULE DELAYED RELEASE 1 CAPSULE ORALLY BEFORE BEDTIME TAKING SUMATRIPTAN SUCCINATE 50 MG TABLET 1 TABLET AT LEAST 2 HOURS BETWEEN DOSES NEEDED ORALLY TWICE A DAY NEEDED TAKING VITAMIN E 400 UNIT CAPSULE 2 CAPSULES ORALLY BEFORE BEDTIME TAKING ZINC 50 MG TABLET 2 TABLETS ORALLY ONCE A DAY TAKING MOMETASONE FUROATE 0.1 % OINTMENT 1 APPLICATION TO AFFECTED AREA EXTERNALLY TO RASH ON LEGS ONCE A DAY NEEDED TAKING LYRICA 200 MG CAPSULE 1 CAPSULE ORALLY BID MDD2 TAKING WELLBUTRIN SR 150 MG TABLET EXTENDED RELEASE 12 HOUR 1 TABLET ORALLY TWICE A DAY TAKING HYDROXYZINE HCL 25 MG TABLET 1 -2 TABLETS ORALLY EVERY 8 HRS NEEDED FOR ITCHING, MDD=6 TAKING VENTOLIN HFA 108 (90 BASE) MCG/ACT AEROSOL SOLUTION 2 PUFFS NEEDED INHALATION EVERY 4-6 HRS PRN SOB TAKING OXYBUTYNIN CHLORIDE ER 10 MG TABLET EXTENDED RELEASE 24 HOUR 1 TABLET ORALLY BEFORE BEDTIME MEDICATION LIST REVIEWED AND RECONCILED WITH THE PATIENT PAST MEDICAL HISTORY DEPRESSION WITH ANXIETY FIBROMYALGIA--WENT TO PAIN CLINIC FOR TPI LAST 05/13, REFERRED AGAIN 06/16 NERVE PAIN MIGRAINES HYPERLIPIDEMIA ASTHMA VINITA MORBID OBESITY ARTHRITIS KNEES, BACK COLLAGENOUS COLITIS ON BX 10/08 FAINTING SPELLS SINCE HEAD INJURY ON 02/27/17 JEFF EN Y GASTRIC BYPASS SURGERY 11/03/2013 ENLARGED THYROID--US 11/12, [employer] IN SIZE C/W PRIOR08/09; + THYROID AB; ENT REFERRAL 02/12-03/14,SHE WAS TX FOR REFLUX. HAD ESOPHAGRAM SHOWED MASS EFFECT ON ESOPHAGUS FROM THYROID; CT NECK SHOWED IMPINGEMENT OF THYROID ON ESOPAGUS. 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 1 SON(S) - HEALTHY. DENIES FAMILY HISTORY OF MM AND PANCREATIC CANCER. SOCIAL HISTORY GENERAL: TOBACCO USE ARE YOU A:FORMER SMOKER HOW LONG HAS IT BEEN SINCE YOU LAST SMOKED?> 10 YEARS LATEX QUESTIONNAIRE LATEX ALLERGY : HAVE YOU EVER DEVELOPED ANY TYPE OF REACTION AFTER HANDLING LATEX PRODUCTS SUCH RUBBER GLOVES, CONDOMS, DIAPHRAGMS, BALLOONS, SOCKS, OR UNDERWEAR?NO LATEX ALLERGY : HAVE YOU EVER DEVELOPED ANY TYPE OF REACTION DURING OR AFTER DENTAL APPOINTMENT, VAGINAL/RECTAL EXAMINATION, SURGICAL PROCEDURE, OR ANY OTHER EXPOSURE?NO DATE ASKED : 03/30/2020 LATEX RISK : HAVE YOU EVER HAD ANY DIFFICULTY BREATHING OR HIVES AFTER EATING OR HANDLING ANY FRUITS, OR VEGETABLES; SUCH KIWI, BANANAS, STONE FRUITS, OR CHESTNUTSNO LATEX RISK : DO YOU HAVE A PREVIOUS PERSONAL HISTORY OF MORE THAN NINE SURGERIES, SPINA BIFIDA, OR REPEATED CATHERIZATIONS? YES - PLEASE INDICATE : > 9 SURGERIES LATEX RISK : ARE YOU FREQUENTLY EXPOSED TO LATEX PRODUCTS IN YOUR OCCUPATION?NO ALCOHOL SCREENING DID YOU HAVE A DRINK CONTAINING ALCOHOL IN THE PAST YEAR?YES HOW OFTEN DID YOU HAVE SIX OR MORE DRINKS ON ONE OCCASION IN THE PAST YEAR?NEVER (0 POINTS) HOW MANY DRINKS DID YOU HAVE ON A TYPICAL DAY WHEN YOU WERE DRINKING IN THE PAST YEAR?1 OR 2 (0 POINTS) HOW OFTEN DID YOU HAVE A DRINK CONTAINING ALCOHOL IN THE PAST YEAR?MONTHLY OR LESS (1 POINT) POINTS1 INTERPRETATIONNEGATIVE RECREATIONAL DRUG USE DRUG USE?NO CAFFEINE CAFFEINE USE?YES ANA[employer]IST [id number] [employer]AN LANGUAGE LANGUAGES SPOKEN:AMHARIC EDUCATION LEVEL OF EDUCATION:COLLEGE LEARNING BARRIERS / SPECIAL NEEDS CHANGE FROM LAST VISIT?NO BARRIERS TO LEARNING?NO HEARING IMPAIRED?NO VISION IMPAIRED?YES COGNITIVELY IMPAIRED?NO :CORRECTIVE LENSES READINESS TO LEARN?YES LEARNING PREFERENCES?NO LEARNING CAPABILITIES PRESENT?YES EMOTIONAL BARRIERS?NO SPECIAL DEVICES?YES :CANE, OTHER NEEDED DUE TO LACK OF LEFT KNEE CAP, ELECTRIC CART FOR SHOPPING NEEDED ELECTRIC TRUCKER NEEDED?NO DOMESTIC VIOLENCE DO YOU FEEL SAFE IN YOUR ENVIRONMENT?YES OCCUPATION: DISABLED. DIET: NO CONCENTRATED SWEETS., CARBOHYDRATE CONTROLLED, NO ADDED SALT. EXERCISE: DAILY. MARITAL STATUS: . TODAY'S VISIT 10/17/2019, PATIENT DESCRIBES PAIN : ACHING, IT COMES AND GOES, SHARP, STABBING, TENDER, THROBBING, SORE, SHOOTING, OTHER "PINS AND NEEDLES", FROM 0-10, WHAT LEVEL IS YOUR PAIN TODAY? 7, PRECIPITATING FACTORS ACITVITY, EXCESSIVE WALKING OR BENDING, ALLEVIATING FACTORS LYING DOWN, ELEVATING LEGS, BIOFREEZE, IMPACT ON FUNCTION LIMITS HER ON WHAT SHE IS ABLE TO DO. PAIN CLINIC PFS, CLERGY, PUBLIC HEALTH REFERRALS PFS REFERRAL NEEDED?NO CLERGY REFERRAL NEEDED?NO PUBLIC HEALTH REFERRAL NEEDED?NO HAS THE PATIENT BEEN EDUCATED REGARDING HIS/HER PLAN OF CARE?YES HAS THE PATIENT BEEN EDUCATED REGARDING PAIN, THE RISK FOR PAIN, THE IMPORTANCE OF EFFECTIVE PAIN MANAGEMENT, AND THE PAIN ASSESSMENT PROCESS?YES ADVANCE DIRECTIVE ADVANCE DIRECTIVE DISCUSSED WITH PATIENT:YES PATIENT HAS HCP AND LIVING WILL - ON FILE HOSPITALIZATION/MAJOR DIAGNOSTIC PROCEDURE ABOVE REVIEW OF SYSTEMS CONSTITUTIONAL: ANY RECENT FEVER NO . CHILLS NO . WEIGHT CHANGE OF UNKNOWN REASONS NO . GASTROENTEROLOGY: NEW UNEXPLAINABLE CHANGES IN BOWEL CONTROL NO . CONSTIPATION NO . GENITOURINARY: ANY NEW CHANGE IN BLADDER CONTROL? NO . NEUROLOGY: NEW ONSET DIZZINESS OR NEUROLOGICAL CHANGES NOT MENTIONED NO . NEW NUMBNESS OR PAIN PATTERNS NOT MENTIONED AND PERTINENT TO TODAY'S VISIT NO . CARDIOLOGY: NEW CHEST PRESSURE NO . NEW CHEST PAIN NO . RESPIRATORY: UNEXPLAINABLE COUGH NO . NEW SHORTNESS OF BREATH NO . VITAL SIGNS WT 309.2 LBS, HT 63 IN, BMI 54.77 INDEX, BP 146/67 MM HG, HR 67 /MIN, RR 18 /MIN, TEMP 96.8 F, OXYGEN SAT % 97%, SAFE IN ENV? (Y/N) Y, NA INITIALS AW 1318, REVIEWED BY: EM. EXAMINATION GENERAL EXAMINATION: GENERALAWAKE,ALERT ,PLEASANT . PSYCHAFFECT NORMAL . LUNGS:LUNG SMITH ARE CLEAR TO AUSCULTATION BILATERALLY. GOOD MOVEMENT OF AIR . HEART:S1, S2 IN A REGULAR RATE AND RHYTHM. NO SIGNIFICANT MURMURS, RUBS OR GALLOPS NOTED . ASSESSMENTS OTHER CHRONIC PAIN - G89.29 (PRIMARY) SPONDYLOSIS WITHOUT MYELOPATHY OR RADICULOPATHY, LUMBOSACRAL REGION - M47.817 TREATMENT OTHER CHRONIC PAIN PAIN PROCEDURE LOGDATE OF [id number]/3/20PROCEDURE:BILAT LUMBAR FACET BLOCK THERAPEUTIC L4/5-L5/S7LFGIFQ OF PRE SEDATENORCO 5/325, VALIUM 5RESULT:SIGNIFICANT IMPROVEMENT CONTINUES TODAY NOTES: CONTINUE HOME EXERCISE AND STRETCHING. DISCUSSED POSSIBILITY OF DOING RADIOFREQUENCY PROCEDURE IN THE FUTURE WHEN HER PAIN RETURNS. SHE IS ABLE TO CONTRACT FOR SAFETY AND DENIES SUICIDAL PLANS. HAS A SUPPORT SYSTEM TO CONTACT IN BOTH HER AND SON WHEN SHE IS FEELING DEPRESSED WHICH SHE STATES IS HELPFUL. PROCEDURE CODES FA211 ESTABILISHED PATIENT [facility] FACILITY CHARGE DISPOSITION & COMMUNICATION FOLLOW UP 3 MONTHS (REASON: LOW BACK PAIN/CONSIDER DIAGNOSTIC LUMBAR FACET BLOCKS IF PAIN ESCALATES) ELECTRONICALLY SIGNED BY AMANDA JOSE ON 04/15/2020 AT 03:51 PM EST DISCLAIMER : THIS IS A VISIT SUMMARY EXTRACTED FROM THE [employer] CHART. IT IS NOT A COPY OF THE [employer] PROGRESS NOTE. OTTO
== END ==
LOC: M PAIN 13:30
PROVIDERS: ATTEND Nurse Practitioner Family
DX: M47.817 Spondylosis without myelopathy or radiculopathy, lumbosacral region (principal); G89.29 Other chronic pain; M79.7 Fibromyalgia; G43.909 Migraine, unspecified, not intractable, without status migrainosus; J45.909 Unspecified asthma, uncomplicated; G47.33 Obstructive sleep apnea (adult) (pediatric); E55.9 Vitamin D deficiency, unspecified; Z98.84 Bariatric surgery status; Z87.891 Personal history of nicotine dependence; Z88.0 Allergy status to penicillin; E66.01 Morbid (severe) obesity due to excess calories; Z68.43 Body mass index [BMI] 50.0-59.9, adult; Z79.899 Other long term (current) drug therapy

== ENCOUNTER → 2020-06-08 | Outpatient (REF) | payer MEDICARE, OTHER ==
[2020-06-08 12:51] LABS: HEMATOCRIT 41.6 % (36.0-47.0); HEMOGLOBIN 13.2 g/dl (12.0-15.5); MEAN CORPUSCULAR HEMOGLOBIN 27.6 pg (27.0-33.0); MEAN CORPUSCULAR HGB CONC 31.7 g/dl (32.0-36.5); MEAN CORPUSCULAR VOLUME 86.8 fl (80.0-96.0); PLATELET COUNT, AUTOMATED 235 10^3/uL (150-450); RED BLOOD COUNT 4.79 10^6/uL (4.00-5.40); WHITE BLOOD COUNT 8.4 10^3/uL (4.0-10.0)
[2020-06-08 15:11] LABS: ALBUMIN 3.5 GM/DL (3.2-5.2); ALT/SGPT 28 U/L (12-78); BILIRUBIN,TOTAL 0.3 MG/DL (0.2-1.0); BLOOD UREA NITROGEN 21 MG/DL (7-18); CALCIUM LEVEL 8.3 MG/DL (8.5-10.1); CARBON DIOXIDE LEVEL 27 MEQ/L (21-32); CHLORIDE LEVEL 108 MEQ/L (98-107); CHOLESTEROL LEVEL 282 MG/DL (<200); CHOLESTEROL RISK RATIO 4.208 (<5); FERRITIN 14 NG/ML (8-252); FREE T4 0.89 NG/DL (0.76-1.46); GLOMERULAR FILTRATION RATE > 60.0 (>51); GLUCOSE, FASTING 87 MG/DL (70-100); HDL CHOLESTEROL 67 MG/DL (>40); LDL CHOLESTEROL 174 MG/DL (<100); NON-HDL-C 215 MG/DL; POTASSIUM SERUM 4.6 MEQ/L (3.5-5.1); SODIUM LEVEL 140 MEQ/L (136-145); TOTAL PROTEIN 6.7 GM/DL (6.4-8.2); TRIGLYCERIDES LEVEL 206 MG/DL (<150)
[2020-06-08 15:18] LABS: FOLATE 14.9 NG/ML (>5.4); TOTAL 25(OH) VITAMIN D 36.1 NG/ML (30.0-100.0); VITAMIN B12 LEVEL 1293 PG/ML (247-911)
== END ==
LOC: M SFHCADAM 10:14
PROVIDERS: ATTEND Family Medicine
DX: M79.7 Fibromyalgia (principal); E55.9 Vitamin D deficiency, unspecified; C73 Malignant neoplasm of thyroid gland; F41.9 Anxiety disorder, unspecified; Z98.84 Bariatric surgery status; Z79.899 Other long term (current) drug therapy
CPT/HCPCS: 80053; 80061; 82306; 82607; 82728; 82746; 84439; 84443; 85027; G0463

== ENCOUNTER → 2020-07-14 | Outpatient (CLI) | payer MEDICARE, OTHER ==
--- NOTE | 2020-07-16 06:46 | ECWPNPC ---
PATIENT NAME: LOY QUINN : 1960 GENDER: FEMALE VISIT DATE: 07/14/2020 DISCHARGE DATE: 07/14/20 1432 VISIT LOCKED DATE TIME: PHYSICIAN: CLEOPATRA COPELAND PHYSICIAN PAGER NO: ACTIVE RESOURCE: CLEOPATRA COPELAND REASON FOR APPOINTMENT 1. BACK HISTORY OF PRESENT ILLNESS GENERAL: HERE FOR FOLLOW-UP OF CHRONIC LOW BACK PAIN. PAIN IS WORSE ON THE RIGHT LOW BACK REGION. PATIENT WAS DOING WELL AFTER BILATERAL LUMBAR FACET BLOCK THERAPEUTIC UP UNTIL 1 MONTH AGO. DENIES PRECIPITATING EVENT. DISCUSSED POSSIBILITY OF DOING RADIOFREQUENCY PROCEDURE AFTER DIAGNOSTIC TESTING. PATIENT WOULD LIKE TO JUST DO THERAPEUTIC LUMBAR BLOCK LIKE SHE HAD BEFORE AFTER OUR DISCUSSION. NO RECENT MRI IMAGING OF L/S SPINE. -. FALL RISK SCREENING: SCREENING :NO FALLS REPORTED IN THE LAST YEAR PAIN SCREENING: PATIENT HAS A COMPLAINT OF ACUTE OR CHRONIC PAIN :YES LOCATION OF PAIN:LOW BACK INTENSITY OF PAIN (SCALE OF 1 TO 10):7 WHAT DOES YOUR PAIN FEEL LIKE:SHARP, THROBBING, SHOOTING DURATION:CONTINOUS, CONSTANT, ALL DAY PAIN IS INCREASED BY:ACTIVITIES, PROLONGED STANDING PAIN IS DECREASED BY:USE OF PAIN MEDICATIONS, OTHERS HEAT AND ICE NURSING NOTE: -. PAIN CENTER INTAKE QUESTIONS: DO YOU HAVE A HISTORY OF MRSA? :NO DO YOU TAKE A BLOOD THINNERS? :NO DO YOU HAVE ANY BLEEDING DISORDERS? :NO ANY NEW NUMBNESS OR WEAKNESS IN YOUR LEGS OR ARMS? :NO ANY PACEMAKER,DEFIBRILLATOR, OR DORSAL COLUMN STIMULATOR? :NO DO YOU HAVE ANY RASHES OR OPEN SORES? :NO ARE YOU ALLERGIC TO IV DYE? :NO ARE YOU DIABETIC? :NO ANY NEW PROBLEMS WITH YOUR MEDICATIONS? :NO HAVE YOU RECEIVED A VACCINE IN THE PAST 30 DAYS? :NO DO YOU PLAN TO RECEIVE A VACCINE IN THE NEXT 21 DAYS? :NO DO YOU NEED ANY PRESCRIPTION? :NO DO YOU TAKE ANY IMMUNOSUPPRESSIVE MEDICATIONS? :NO IS THERE A CHANCE YOU COULD BE ? :NO ARE YOU BREAST FEEDING? :NO CURRENT MEDICATIONS TAKING CALCIUM CITRATE 1040 MG TABLET 1 TABLET ORALLY TWICE A DAY TAKING POTASSIUM 99 MG TABLET 1 TABLET ORALLY ONCE A DAY TAKING VITAMIN C 500 MG TABLET CHEWABLE 1 TABLET ORALLY ONCE A DAY TAKING BIOTIN 5 MG CAPSULE 2 TABLET ORALLY ONCE A DAY TAKING VITAMIN B12 1000 TABLET 1 TABLET ORALLY ONCE A DAY TAKING MULTIVITAL TABLET 2 TAB(S) ORALLY ONCE A DAY TAKING MAGNESIUM OXIDE 500 MG TABLET 2 TABLETS ORALLY BEFORE BEDTIME TAKING PROBIOTIC - CAPSULE 1 TAB ORALLY DAILY TAKING FERROUS GLUCONATE 324 (38 FE) MG TABLET 2 TABS ORALLY DAILY TAKING TOPIRAMATE 100 MG TABLET TAKE ONE AND ONE HALF TABLETS BY MOUTH AT BEDTIME ORAL DAILY TAKING LEVOTHYROXINE SODIUM 137 MCG CAPSULE 2 TABLETS ORALLY DAILY TAKING DRISDOL 76056 UNIT CAPSULE 1 CAPSULE ORALLY TWICE A WEEK ON SUNDAY AND TAKING ONDANSETRON HCL 4 MG TABLET 1 TABLET ORALLY EVERY 8 HOURS NEEDED FOR MIGRAINE TAKING MAY HAVE - - 5-HTP 100 MG, 2 TABLETS ORALLY DAILY TAKING AMLACTIN 12 % LOTION 1 APPLICATION EXTERNALLY TWICE A DAY NEEDED TAKING VITAMIN D3 50 MCG (2000 UT) TABLET 3 TABLETS ORALLY ONCE A DAY TAKING FIBER - CAPSULE 2 CAPSULES ORALLY DAILY TAKING MELATONIN 5 MG TABLET 4 TABLETS IN THE EVENING ORALLY BEFORE BEDTIME TAKING OMEPRAZOLE 40 MG CAPSULE DELAYED RELEASE 1 CAPSULE ORALLY BEFORE BEDTIME TAKING SUMATRIPTAN SUCCINATE 50 MG TABLET 1 TABLET AT LEAST 2 HOURS BETWEEN DOSES NEEDED ORALLY TWICE A DAY NEEDED TAKING VITAMIN E 400 UNIT CAPSULE 2 CAPSULES ORALLY BEFORE BEDTIME TAKING ZINC 50 MG TABLET 2 TABLETS ORALLY ONCE A DAY TAKING MOMETASONE FUROATE 0.1 % OINTMENT 1 APPLICATION TO AFFECTED AREA EXTERNALLY TO RASH ON LEGS ONCE A DAY NEEDED TAKING LYRICA 200 MG CAPSULE 1 CAPSULE ORALLY BID MDD2 TAKING WELLBUTRIN SR 150 MG TABLET EXTENDED RELEASE 12 HOUR 1 TABLET ORALLY TWICE A DAY TAKING HYDROXYZINE HCL 25 MG TABLET 1 -2 TABLETS ORALLY EVERY 8 HRS NEEDED FOR ITCHING, MDD=6 TAKING VENTOLIN HFA 108 (90 BASE) MCG/ACT AEROSOL SOLUTION 2 PUFFS NEEDED INHALATION EVERY 4-6 HRS PRN SOB TAKING OXYBUTYNIN CHLORIDE ER 10 MG TABLET EXTENDED RELEASE 24 HOUR 1 TABLET ORALLY BEFORE BEDTIME TAKING LEVOCETIRIZINE DIHYDROCHLORIDE 5 MG TABLET 1 TABLET IN THE EVENING ORALLY ONCE A DAY TAKING OLOPATADINE HCL 0.2 % SOLUTION 1 DROP INTO AFFECTED EYE OPHTHALMIC BID MEDICATION LIST REVIEWED AND RECONCILED WITH THE PATIENT PAST MEDICAL HISTORY DEPRESSION WITH ANXIETY FIBROMYALGIA--WENT TO PAIN CLINIC FOR TPI LAST 05/13, REFERRED AGAIN 06/16 NERVE PAIN MIGRAINES HYPERLIPIDEMIA ASTHMA VINITA MORBID OBESITY ARTHRITIS KNEES, BACK COLLAGENOUS COLITIS ON BX 10/08 FAINTING SPELLS SINCE HEAD INJURY ON 02/27/17 JEFF EN Y GASTRIC BYPASS SURGERY 11/03/2013 ENLARGED THYROID--US 11/12, [employer] IN SIZE C/W PRIOR08/09; + THYROID AB; ENT REFERRAL 02/12-03/14,SHE WAS TX FOR REFLUX. HAD ESOPHAGRAM SHOWED MASS EFFECT ON ESOPHAGUS FROM THYROID; CT NECK SHOWED IMPINGEMENT OF THYROID ON ESOPAGUS. 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 VERTIGO STRESS INCONTINENCE HYPOCALCEMIA VITAMIN D DEFICIENCY ABNORMAL GAIT ALLERGIES PENICILLIN (FOR ALLERGIES USE ONLY): ANAPHYLAXIS - ALLERGY SOCIAL HISTORY GENERAL: TOBACCO USE ARE YOU A:FORMER SMOKER HOW LONG HAS IT BEEN SINCE YOU LAST SMOKED?> 10 YEARS LATEX QUESTIONNAIRE LATEX ALLERGY : HAVE YOU EVER DEVELOPED ANY TYPE OF REACTION AFTER HANDLING LATEX PRODUCTS SUCH RUBBER GLOVES, CONDOMS, DIAPHRAGMS, BALLOONS, SOCKS, OR UNDERWEAR?NO LATEX ALLERGY : HAVE YOU EVER DEVELOPED ANY TYPE OF REACTION DURING OR AFTER DENTAL APPOINTMENT, VAGINAL/RECTAL EXAMINATION, SURGICAL PROCEDURE, OR ANY OTHER EXPOSURE?NO LATEX RISK : HAVE YOU EVER HAD ANY DIFFICULTY BREATHING OR HIVES AFTER EATING OR HANDLING ANY FRUITS, OR VEGETABLES; SUCH KIWI, BANANAS, STONE FRUITS, OR CHESTNUTSNO LATEX RISK : DO YOU HAVE A PREVIOUS PERSONAL HISTORY OF MORE THAN NINE SURGERIES, SPINA BIFIDA, OR REPEATED CATHERIZATIONS? YES - PLEASE INDICATE : > 9 SURGERIES LATEX RISK : ARE YOU FREQUENTLY EXPOSED TO LATEX PRODUCTS IN YOUR OCCUPATION?NO DATE ASKED : 07/14/2020 ALCOHOL USE: NO. ALCOHOL SCREENING DID YOU HAVE A DRINK CONTAINING ALCOHOL IN THE PAST YEAR?YES HOW OFTEN DID YOU HAVE SIX OR MORE DRINKS ON ONE OCCASION IN THE PAST YEAR?NEVER (0 POINTS) HOW MANY DRINKS DID YOU HAVE ON A TYPICAL DAY WHEN YOU WERE DRINKING IN THE PAST YEAR?1 OR 2 (0 POINTS) HOW OFTEN DID YOU HAVE A DRINK CONTAINING ALCOHOL IN THE PAST YEAR?MONTHLY OR LESS (1 POINT) POINTS1 INTERPRETATIONNEGATIVE RECREATIONAL DRUG USE DRUG USE?NO CAFFEINE CAFFEINE USE?YES SIKH [id number] TAOIST LANGUAGE LANGUAGES SPOKEN:TURKMEN EDUCATION LEVEL OF EDUCATION:COLLEGE LEARNING BARRIERS / SPECIAL NEEDS CHANGE FROM LAST VISIT?NO BARRIERS TO LEARNING?NO HEARING IMPAIRED?NO VISION IMPAIRED?YES :CORRECTIVE LENSES COGNITIVELY IMPAIRED?NO READINESS TO LEARN?YES LEARNING PREFERENCES?NO LEARNING CAPABILITIES PRESENT?YES EMOTIONAL BARRIERS?NO SPECIAL DEVICES?YES :CANE, OTHER NEEDED DUE TO LACK OF LEFT KNEE CAP, ELECTRIC CART FOR SHOPPING NEEDED MANAGER PHILOSOPHY NEEDED?NO DOMESTIC VIOLENCE DO YOU FEEL SAFE IN YOUR ENVIRONMENT?YES OCCUPATION: DISABLED. DIET: NO CONCENTRATED SWEETS., CARBOHYDRATE CONTROLLED, NO ADDED SALT. EXERCISE: DAILY. MARITAL STATUS: . TODAY'S VISIT 10/17/2019, PATIENT DESCRIBES PAIN : ACHING, IT COMES AND GOES, SHARP, STABBING, TENDER, THROBBING, SORE, SHOOTING, OTHER "PINS AND NEEDLES", FROM 0-10, WHAT LEVEL IS YOUR PAIN TODAY? 7, PRECIPITATING FACTORS ACITVITY, EXCESSIVE WALKING OR BENDING, ALLEVIATING FACTORS LYING DOWN, ELEVATING LEGS, BIOFREEZE, IMPACT ON FUNCTION LIMITS HER ON WHAT SHE IS ABLE TO DO. - PFS REFERRAL NEEDED?NO CLERGY REFERRAL NEEDED?NO PUBLIC HEALTH REFERRAL NEEDED?NO HAS THE PATIENT BEEN EDUCATED REGARDING HIS/HER PLAN OF CARE?YES HAS THE PATIENT BEEN EDUCATED REGARDING PAIN, THE RISK FOR PAIN, THE IMPORTANCE OF EFFECTIVE PAIN MANAGEMENT, AND THE PAIN ASSESSMENT PROCESS?YES ADVANCE DIRECTIVE ADVANCE DIRECTIVE DISCUSSED WITH PATIENT:YES PATIENT HAS HCP AND LIVING WILL - ON FILE REVIEW OF SYSTEMS CONSTITUTIONAL: ANY RECENT FEVER NO . CHILLS NO . WEIGHT CHANGE OF UNKNOWN REASONS NO . GASTROENTEROLOGY: NEW UNEXPLAINABLE CHANGES IN BOWEL CONTROL NO . CONSTIPATION NO . GENITOURINARY: ANY NEW CHANGE IN BLADDER CONTROL? NO . NEUROLOGY: NEW ONSET DIZZINESS OR NEUROLOGICAL CHANGES NOT MENTIONED NO . NEW NUMBNESS OR PAIN PATTERNS NOT MENTIONED AND PERTINENT TO TODAY'S VISIT NO . CARDIOLOGY: NEW CHEST PRESSURE NO . NEW CHEST PAIN NO . RESPIRATORY: UNEXPLAINABLE COUGH NO . NEW SHORTNESS OF BREATH NO . VITAL SIGNS WT 316.4 LBS, HT 63 IN, BMI 56.04 INDEX, BP 143/73 MM HG, HR 85 /MIN, RR 18 /MIN, TEMP 97.0 F, OXYGEN SAT % 97%, SAFE IN ENV? (Y/N) YES, NA INITIALS VT 13:58T.CHRISTINA JAUREGUI. EXAMINATION GENERAL EXAMINATION: GENERAL AWAKE,ALERT ,PLEAASANT . PSYCH AFFECT NORMAL . LUNGS: LUNG SMITH ARE CLEAR TO AUSCULTATION BILATERALLY. GOOD MOVEMENT OF AIR . HEART: S1, S2 IN A REGULAR RATE AND RHYTHM. NO SIGNIFICANT MURMURS, RUBS OR GALLOPS NOTED . MUSCULOSKELETAL: MUSCLE STRENGTH TESTING 4/5 BILATERAL LOWER EXTREMITIES. LUMBAR:SPECIFIC POINT TENDERNESS NOTED OVER L4-5, L5-S1 LUMBAR FACETS. PAIN IS AGGRAVATED IN THIS REGION WITH FACET LOADING.. DIAGNOSTIC TESTS REVIEWED MRI L/S SPINE-2017. ASSESSMENTS OTHER CHRONIC PAIN - G89.29 (PRIMARY) SPONDYLOSIS WITHOUT MYELOPATHY OR RADICULOPATHY, LUMBOSACRAL REGION - M47.817 TREATMENT OTHER CHRONIC PAIN [facility] MRI LUMBAR W/O CONTRAST (CPT 56200)[id number] PROCEDURE CODES FA211 ESTABILISHED PATIENT [facility] CHARGE DISPOSITION & COMMUNICATION FOLLOW UP 6 WEEKS (REASON: FOLLOW-UP AFTER MRI L/S SPINE/REVIEW FOR THERAPEUTIC LUMBAR FACET BLOCK) ELECTRONICALLY SIGNED BY AMANDA JOSE ON 07/15/2020 AT 11:30 AM EST DISCLAIMER : THIS IS A VISIT SUMMARY EXTRACTED FROM THE [employer] CHART. IT IS NOT A COPY OF THE [employer] PROGRESS NOTE. OTTO
== END ==
LOC: M PAIN 14:00
PROVIDERS: ATTEND Nurse Practitioner Family
DX: G89.29 Other chronic pain (principal); M47.817 Spondylosis without myelopathy or radiculopathy, lumbosacral region; E66.01 Morbid (severe) obesity due to excess calories; Z68.43 Body mass index [BMI] 50.0-59.9, adult; M79.7 Fibromyalgia; G43.909 Migraine, unspecified, not intractable, without status migrainosus; J45.909 Unspecified asthma, uncomplicated; G47.33 Obstructive sleep apnea (adult) (pediatric); E55.9 Vitamin D deficiency, unspecified; Z98.84 Bariatric surgery status; Z87.891 Personal history of nicotine dependence; Z88.0 Allergy status to penicillin; Z79.899 Other long term (current) drug therapy

== ENCOUNTER → 2020-08-06 | Outpatient (CLI) | payer MEDICARE, OTHER ==
--- NOTE | 2020-08-08 15:38 | REP ---
INDICATION: SPONDYLOSIS. COMPARISON: Comparison is made with CT imaging from October 16, 2016.. TECHNIQUE: Sagittal and axial T1 and T2-weighted scans are acquired in the usual fashion with and without fat saturation. Sequences include spin echo, turbo spin-echo, and STIR imaging sequences. FINDINGS: Lumbar vertebral body heights are preserved. Alignment is normal. Cortical and medullary bone signal intensity are normal. Vertebral body heights are preserved. Pedicles and posterior elements are intact. There is no evidence of spondylolysis or spondylolisthesis. At L5-S1, there is mild bilateral facet hypertrophy. No disc protrusion or neural foraminal narrowing is seen. Axial and sagittal images at L4-5 show mild bilateral facet hypertrophy. No neural foraminal narrowing is seen. No disc protrusion is noted. At L3-4, there is minimal facet and ligamentum flavum hypertrophy. No other finding. At L2-3, no abnormality is seen. The L1-2 and the lower thoracic levels are unremarkable. There is a small hemangioma in the T12 vertebral body and mild degenerative disc disease is seen in the lower thoracic disc spaces. IMPRESSION: Mild osteoarthritic facet disease in the lower lumbar spine. Degenerative disc changes in the lower thoracic disc spaces. No disc protrusion, spinal stenosis, or neural foraminal encroachment is appreciated. <Electronically signed by Christoph Zhu > 08/08/20 [id number]
== END ==
LOC: M RAD 13:28
PROVIDERS: ATTEND Nurse Practitioner Family
DX: M47.817 Spondylosis without myelopathy or radiculopathy, lumbosacral region (principal)

== ENCOUNTER → 2020-08-13 | Outpatient (CLI) | payer MEDICARE, OTHER ==
[2020-08-13 10:38] LABS: BLOOD UREA NITROGEN 24 MG/DL (7-18); CALCIUM LEVEL 8.1 MG/DL (8.5-10.1); CARBON DIOXIDE LEVEL 26 MEQ/L (21-32); CHLORIDE LEVEL 111 MEQ/L (98-107); CREATININE FOR GFR 0.66 MG/DL (0.55-1.30); GLOMERULAR FILTRATION RATE > 60.0 (>51); GLUCOSE, FASTING 84 MG/DL (70-100); PHOSPHORUS LEVEL 3.3 MG/DL (2.5-4.9); POTASSIUM SERUM 4.3 MEQ/L (3.5-5.1); SODIUM LEVEL 141 MEQ/L (136-145); TOTAL 25(OH) VITAMIN D 38.5 NG/ML (30.0-100.0)
== END ==
LOC: M WUC 08:11
PROVIDERS: ATTEND Physician Assistant Medical
DX: E83.51 Hypocalcemia (principal); E89.0 Postprocedural hypothyroidism

== ENCOUNTER → 2020-08-26 | Outpatient (CLI) | payer MEDICARE, OTHER ==
--- NOTE | 2020-08-31 03:45 | ECWPNPC ---
PATIENT NAME: LOY QUINN : 1960 GENDER: FEMALE VISIT DATE: 08/26/2020 DISCHARGE DATE: 08/26/20 1443 VISIT LOCKED DATE TIME: PHYSICIAN: CLEOPATRA COPELAND PHYSICIAN PAGER NO: ACTIVE RESOURCE: CLEOPATRA COPELAND REASON FOR APPOINTMENT 1. REVIEW MRI/REVIEW FOR THERAPEUTIC LUMBAR FACET BLOCK HISTORY OF PRESENT ILLNESS GENERAL: HERE FOR FOLLOW-UP OF CHRONIC LOW BACK PAIN. REVIEWED MRI OF THE LUMBAR SPINE THAT I HAD ORDERED AT HER LAST VISIT. THIS IS SHOWING MILD FACET ARTHROPATHY. PATIENT HAS RESPONDED WELL WITH SEVERAL MONTHS OF DECREASED PAIN AND IMPROVED ACTIVITY TOLERANCE AFTER HER LAST BILATERAL LUMBAR FACET THERAPEUTIC BLOCK.-. FALL RISK SCREENING: SCREENING ONE FALL DID NOT GO THE ER. PAIN SCREENING: PATIENT HAS A COMPLAINT OF ACUTE OR CHRONIC PAIN :YES LOCATION OF PAIN:LOW BACK INTENSITY OF PAIN (SCALE OF 1 TO 10):8 WHAT DOES YOUR PAIN FEEL LIKE:THROBBING, SHOOTING DURATION:CONTINOUS, CONSTANT, ALL DAY PAIN IS INCREASED BY:ACTIVITIES, PROLONGED STANDING PAIN IS DECREASED BY:OTHERS LAYING DOWN AND ICE AND HEAT NURSING NOTE: -. PAIN CENTER INTAKE QUESTIONS: DO YOU HAVE A HISTORY OF MRSA? :NO DO YOU TAKE A BLOOD THINNERS? :NO DO YOU HAVE ANY BLEEDING DISORDERS? :NO ANY NEW NUMBNESS OR WEAKNESS IN YOUR LEGS OR ARMS? :NO ANY PACEMAKER,DEFIBRILLATOR, OR DORSAL COLUMN STIMULATOR? :NO DO YOU HAVE ANY RASHES OR OPEN SORES? :NO ARE YOU ALLERGIC TO IV DYE? :NO ARE YOU DIABETIC? :NO ANY NEW PROBLEMS WITH YOUR MEDICATIONS? :NO HAVE YOU RECEIVED A VACCINE IN THE PAST 30 DAYS? :YES IF SO WHAT VACCINE AND WHEN? 1ST COVID 08/13/2020 DO YOU PLAN TO RECEIVE A VACCINE IN THE NEXT 21 DAYS? :YES 2ND COVID 09/13/2020 DO YOU NEED ANY PRESCRIPTION? :YES LYRICA DO YOU TAKE ANY IMMUNOSUPPRESSIVE MEDICATIONS? :NO IS THERE A CHANCE YOU COULD BE ? :NO ARE YOU BREAST FEEDING? :NO CURRENT MEDICATIONS TAKING CALCIUM CITRATE 1040 MG TABLET 1 TABLET ORALLY TWICE A DAY TAKING POTASSIUM 99 MG TABLET 1 TABLET ORALLY ONCE A DAY TAKING VITAMIN C 500 MG TABLET CHEWABLE 1 TABLET ORALLY ONCE A DAY TAKING BIOTIN 5 MG CAPSULE 2 TABLET ORALLY ONCE A DAY TAKING VITAMIN B12 1000 TABLET 1 TABLET ORALLY ONCE A DAY TAKING MULTIVITAL TABLET 2 TAB(S) ORALLY ONCE A DAY TAKING MAGNESIUM OXIDE 500 MG TABLET 2 TABLETS ORALLY BEFORE BEDTIME TAKING PROBIOTIC - CAPSULE 1 TAB ORALLY DAILY TAKING FERROUS GLUCONATE 324 (38 FE) MG TABLET 2 TABS ORALLY DAILY TAKING TOPIRAMATE 100 MG TABLET TAKE ONE AND ONE HALF TABLETS BY MOUTH AT BEDTIME ORAL DAILY TAKING LEVOTHYROXINE SODIUM 100 MCG TABLET 4 TABLETS ORALLY EVERYDAY TAKING DRISDOL 81210 UNIT CAPSULE 1 CAPSULE ORALLY TWICE A WEEK ON SUNDAY AND TAKING ONDANSETRON HCL 4 MG TABLET 1 TABLET ORALLY EVERY 8 HOURS NEEDED FOR MIGRAINE TAKING MAY HAVE - - 5-HTP 100 MG, 2 TABLETS ORALLY DAILY TAKING AMLACTIN 12 % LOTION 1 APPLICATION EXTERNALLY TWICE A DAY NEEDED TAKING VITAMIN D3 50 MCG (2000 UT) TABLET 3 TABLETS ORALLY ONCE A DAY TAKING FIBER - CAPSULE 2 CAPSULES ORALLY DAILY TAKING MELATONIN 5 MG TABLET 4 TABLETS IN THE EVENING ORALLY BEFORE BEDTIME TAKING OMEPRAZOLE 40 MG CAPSULE DELAYED RELEASE 1 CAPSULE ORALLY BEFORE BEDTIME TAKING SUMATRIPTAN SUCCINATE 50 MG TABLET 1 TABLET AT LEAST 2 HOURS BETWEEN DOSES NEEDED ORALLY TWICE A DAY NEEDED TAKING VITAMIN E 400 UNIT CAPSULE 2 CAPSULES ORALLY BEFORE BEDTIME TAKING ZINC 50 MG TABLET 2 TABLETS ORALLY ONCE A DAY TAKING MOMETASONE FUROATE 0.1 % OINTMENT 1 APPLICATION TO AFFECTED AREA EXTERNALLY TO RASH ON LEGS ONCE A DAY NEEDED TAKING LYRICA 200 MG CAPSULE 1 CAPSULE ORALLY BID MDD2 TAKING WELLBUTRIN SR 150 MG TABLET EXTENDED RELEASE 12 HOUR 1 TABLET ORALLY TWICE A DAY TAKING HYDROXYZINE HCL 25 MG TABLET 1 -2 TABLETS ORALLY EVERY 8 HRS NEEDED FOR ITCHING, MDD=6 TAKING VENTOLIN HFA 108 (90 BASE) MCG/ACT AEROSOL SOLUTION 2 PUFFS NEEDED INHALATION EVERY 4-6 HRS PRN SOB TAKING LEVOCETIRIZINE DIHYDROCHLORIDE 5 MG TABLET 1 TABLET IN THE EVENING ORALLY ONCE A DAY TAKING OLOPATADINE HCL 0.2 % SOLUTION 1 DROP INTO AFFECTED EYE OPHTHALMIC BID TAKING VALIUM 5 MG TABLET 1 ATB ORALLY 1/2 HR PRE PROCEDURE MDD1 TAKING OXYBUTYNIN CHLORIDE ER 10 MG TABLET EXTENDED RELEASE 24 HOUR 1 TABLET ORALLY BEFORE BEDTIME MEDICATION LIST REVIEWED AND RECONCILED WITH THE PATIENT PAST MEDICAL HISTORY DEPRESSION WITH ANXIETY FIBROMYALGIA--WENT TO PAIN CLINIC FOR TPI LAST 05/13, REFERRED AGAIN 06/16 NERVE PAIN MIGRAINES HYPERLIPIDEMIA ASTHMA VINITA MORBID OBESITY ARTHRITIS KNEES, BACK COLLAGENOUS COLITIS ON BX 10/08 FAINTING SPELLS SINCE HEAD INJURY ON 02/27/17 JEFF EN Y GASTRIC BYPASS SURGERY 11/03/2013 ENLARGED THYROID--US 11/12, SIGNIF INC IN SIZE C/W PRIOR08/09; + THYROID AB; ENT REFERRAL 02/12-03/14,SHE WAS TX FOR REFLUX. HAD ESOPHAGRAM SHOWED MASS EFFECT ON ESOPHAGUS FROM THYROID; CT NECK SHOWED IMPINGEMENT OF THYROID ON ESOPAGUS. 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 VERTIGO STRESS INCONTINENCE HYPOCALCEMIA VITAMIN D DEFICIENCY ABNORMAL GAIT ALLERGIES PENICILLIN (FOR ALLERGIES USE ONLY): ANAPHYLAXIS - ALLERGY SOCIAL HISTORY GENERAL: TOBACCO USE ARE YOU A:FORMER SMOKER HOW LONG HAS IT BEEN SINCE YOU LAST SMOKED?> 10 YEARS LATEX QUESTIONNAIRE LATEX ALLERGY : HAVE YOU EVER DEVELOPED ANY TYPE OF REACTION AFTER HANDLING LATEX PRODUCTS SUCH RUBBER GLOVES, CONDOMS, DIAPHRAGMS, BALLOONS, SOCKS, OR UNDERWEAR?NO LATEX ALLERGY : HAVE YOU EVER DEVELOPED ANY TYPE OF REACTION DURING OR AFTER DENTAL APPOINTMENT, VAGINAL/RECTAL EXAMINATION, SURGICAL PROCEDURE, OR ANY OTHER EXPOSURE?NO LATEX RISK : HAVE YOU EVER HAD ANY DIFFICULTY BREATHING OR HIVES AFTER EATING OR HANDLING ANY FRUITS, OR VEGETABLES; SUCH KIWI, BANANAS, STONE FRUITS, OR CHESTNUTSNO LATEX RISK : DO YOU HAVE A PREVIOUS PERSONAL HISTORY OF MORE THAN NINE SURGERIES, SPINA BIFIDA, OR REPEATED CATHERIZATIONS? YES - PLEASE INDICATE : > 9 SURGERIES LATEX RISK : ARE YOU FREQUENTLY EXPOSED TO LATEX PRODUCTS IN YOUR OCCUPATION?NO DATE ASKED : 08/26/2020 ALCOHOL USE: NO. ALCOHOL SCREENING DID YOU HAVE A DRINK CONTAINING ALCOHOL IN THE PAST YEAR?YES HOW OFTEN DID YOU HAVE SIX OR MORE DRINKS ON ONE OCCASION IN THE PAST YEAR?NEVER (0 POINTS) HOW MANY DRINKS DID YOU HAVE ON A TYPICAL DAY WHEN YOU WERE DRINKING IN THE PAST YEAR?1 OR 2 (0 POINTS) HOW OFTEN DID YOU HAVE A DRINK CONTAINING ALCOHOL IN THE PAST YEAR?MONTHLY OR LESS (1 POINT) POINTS1 INTERPRETATIONNEGATIVE RECREATIONAL DRUG USE DRUG USE?NO CAFFEINE CAFFEINE USE?YES JAINISM [id number] QUAKER LANGUAGE LANGUAGES SPOKEN:[place] CITIZ[place] EDUCATION LEVEL OF EDUCATION:COLLEGE LEARNING BARRIERS / SPECIAL NEEDS CHANGE FROM LAST VISIT?NO BARRIERS TO LEARNING?NO HEARING IMPAIRED?NO VISION IMPAIRED?YES :CORRECTIVE LENSES COGNITIVELY IMPAIRED?NO READINESS TO LEARN?YES LEARNING PREFERENCES?NO LEARNING CAPABILITIES PRESENT?YES EMOTIONAL BARRIERS?NO SPECIAL DEVICES?YES :CANE, OTHER NEEDED DUE TO LACK OF LEFT KNEE CAP, ELECTRIC CART FOR SHOPPING NEEDED OVER SHORT AND DAMAGE CLERK NEEDED?NO DOMESTIC VIOLENCE DO YOU FEEL SAFE IN YOUR ENVIRONMENT?YES OCCUPATION: DISABLED. DIET: NO CONCENTRATED SWEETS., CARBOHYDRATE CONTROLLED, NO ADDED SALT. EXERCISE: DAILY. MARITAL STATUS: . TODAY'S VISIT 10/17/2019, PATIENT DESCRIBES PAIN : ACHING, IT COMES AND GOES, SHARP, STABBING, TENDER, THROBBING, SORE, SHOOTING, OTHER "PINS AND NEEDLES", FROM 0-10, WHAT LEVEL IS YOUR PAIN TODAY? 7, PRECIPITATING FACTORS ACITVITY, EXCESSIVE WALKING OR BENDING, ALLEVIATING FACTORS LYING DOWN, ELEVATING LEGS, BIOFREEZE, IMPACT ON FUNCTION LIMITS HER ON WHAT SHE IS ABLE TO DO. - PFS REFERRAL NEEDED?NO CLERGY REFERRAL NEEDED?NO PUBLIC HEALTH REFERRAL NEEDED?NO HAS THE PATIENT BEEN EDUCATED REGARDING HIS/HER PLAN OF CARE?YES HAS THE PATIENT BEEN EDUCATED REGARDING PAIN, THE RISK FOR PAIN, THE IMPORTANCE OF EFFECTIVE PAIN MANAGEMENT, AND THE PAIN ASSESSMENT PROCESS?YES ADVANCE DIRECTIVE ADVANCE DIRECTIVE DISCUSSED WITH PATIENT:YES PATIENT HAS HCP AND LIVING WILL - ON FILE REVIEW OF SYSTEMS CONSTITUTIONAL: ANY RECENT FEVER NO . CHILLS NO . WEIGHT CHANGE OF UNKNOWN REASONS NO . GASTROENTEROLOGY: NEW UNEXPLAINABLE CHANGES IN BOWEL CONTROL NO . CONSTIPATION NO . GENITOURINARY: ANY NEW CHANGE IN BLADDER CONTROL? NO . NEUROLOGY: NEW ONSET DIZZINESS OR NEUROLOGICAL CHANGES NOT MENTIONED NO . NEW NUMBNESS OR PAIN PATTERNS NOT MENTIONED AND PERTINENT TO TODAY'S VISIT NO . CARDIOLOGY: NEW CHEST PRESSURE NO . PATIENT DENIES NO . RESPIRATORY: UNEXPLAINABLE COUGH NO . NEW SHORTNESS OF BREATH NO . VITAL SIGNS WT 318 LBS, HT 63 IN, BMI 56.33 INDEX, BP 138/70 MM HG, HR 63 /MIN, RR 18 /MIN, TEMP 96.5 F, OXYGEN SAT % 97%, SAFE IN ENV? (Y/N) YEST.CHRISTINA JAUREGUI. EXAMINATION GENERAL EXAMINATION: GENERAL AWAKE,ALERT ,PLEAASANT . PSYCH AFFECT NORMAL . LUNGS: LUNG SMITH ARE CLEAR TO AUSCULTATION BILATERALLY. GOOD MOVEMENT OF AIR . HEART: S1, S2 IN A REGULAR RATE AND RHYTHM. NO SIGNIFICANT MURMURS, RUBS OR GALLOPS NOTED . MUSCULOSKELETAL: MUSCLE STRENGTH TESTING 4/5 BILATERAL LOWER EXTREMITIES. LUMBAR:SPECIFIC POINT TENDERNESS NOTED OVER L4-5, L5-S1 LUMBAR FACETS. PAIN IS AGGRAVATED IN THIS REGION WITH FACET LOADING.. DIAGNOSTIC TESTS REVIEWEDMRI L/S SPINE-2O21. ASSESSMENTS SPONDYLOSIS WITHOUT MYELOPATHY OR RADICULOPATHY, LUMBOSACRAL REGION - M47.817 (PRIMARY) TREATMENT SPONDYLOSIS WITHOUT MYELOPATHY OR RADICULOPATHY, LUMBOSACRAL REGION REFILL LYRICA CAPSULE, 200 MG, 1 CAPSULE, ORALLY, BID MDD2, 30 DAYS, 60, REFILLS 5 NOTES: BILATERAL THERAPEUTIC LUMBAR FACET BLOCK L4-5,L5-S1 PRINTED AND REVIEWED PRE PROCEDURE INFORMATION WITH PATIENT MORIAH JAUREGUI. PROCEDURE CODES FA211 ESTABILISHED PATIENT [facility] FACILITY CHARGE DISPOSITION & COMMUNICATION FOLLOW UP POST PROCEDURE (REASON: BILATERAL THERAPEUTIC LUMBAR FACET BLOCK L4-5,L5-S1) ELECTRONICALLY SIGNED BY AMANDA JOSE ON 08/30/2020 AT 09:47 AM EDT DISCLAIMER : THIS IS A VISIT SUMMARY EXTRACTED FROM THE [employer] CHART. IT IS NOT A COPY OF THE [employer] PROGRESS NOTE. OTTO
== END ==
LOC: M PAIN 13:45
PROVIDERS: ATTEND Nurse Practitioner Family
DX: M47.817 Spondylosis without myelopathy or radiculopathy, lumbosacral region (principal); G89.29 Other chronic pain; M79.7 Fibromyalgia; G43.909 Migraine, unspecified, not intractable, without status migrainosus; J45.909 Unspecified asthma, uncomplicated; G47.33 Obstructive sleep apnea (adult) (pediatric); E55.9 Vitamin D deficiency, unspecified; Z86.59 Personal history of other mental and behavioral disorders; Z87.891 Personal history of nicotine dependence; Z98.84 Bariatric surgery status; Z88.0 Allergy status to penicillin; E66.01 Morbid (severe) obesity due to excess calories; Z68.43 Body mass index [BMI] 50.0-59.9, adult; Z79.899 Other long term (current) drug therapy

== ENCOUNTER → 2020-10-02 | Outpatient (CLI) | payer MEDICARE, OTHER | LOC: M LABSMTC 10:46 | PROVIDERS: ATTEND Anesthesiology | DX: Z20.828 Contact with and (suspected) exposure to other viral communicable diseases (principal); Z11.59 Encounter for screening for other viral diseases ==

== ENCOUNTER → 2020-10-07 | Outpatient (CLI) | payer MEDICARE, OTHER ==
[~2020-10-07] MED LIST changes: +BUPIVACAINE HCL 0.25% 30ML VIAL As Ordered ONE; +ISOVUE-M 300 61% 15ML VIAL As Ordered ONE; +LIDOCAINE 1% SDV 30ML VIAL As Ordered ONE; +TRIAMCINOLONE ACETONIDE SUSP 40 MG/ML VIAL (J3301) As Ordered ONE; +diazePAM 5MG TABLET As Ordered ONE; +oxyCODONE 5MG TAB As Ordered ONE
--- NOTE | 2020-10-07 10:45 | REP ---
INDICATION: BILATERAL THERAPEUTIC LUMBAR FACET BLOCK. COMPARISON: None. TECHNIQUE: For C-arm views lower lumbar spine. FINDINGS: [place] are seen along the lower lumbar facet joints. A small amount of contrast is injected. IMPRESSION: 42 seconds of fluoroscopy time was utilized. <Electronically signed by Maurice Riojas > 10/07/20 1049
--- NOTE | 2020-10-09 01:59 | ECWPNPC ---
PATIENT NAME: LOY QUINN : 1960 GENDER: FEMALE VISIT DATE: 10/07/2020 DISCHARGE DATE: 10/07/20 1013 VISIT LOCKED DATE TIME: PHYSICIAN: MAI SMILEY MD PHYSICIAN PAGER NO: ACTIVE RESOURCE: MAI SMILEY MD REASON FOR APPOINTMENT 1. BILATERAL THERAPEUTIC LUMBAR FACET BLOCK L4-L5,L5-S1 HISTORY OF PRESENT ILLNESS GENERAL: -. FALL RISK SCREENING: SCREENING ONE FALL DID NOT SEEK MEDICAL ATTENTION.. PAIN SCREENING: PATIENT HAS A COMPLAINT OF ACUTE OR CHRONIC PAIN :YES LOCATION OF PAIN:LOW BACK, LEG(S) INTENSITY OF PAIN (SCALE OF 1 TO 10):8 WHAT DOES YOUR PAIN FEEL LIKE:ACHING, BURNING, THROBBING, SHOOTING DURATION:CONTINOUS, CONSTANT, ALL DAY, AWAKENS FROM SLEEP PAIN IS INCREASED BY:ACTIVITIES, PROLONGED STANDING PAIN IS DECREASED BY:USE OF PAIN MEDICATIONS, OTHERS LAYING DOWN AND ICE AND HEAT PLAN/GOALS/TREATMENT/INTERVENTION/FOLLOW UP:SEE PLAN NURSING NOTE: -. PAIN CENTER INTAKE QUESTIONS: DO YOU HAVE A HISTORY OF MRSA? :NO DO YOU TAKE A BLOOD THINNERS? :NO DO YOU HAVE ANY BLEEDING DISORDERS? :NO ANY NEW NUMBNESS OR WEAKNESS IN YOUR LEGS OR ARMS? :NO ANY PACEMAKER,DEFIBRILLATOR, OR DORSAL COLUMN STIMULATOR? :NO DO YOU HAVE ANY RASHES OR OPEN SORES? :NO ARE YOU ALLERGIC TO IV DYE? :NO ARE YOU DIABETIC? :NO ANY NEW PROBLEMS WITH YOUR MEDICATIONS? :NO HAVE YOU RECEIVED A VACCINE IN THE PAST 30 DAYS? :YES IF SO WHAT VACCINE AND WHEN? 2ND COVID 09/13/20. DO YOU PLAN TO RECEIVE A VACCINE IN THE NEXT 21 DAYS? :NO DO YOU TAKE ANY IMMUNOSUPPRESSIVE MEDICATIONS? :NO ANY HISTORY OF SEIZURES? :NO ANY HISTORY OF CARDIAC ISSUES OR EVENTS? :NO DO YOU HAVE ANY KIDNEY OR LIVER DISEASE? :NO DO YOU HAVE SLEEP APNEA? :YES DO YOU WEAR A CPAP?YES ANY RECENT HEAD INJURY? :NO DO YOU HAVE ANY NEW INFECTIONS? :NO IS THERE A CHANCE YOU COULD BE ? :NO ARE YOU BREAST FEEDING? :NO WHEN DID YOU LAST EAT? : 10/06/20 2100 WHEN DID YOU LAST DRINK? : 7584 WHAT DID YOU LAST DRINK? : WATER NAME OF PERSON DRIVING YOU HOME? : CORBIN () DO YOU HAVE ANY OTHER QUESTIONS OR CONCERNS? : NO CURRENT MEDICATIONS TAKING CALCIUM CITRATE 1040 MG TABLET 1 TABLET ORALLY TWICE A DAY TAKING POTASSIUM 99 MG TABLET 1 TABLET ORALLY ONCE A DAY TAKING VITAMIN C 500 MG TABLET CHEWABLE 1 TABLET ORALLY ONCE A DAY TAKING BIOTIN 5 MG CAPSULE 2 TABLET ORALLY ONCE A DAY TAKING VITAMIN B12 1000 TABLET 1 TABLET ORALLY ONCE A DAY TAKING MULTIVITAL TABLET 2 TAB(S) ORALLY ONCE A DAY TAKING MAGNESIUM OXIDE 500 MG TABLET 2 TABLETS ORALLY BEFORE BEDTIME TAKING PROBIOTIC - CAPSULE 1 TAB ORALLY DAILY TAKING FERROUS GLUCONATE 324 (38 FE) MG TABLET 2 TABS ORALLY DAILY TAKING TOPIRAMATE 100 MG TABLET TAKE ONE AND ONE HALF TABLETS BY MOUTH AT BEDTIME ORAL DAILY TAKING LEVOTHYROXINE SODIUM 100 MCG TABLET 4 TABLETS ORALLY EVERYDAY TAKING DRISDOL 59673 UNIT CAPSULE 1 CAPSULE ORALLY TWICE A WEEK ON SUNDAY AND TAKING ONDANSETRON HCL 4 MG TABLET 1 TABLET ORALLY EVERY 8 HOURS NEEDED FOR MIGRAINE TAKING MAY HAVE - - 5-HTP 100 MG, 2 TABLETS ORALLY DAILY, NOTES: 10/06/20 AM TAKING AMLACTIN 12 % LOTION 1 APPLICATION EXTERNALLY TWICE A DAY NEEDED TAKING VITAMIN D3 50 MCG (2000 UT) TABLET 3 TABLETS ORALLY ONCE A DAY TAKING FIBER - CAPSULE 2 CAPSULES ORALLY DAILY TAKING MELATONIN 5 MG TABLET 4 TABLETS IN THE EVENING ORALLY BEFORE BEDTIME TAKING OMEPRAZOLE 40 MG CAPSULE DELAYED RELEASE 1 CAPSULE ORALLY BEFORE BEDTIME TAKING SUMATRIPTAN SUCCINATE 50 MG TABLET 1 TABLET AT LEAST 2 HOURS BETWEEN DOSES NEEDED ORALLY TWICE A DAY NEEDED TAKING VITAMIN E 400 UNIT CAPSULE 2 CAPSULES ORALLY BEFORE BEDTIME TAKING ZINC 50 MG TABLET 2 TABLETS ORALLY ONCE A DAY TAKING MOMETASONE FUROATE 0.1 % OINTMENT 1 APPLICATION TO AFFECTED AREA EXTERNALLY TO RASH ON LEGS ONCE A DAY NEEDED TAKING WELLBUTRIN SR 150 MG TABLET EXTENDED RELEASE 12 HOUR 1 TABLET ORALLY TWICE A DAY TAKING HYDROXYZINE HCL 25 MG TABLET 1 -2 TABLETS ORALLY EVERY 8 HRS NEEDED FOR ITCHING, MDD=6 TAKING VENTOLIN HFA 108 (90 BASE) MCG/ACT AEROSOL SOLUTION 2 PUFFS NEEDED INHALATION EVERY 4-6 HRS PRN SOB TAKING LEVOCETIRIZINE DIHYDROCHLORIDE 5 MG TABLET 1 TABLET IN THE EVENING ORALLY ONCE A DAY TAKING OLOPATADINE HCL 0.2 % SOLUTION 1 DROP INTO AFFECTED EYE OPHTHALMIC BID TAKING OXYBUTYNIN CHLORIDE ER 10 MG TABLET EXTENDED RELEASE 24 HOUR 1 TABLET ORALLY BEFORE BEDTIME TAKING LYRICA 200 MG CAPSULE 1 CAPSULE ORALLY BID MDD2, NOTES: 10/06/20 PM NOT-TAKING VALIUM 5 MG TABLET 1 ATB ORALLY 1/2 HR PRE PROCEDURE MDD1 MEDICATION LIST REVIEWED AND RECONCILED WITH THE PATIENT PAST MEDICAL HISTORY DEPRESSION WITH ANXIETY FIBROMYALGIA--WENT TO PAIN CLINIC FOR TPI LAST 05/13, REFERRED AGAIN 06/16 NERVE PAIN MIGRAINES HYPERLIPIDEMIA ASTHMA VINITA MORBID OBESITY ARTHRITIS KNEES, BACK COLLAGENOUS COLITIS ON BX 10/08 FAINTING SPELLS SINCE HEAD INJURY ON 02/27/17 JEFF EN Y GASTRIC BYPASS SURGERY 11/03/2013 ENLARGED THYROID--US 11/12, SIGNIF INC IN SIZE C/W PRIOR08/09; + THYROID AB; ENT REFERRAL 02/12-03/14,SHE WAS TX FOR REFLUX. HAD ESOPHAGRAM SHOWED MASS EFFECT ON ESOPHAGUS FROM THYROID; CT NECK SHOWED IMPINGEMENT OF THYROID ON ESOPAGUS. 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 VERTIGO STRESS INCONTINENCE HYPOCALCEMIA VITAMIN D DEFICIENCY ABNORMAL GAIT ALLERGIES PENICILLIN (FOR ALLERGIES USE ONLY): ANAPHYLAXIS - ALLERGY SOCIAL HISTORY GENERAL: TOBACCO USE ARE YOU A:FORMER SMOKER HOW LONG HAS IT BEEN SINCE YOU LAST SMOKED?> 10 YEARS LATEX QUESTIONNAIRE LATEX ALLERGY : HAVE YOU EVER DEVELOPED ANY TYPE OF REACTION AFTER HANDLING LATEX PRODUCTS SUCH RUBBER GLOVES, CONDOMS, DIAPHRAGMS, BALLOONS, SOCKS, OR UNDERWEAR?NO LATEX ALLERGY : HAVE YOU EVER DEVELOPED ANY TYPE OF REACTION DURING OR AFTER DENTAL APPOINTMENT, VAGINAL/RECTAL EXAMINATION, SURGICAL PROCEDURE, OR ANY OTHER EXPOSURE?NO LATEX RISK : HAVE YOU EVER HAD ANY DIFFICULTY BREATHING OR HIVES AFTER EATING OR HANDLING ANY FRUITS, OR VEGETABLES; SUCH KIWI, BANANAS, STONE FRUITS, OR CHESTNUTSNO LATEX RISK : DO YOU HAVE A PREVIOUS PERSONAL HISTORY OF MORE THAN NINE SURGERIES, SPINA BIFIDA, OR REPEATED CATHERIZATIONS? YES - PLEASE INDICATE : > 9 SURGERIES LATEX RISK : ARE YOU FREQUENTLY EXPOSED TO LATEX PRODUCTS IN YOUR OCCUPATION?NO DATE ASKED : 10/05/2020 ALCOHOL USE: NO. ALCOHOL SCREENING DID YOU HAVE A DRINK CONTAINING ALCOHOL IN THE PAST YEAR?YES HOW OFTEN DID YOU HAVE SIX OR MORE DRINKS ON ONE OCCASION IN THE PAST YEAR?NEVER (0 POINTS) HOW MANY DRINKS DID YOU HAVE ON A TYPICAL DAY WHEN YOU WERE DRINKING IN THE PAST YEAR?1 OR 2 (0 POINTS) HOW OFTEN DID YOU HAVE A DRINK CONTAINING ALCOHOL IN THE PAST YEAR?MONTHLY OR LESS (1 POINT) POINTS1 INTERPRETATIONNEGATIVE RECREATIONAL DRUG USE DRUG USE?NO CAFFEINE CAFFEINE USE?YES MANDAEN [id number] DENOMINATIONAL LANGUAGE LANGUAGES SPOKEN:ROMANSH EDUCATION LEVEL OF EDUCATION:COLLEGE LEARNING BARRIERS / SPECIAL NEEDS CHANGE FROM LAST VISIT?NO BARRIERS TO LEARNING?NO HEARING IMPAIRED?NO VISION IMPAIRED?YES COGNITIVELY IMPAIRED?NO :CORRECTIVE LENSES READINESS TO LEARN?YES LEARNING PREFERENCES?NO LEARNING CAPABILITIES PRESENT?YES EMOTIONAL BARRIERS?NO SPECIAL DEVICES?YES :CANE, OTHER NEEDED DUE TO LACK OF LEFT KNEE CAP, ELECTRIC CART FOR SHOPPING NEEDED SASH ASSEMBLER NEEDED?NO DOMESTIC VIOLENCE DO YOU FEEL SAFE IN YOUR ENVIRONMENT?YES OCCUPATION: DISABLED. DIET: NO CONCENTRATED SWEETS., CARBOHYDRATE CONTROLLED, NO ADDED SALT. EXERCISE: DAILY. MARITAL STATUS: . TODAY'S VISIT 10/17/2019, PATIENT DESCRIBES PAIN : ACHING, IT COMES AND GOES, SHARP, STABBING, TENDER, THROBBING, SORE, SHOOTING, OTHER "PINS AND NEEDLES", FROM 0-10, WHAT LEVEL IS YOUR PAIN TODAY? 7, PRECIPITATING FACTORS ACITVITY, EXCESSIVE WALKING OR BENDING, ALLEVIATING FACTORS LYING DOWN, ELEVATING LEGS, BIOFREEZE, IMPACT ON FUNCTION LIMITS HER ON WHAT SHE IS ABLE TO DO. - PFS REFERRAL NEEDED?NO CLERGY REFERRAL NEEDED?NO PUBLIC HEALTH REFERRAL NEEDED?NO HAS THE PATIENT BEEN EDUCATED REGARDING HIS/HER PLAN OF CARE?YES HAS THE PATIENT BEEN EDUCATED REGARDING PAIN, THE RISK FOR PAIN, THE IMPORTANCE OF EFFECTIVE PAIN MANAGEMENT, AND THE PAIN ASSESSMENT PROCESS?YES ADVANCE DIRECTIVE ADVANCE DIRECTIVE DISCUSSED WITH PATIENT:YES PATIENT HAS HCP AND LIVING WILL - ON FILE VITAL SIGNS WT 311.4 LBS, HT 63 IN, BMI 55.16 INDEX, BP 149/67 MM HG, HR 77 /MIN, RR 18 /MIN, TEMP 96.6 F, OXYGEN SAT % 98%, SAFE IN ENV? (Y/N) YES, NA INITIALS TN 08:28, REVIEWED BY: Julia MARISCAL RN. EXAMINATION GENERAL: THE PATIENT IS ALERT, ORIENTED TIMES THREE AND COOPERATIVE. LUNGS ARE CLEAR TO AUSCULTATION. HEART SHOWS REGULAR RHYTHM, NO MURMURS AND NO GALLOPS. ASSESSMENTS SPONDYLOSIS WITHOUT MYELOPATHY OR RADICULOPATHY, LUMBAR REGION - M47.816 (PRIMARY) SPONDYLOSIS WITHOUT MYELOPATHY OR RADICULOPATHY, LUMBOSACRAL REGION - M47.817 TREATMENT SPONDYLOSIS WITHOUT MYELOPATHY OR RADICULOPATHY, LUMBAR REGION [facility] FACET BLOCK (PAIN)[id number] SALINE LOCKDIMITRIS RAMIREZ 10/07/2020 9:02:43 AM > 22G SALINE LOCK IN RIGHT HAND ESTABLISHED ON FIRST ATTEMPT, POSITIVE FLASH, POSITIVE FLUSH, NO S/S OF INFILTRATION, PATIENT TOLERATED PROCEDURE WELL. SONY MARISCAL Hailey 10/07/2020 10:03:53 AM > SL REMOVED, SITE CLEAR, CATHETER TIP INTACT. MEDICATION: VALIUM TAB 10MG ORALLY (DIAZEPAM)DIMITRIS RAMIREZ 10/07/2020 8:52:49 AM > VERIFIED. SONY MARISCAL Hailey 10/07/2020 8:56:27 AM > ADMINISTERED. MEDICATION: OXYCODONE HCL TAB 10MG ORALLYBREANNTACHO HOWEISSA 10/07/2020 8:53:04 AM > VERIFIED. EDLUSONY Hailey 10/07/2020 8:56:47 AM > ADMINISTERED. COMPLETION OF PROCEDURAL VISIT WHEN MEETS CRITERIASONY MARISCAL Hailey 10/07/2020 10:04:13 AM > CRITERIA MET. OTHERS NOTES: 10/05/20 1740 PAT COMPLETED. Fletcher RAMIREZ CIGARETTE MAKING MACHINE OPERATOR. PROCEDURES PAIN NURSING RECORD PROCEDURE IN ROOM 0922, PHYSICIAN IN ROOM 0934, START 0939, FINISH 0946, PHYSICIAN OUT OF ROOM 0948, OUT OF ROOM 0956, ECG NORMAL SINUS, PATIENT SHIELDED YES, SAFETY STRAP YES, PREP CHLOROPREP Julia MARISCAL RN, DRESSING TEGADERM DR. SMILEY LOC: SONY MARISCAL Hailey 10/07/2020 9:40:57 AM > , 1. ALERT, ORIENTED RESP: EDLUSONY Hailey 10/07/2020 9:41:02 AM > , 1. REGULAR, NO DYSPNEA COLOR: EDLUSONY Hailey 10/07/2020 9:41:05 AM > , 1. PINK SKIN: LOIDASONY Hailey 10/07/2020 9:41:08 AM > , 1. WARM, DRY POSITION: LOIDASONY L 10/07/2020 9:41:11 AM > , 1. PRONE VITALS: ELENO LUA 10/07/2020 9:11:54 AM > HR82 02 95% BP 137/79 SONY MARISCAL 10/07/2020 9:27:23 AM > 155/89, 79, 18, 98% SONY MARISCAL 10/07/2020 9:43:42 AM > 149/87, 73, 16, 94% SONY MARISCAL 10/07/2020 9:49:12 AM > 155/90, 72, 16, 96% SONY MARISCAL 10/07/2020 9:57:27 AM > 143/82, 86, 16, 96% COMPLETION OF PROCEDURE APPOINTMENT: POST PAIN 7, DRESSING SITE DRY AND INTACT, IV DISCONTINUED, SITE CLEAR, CATHETER INTACT, GAIT STEADY, TEACHING COMPLETED, PATIENT ACKNOWLEDGES UNDERSTANDING YES, PROCEDURE APPOINTMENT COMPLETED AT 1010 BY: Julia MARISCAL RN PN LUMBAR FACET BLOCK THERAPEUTIC PRE PROCEDURE DIAGNOSIS LUMBAR SPONDYLOSIS, LUMBOSACRAL SPONDYLOSIS POST PROCEDURE DIAGNOSIS LUMBAR SPONDYLOSIS, LUMBOSACRAL SPONDYLOSIS PROCEDURE BILATERAL L4-L5 AND BILATERAL L5-S1 LUMBAR FACET THERAPEUTIC BLOCK SURGEON DR. MAI SMILEY EXTERMINATION SUPERVISOR NONE ANESTHESIA LOCAL PRE PROCEDURE NOTE THE PATIENT HAS A HISTORY OF CHRONIC LOW BACK PAIN. I EVALUATED THE PATIENT AND REVIEWED THE CHART. I WENT OVER THE RISKS, ALTERNATIVES, AND BENEFITS ASSOCIATED WITH THIS PROCEDURE. THE PATIENT WOULD LIKE TO PROCEED AND GIVES CONSENT TO PERFORM THE PROCEDURE. THE PATIENT DENIES UNEXPLAINABLE WEIGHT LOSS, FEVER, CHILLS, OR NEW CHANGES IN URINARY OR BOWEL CONTROL. THE PATIENT IS COVID-19 NEGATIVE DESCRIPTION OF PROCEDURE THE PATIENT WAS BROUGHT TO THE PROCEDURE ROOM AND PLACED IN THE PRONE POSITION. THE LUMBOSACRAL AREA WAS CLEANED WITH CHLORAPREP SOLUTION AND DRAPED ASEPTICALLY. THE PROCEDURE WAS DONE UNDER STERILE CONDITIONS. A TIMEOUT WAS PERFORMED WHERE THE CONSENTED SITE WAS VERIFIED WITH EVERYONE IN THE ROOM. UNDER FLUOROSCOPIC GUIDANCE, THE TARGET POINT WAS SELECTED AT THE RIGHT AND LEFT L4-L5 AND RIGHT AND LEFT L5-S1 FACET JOINTS. TARGET POINT WAS SELECTED AFTER LATERAL ROTATION AND TILT OF THE MAGNIFIER OF THE C-ARM. I CONFIRMED AGAIN THE SITE OF TARGET. LIDOCAINE 0.5% WAS USED TO NUMB THE SKIN AND THE SUBCUTANEOUS TISSUE BELOW IT. SPINAL NEEDLES, 22-GAUGE, WERE ADVANCED UNDER FLUOROSCOPIC GUIDANCE AND FOLLOWING PATIENT FEEDBACK UNTIL THE TARGETS WERE TOUCHED. THE POSITION OF THE NEEDLES WAS VERIFIED WITH AP AND LATERAL VIEWS. AFTER PROPER POSITION OF THE NEEDLES WAS ACHIEVED, ISOVUE-M DYE 30%, 0.1 ML, WAS INJECTED SHOWING ADEQUATE SPREAD OF THE DYE. KENALOG 10 MG WAS INJECTED AT EACH SITE. THEN, A SOLUTION OF 1.0 ML OF BUPIVACAINE 0.125% OF WAS USED TO FLUSH EACH SITE. THE MEDICATION WAS VERIFIED WITH THE NURSE. THERE WAS NO EVIDENCE OF BLOOD, PARESTHESIA OR CEREBROSPINAL FLUID DURING THE PROCEDURE. THE PATIENT WAS SENT TO THE RECOVERY ROOM. THE PATIENT WAS MOVING THE EXTREMITIES AND DOING WELL. THERE WERE NO COMPLICATIONS DURING THE PROCEDURE. ESTIMATED BLOOD LOSS WAS LESS THAN 5 ML. FLUOROSCOPY TIME WAS 41 SECONDS POST PROCEDURE NOTE DEPENDING ON THE RESULTS, CONSIDER DOING DIAGNOSTIC TESTS TO CONSIDER RADIOFREQUENCY. THE PATIENT WILL BE SEEN IN A FOLLOW UP IN THE NEXT FEW WEEKS. I AM LOOKING FOR LONG LASTING RELIEF FOR THE PATIENT WITH THIS INTERVENTION. INSTRUCTIONS WERE GIVEN, QUESTIONS WERE ANSWERED, AND THE PATIENT EXPRESSED UNDERSTANDING AND AGREES WITH THE PLAN. I, FE FRENCH, DOCUMENTED THE ABOVE INFORMATION ACTING A SCRIBE FOR DR. SMILEY. I HAVE REVIEWED THE ABOVE DOCUMENT, WRITTEN BY FE FRENCH, SIGN CARPENTER, AND I VERIFY THAT IT IS ACCURATE PROCEDURE CODES 78889 INJ PARAVERT F JNT L/S 1 LEV, MODIFIERS: 50 [id number] INJ PARAVERT F JNT L/S 2 LEV, MODIFIERS: 50 DISPOSITION & COMMUNICATION FOLLOW UP FOLLOW UP WITH MANAGER WHOLESALE (REASON: POST BILATERAL THERAPEUTIC LUMBAR FACET BLOCK L4-L5, L5-S1) ELECTRONICALLY SIGNED BY MAI SMILEY MD, MD ON 10/08/2020 AT 04:01 PM EDT DISCLAIMER : THIS IS A VISIT SUMMARY EXTRACTED FROM THE [employer] CHART. IT IS NOT A COPY OF THE [employer] PROGRESS NOTE. MTDD
== END ==
LOC: M PAIN 08:30
PROVIDERS: ATTEND Anesthesiology
DX: M47.816 Spondylosis without myelopathy or radiculopathy, lumbar region (principal); M47.817 Spondylosis without myelopathy or radiculopathy, lumbosacral region; M79.7 Fibromyalgia; G43.909 Migraine, unspecified, not intractable, without status migrainosus; J45.909 Unspecified asthma, uncomplicated; G47.33 Obstructive sleep apnea (adult) (pediatric); E55.9 Vitamin D deficiency, unspecified; Z86.59 Personal history of other mental and behavioral disorders; Z98.84 Bariatric surgery status; Z87.891 Personal history of nicotine dependence; Z88.0 Allergy status to penicillin; E66.01 Morbid (severe) obesity due to excess calories; Z68.43 Body mass index [BMI] 50.0-59.9, adult; Z79.899 Other long term (current) drug therapy
CPT/HCPCS: 64493; 64494; J3301; Q9967

== ENCOUNTER → 2020-10-20 | Outpatient (CLI) | payer MEDICARE, OTHER ==
[~2020-10-20] MED LIST changes: -BUPIVACAINE HCL 0.25% 30ML VIAL As Ordered ONE; -ISOVUE-M 300 61% 15ML VIAL As Ordered ONE; -LIDOCAINE 1% SDV 30ML VIAL As Ordered ONE; -TRIAMCINOLONE ACETONIDE SUSP 40 MG/ML VIAL (J3301) As Ordered ONE; -diazePAM 5MG TABLET As Ordered ONE; -oxyCODONE 5MG TAB As Ordered ONE
--- NOTE | 2020-10-21 04:27 | ECWPNPC ---
PATIENT NAME: LOY QUINN : 1960 GENDER: FEMALE VISIT DATE: 10/20/2020 DISCHARGE DATE: 10/20/20 1013 VISIT LOCKED DATE TIME: PHYSICIAN: CLEOPATRA COPELAND PHYSICIAN PAGER NO: ACTIVE RESOURCE: CLEOPATRA COPELAND REASON FOR APPOINTMENT 1. BILATERAL THERAPEUTIC LUMBAR FACET BLOCK L4-5,L5-S1 HISTORY OF PRESENT ILLNESS GENERAL: HERE FOR POST PROCEDURE F/U.HAD BILATERAL LUMBAR THERAPEUTIC FACET BLOCK ON 10/07/2020.REPORTING MARKED REDUCTION IN PAIN THAT CONTINUES TODAY.REPORTING IMPROVED ACTIVITY TOLERANCE IE WALKING POST PROCEDURE.IS WALKING ON A REGULAR BASIS AND IS ACTIVELY LOSING WEIGHT. -. FALL RISK SCREENING: SCREENING : NO FALLS REPORTED IN THE LAST YEAR. PAIN SCREENING: PATIENT HAS A COMPLAINT OF ACUTE OR CHRONIC PAIN :YES LOCATION OF PAIN:LOW BACK INTENSITY OF PAIN (SCALE OF 1 TO 10):5 WHAT DOES YOUR PAIN FEEL LIKE:ACHING, CONTINOUS DURATION:ONLY WITH SPECIFIC ACTIVITIES, INTERMITTENT PAIN IS INCREASED BY:ACTIVITIES, PROLONGED STANDING PAIN IS DECREASED BY:USE OF PAIN MEDICATIONS, SITTING NURSING NOTE: -. PAIN CENTER INTAKE QUESTIONS: DO YOU HAVE A HISTORY OF MRSA? :NO DO YOU TAKE A BLOOD THINNERS? :NO DO YOU HAVE ANY BLEEDING DISORDERS? :NO ANY NEW NUMBNESS OR WEAKNESS IN YOUR LEGS OR ARMS? :NO ANY PACEMAKER,DEFIBRILLATOR, OR DORSAL COLUMN STIMULATOR? :NO DO YOU HAVE ANY RASHES OR OPEN SORES? :NO ARE YOU ALLERGIC TO IV DYE? :NO ARE YOU DIABETIC? :NO ANY NEW PROBLEMS WITH YOUR MEDICATIONS? :NO HAVE YOU RECEIVED A VACCINE IN THE PAST 30 DAYS? :YES IF SO WHAT VACCINE AND WHEN? 1ST COVID 08/13/2020 DO YOU PLAN TO RECEIVE A VACCINE IN THE NEXT 21 DAYS? :YES 2ND COVID 09/13/2020 DO YOU NEED ANY PRESCRIPTION? :NO DO YOU TAKE ANY IMMUNOSUPPRESSIVE MEDICATIONS? :NO IS THERE A CHANCE YOU COULD BE ? :NO ARE YOU BREAST FEEDING? :NO CURRENT MEDICATIONS TAKING CALCIUM CITRATE 1040 MG TABLET 1 TABLET ORALLY TWICE A DAY TAKING POTASSIUM 99 MG TABLET 1 TABLET ORALLY ONCE A DAY TAKING VITAMIN C 500 MG TABLET CHEWABLE 1 TABLET ORALLY ONCE A DAY TAKING BIOTIN 5 MG CAPSULE 2 TABLET ORALLY ONCE A DAY TAKING VITAMIN B12 1000 TABLET 1 TABLET ORALLY ONCE A DAY TAKING MULTIVITAL TABLET 2 TAB(S) ORALLY ONCE A DAY TAKING MAGNESIUM OXIDE 500 MG TABLET 2 TABLETS ORALLY BEFORE BEDTIME TAKING PROBIOTIC - CAPSULE 1 TAB ORALLY DAILY TAKING FERROUS GLUCONATE 324 (38 FE) MG TABLET 2 TABS ORALLY DAILY TAKING TOPIRAMATE 100 MG TABLET TAKE ONE AND ONE HALF TABLETS BY MOUTH AT BEDTIME ORAL DAILY TAKING LEVOTHYROXINE SODIUM 100 MCG TABLET 4 TABLETS ORALLY EVERYDAY TAKING DRISDOL 34749 UNIT CAPSULE 1 CAPSULE ORALLY TWICE A WEEK ON SUNDAY AND TAKING ONDANSETRON HCL 4 MG TABLET 1 TABLET ORALLY EVERY 8 HOURS NEEDED FOR MIGRAINE TAKING MAY HAVE - - 5-HTP 100 MG, 2 TABLETS ORALLY DAILY TAKING AMLACTIN 12 % LOTION 1 APPLICATION EXTERNALLY TWICE A DAY NEEDED TAKING VITAMIN D3 50 MCG (2000 UT) TABLET 3 TABLETS ORALLY ONCE A DAY TAKING FIBER - CAPSULE 2 CAPSULES ORALLY DAILY TAKING MELATONIN 5 MG TABLET 4 TABLETS IN THE EVENING ORALLY BEFORE BEDTIME TAKING OMEPRAZOLE 40 MG CAPSULE DELAYED RELEASE 1 CAPSULE ORALLY BEFORE BEDTIME TAKING SUMATRIPTAN SUCCINATE 50 MG TABLET 1 TABLET AT LEAST 2 HOURS BETWEEN DOSES NEEDED ORALLY TWICE A DAY NEEDED TAKING VITAMIN E 400 UNIT CAPSULE 2 CAPSULES ORALLY BEFORE BEDTIME TAKING ZINC 50 MG TABLET 2 TABLETS ORALLY ONCE A DAY TAKING MOMETASONE FUROATE 0.1 % OINTMENT 1 APPLICATION TO AFFECTED AREA EXTERNALLY TO RASH ON LEGS ONCE A DAY NEEDED TAKING WELLBUTRIN SR 150 MG TABLET EXTENDED RELEASE 12 HOUR 1 TABLET ORALLY TWICE A DAY TAKING HYDROXYZINE HCL 25 MG TABLET 1 -2 TABLETS ORALLY EVERY 8 HRS NEEDED FOR ITCHING, MDD=6 TAKING VENTOLIN HFA 108 (90 BASE) MCG/ACT AEROSOL SOLUTION 2 PUFFS NEEDED INHALATION EVERY 4-6 HRS PRN SOB TAKING LEVOCETIRIZINE DIHYDROCHLORIDE 5 MG TABLET 1 TABLET IN THE EVENING ORALLY ONCE A DAY TAKING OLOPATADINE HCL 0.2 % SOLUTION 1 DROP INTO AFFECTED EYE OPHTHALMIC BID TAKING OXYBUTYNIN CHLORIDE ER 10 MG TABLET EXTENDED RELEASE 24 HOUR 1 TABLET ORALLY BEFORE BEDTIME TAKING LYRICA 200 MG CAPSULE 1 CAPSULE ORALLY BID MDD2 NOT-TAKING VALIUM 5 MG TABLET 1 ATB ORALLY 1/2 HR PRE PROCEDURE MDD1 MEDICATION LIST REVIEWED AND RECONCILED WITH THE PATIENT PAST MEDICAL HISTORY DEPRESSION WITH ANXIETY FIBROMYALGIA--WENT TO PAIN CLINIC FOR TPI LAST 05/13, REFERRED AGAIN 06/16 NERVE PAIN MIGRAINES HYPERLIPIDEMIA ASTHMA VINITA MORBID OBESITY ARTHRITIS KNEES, BACK COLLAGENOUS COLITIS ON 10/08 FAINTING SPELLS SINCE HEAD INJURY ON 02/27/17 JEFF EN Y GASTRIC BYPASS SURGERY 11/03/2013 ENLARGED THYROID--US 11/12, SIGNIF INC IN SIZE C/W PRIOR08/09; + THYROID AB; ENT REFERRAL 02/12-03/14,SHE WAS TX FOR REFLUX. HAD ESOPHAGRAM SHOWED MASS EFFECT ON ESOPHAGUS FROM THYROID; CT NECK SHOWED IMPINGEMENT OF THYROID ON ESOPAGUS. 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 VERTIGO STRESS INCONTINENCE HYPOCALCEMIA VITAMIN D DEFICIENCY ABNORMAL GAIT ALLERGIES PENICILLIN (FOR ALLERGIES USE ONLY): ANAPHYLAXIS - ALLERGY SOCIAL HISTORY GENERAL: TOBACCO USE ARE YOU A:FORMER SMOKER 41 YEARS AGO 1984 HOW LONG HAS IT BEEN SINCE YOU LAST SMOKED?> 10 YEARS LATEX QUESTIONNAIRE LATEX ALLERGY : HAVE YOU EVER DEVELOPED ANY TYPE OF REACTION AFTER HANDLING LATEX PRODUCTS SUCH RUBBER GLOVES, CONDOMS, DIAPHRAGMS, BALLOONS, SOCKS, OR UNDERWEAR?NO LATEX ALLERGY : HAVE YOU EVER DEVELOPED ANY TYPE OF REACTION DURING OR AFTER DENTAL APPOINTMENT, VAGINAL/RECTAL EXAMINATION, SURGICAL PROCEDURE, OR ANY OTHER EXPOSURE?NO LATEX RISK : HAVE YOU EVER HAD ANY DIFFICULTY BREATHING OR HIVES AFTER EATING OR HANDLING ANY FRUITS, OR VEGETABLES; SUCH KIWI, BANANAS, STONE FRUITS, OR CHESTNUTSNO LATEX RISK : DO YOU HAVE A PREVIOUS PERSONAL HISTORY OF MORE THAN NINE SURGERIES, SPINA BIFIDA, OR REPEATED CATHERIZATIONS? YES - PLEASE INDICATE : > 9 SURGERIES LATEX RISK : ARE YOU FREQUENTLY EXPOSED TO LATEX PRODUCTS IN YOUR OCCUPATION?NO DATE ASKED : 10/20/2020 ALCOHOL USE: NO. ALCOHOL SCREENING DID YOU HAVE A DRINK CONTAINING ALCOHOL IN THE PAST YEAR?YES HOW OFTEN DID YOU HAVE SIX OR MORE DRINKS ON ONE OCCASION IN THE PAST YEAR?NEVER (0 POINTS) HOW MANY DRINKS DID YOU HAVE ON A TYPICAL DAY WHEN YOU WERE DRINKING IN THE PAST YEAR?1 OR 2 (0 POINTS) HOW OFTEN DID YOU HAVE A DRINK CONTAINING ALCOHOL IN THE PAST YEAR?MONTHLY OR LESS (1 POINT) POINTS1 INTERPRETATIONNEGATIVE RECREATIONAL DRUG USE DRUG USE?NO CAFFEINE CAFFEINE USE?YES CAODAISM [id number] SCIENTOLOGIST LANGUAGE LANGUAGES SPOKEN:HUNGARIAN EDUCATION LEVEL OF EDUCATION:COLLEGE LEARNING BARRIERS / SPECIAL NEEDS CHANGE FROM LAST VISIT?NO BARRIERS TO LEARNING?NO HEARING IMPAIRED?NO VISION IMPAIRED?YES :CORRECTIVE LENSES COGNITIVELY IMPAIRED?NO READINESS TO LEARN?YES LEARNING PREFERENCES?NO LEARNING CAPABILITIES PRESENT?YES EMOTIONAL BARRIERS?NO SPECIAL DEVICES?YES :CANE, OTHER NEEDED DUE TO LACK OF LEFT KNEE CAP, ELECTRIC CART FOR SHOPPING NEEDED DEPUTY SHERIFF CIVIL DIVISION NEEDED?NO DOMESTIC VIOLENCE DO YOU FEEL SAFE IN YOUR ENVIRONMENT?YES OCCUPATION: DISABLED. DIET: NO CONCENTRATED SWEETS., CARBOHYDRATE CONTROLLED, NO ADDED SALT. EXERCISE: DAILY. MARITAL STATUS: . TODAY'S VISIT 10/17/2019, PATIENT DESCRIBES PAIN : ACHING, IT COMES AND GOES, SHARP, STABBING, TENDER, THROBBING, SORE, SHOOTING, OTHER "PINS AND NEEDLES", FROM 0-10, WHAT LEVEL IS YOUR PAIN TODAY? 7, PRECIPITATING FACTORS ACITVITY, EXCESSIVE WALKING OR BENDING, ALLEVIATING FACTORS LYING DOWN, ELEVATING LEGS, BIOFREEZE, IMPACT ON FUNCTION LIMITS HER ON WHAT SHE IS ABLE TO DO. - PFS REFERRAL NEEDED?NO CLERGY REFERRAL NEEDED?NO PUBLIC HEALTH REFERRAL NEEDED?NO HAS THE PATIENT BEEN EDUCATED REGARDING HIS/HER PLAN OF CARE?YES HAS THE PATIENT BEEN EDUCATED REGARDING PAIN, THE RISK FOR PAIN, THE IMPORTANCE OF EFFECTIVE PAIN MANAGEMENT, AND THE PAIN ASSESSMENT PROCESS?YES ADVANCE DIRECTIVE ADVANCE DIRECTIVE DISCUSSED WITH PATIENT:YES PATIENT HAS HCP AND LIVING WILL - ON FILE REVIEW OF SYSTEMS CONSTITUTIONAL: ANY RECENT FEVER NO . CHILLS NO . WEIGHT CHANGE OF UNKNOWN REASONS NO . GASTROENTEROLOGY: NEW UNEXPLAINABLE CHANGES IN BOWEL CONTROL NO . CONSTIPATION NO . GENITOURINARY: ANY NEW CHANGE IN BLADDER CONTROL? NO . NEUROLOGY: NEW ONSET DIZZINESS OR NEUROLOGICAL CHANGES NOT MENTIONED NO . NEW NUMBNESS OR PAIN PATTERNS NOT MENTIONED AND PERTINENT TO TODAY'S VISIT NO . CARDIOLOGY: NEW CHEST PRESSURE NO . PATIENT DENIES NO . RESPIRATORY: UNEXPLAINABLE COUGH NO . NEW SHORTNESS OF BREATH NO . VITAL SIGNS WT 311.2 LBS, HT 63 IN, BMI 55.12 INDEX, BP 145/74 MM HG, HR 69 /MIN, RR 18 /MIN, TEMP 96.3 F, OXYGEN SAT % 98%, SAFE IN ENV? (Y/N) YES, NA INITIALS VA 09:37T.CHRISTINA JAUREGUI. EXAMINATION GENERAL EXAMINATION: GENERALAWAKE,ALERT ,PLEASANT . PSYCHAFFECT NORMAL . LUNGS:LUNG SMITH ARE CLEAR TO AUSCULTATION BILATERALLY. GOOD MOVEMENT OF AIR . HEART:S1, S2 IN A REGULAR RATE AND RHYTHM. NO SIGNIFICANT MURMURS, RUBS OR GALLOPS NOTED . ASSESSMENTS OTHER CHRONIC PAIN - G89.29 (PRIMARY) SPONDYLOSIS WITHOUT MYELOPATHY OR RADICULOPATHY, LUMBAR REGION - M47.816 TREATMENT OTHER CHRONIC PAIN PAIN PROCEDURE LOGDATE OF PROCEDURE1PROCEDURE:BILATERAL THERAPEUTIC LUMBAR FACET BLOCK L4-L5,L5-[id number] OF PRE SEDATEVALIUM 10MG, OXYCODONE 10MGRESULT:MARKED REDUCTION IN PAIN CONTINUES TODAY NOTES: CONTINUE WITH WALKING PROGRAM TO STRENGTHEN LUMBAR PARASPINAL MUSCLES AND IMPROVE MOBILITY. THEY WERE ADVISED THAT THIS WILL IMPROVE WEIGHT LOSS AND ALSO DEPRESSION/FIBROMYALGIA SYMPTOMS. ADVISED TO WALK 10 MINUTES EVERY OTHER DAY ON A FLAT SURFACE. EMPHASIZED THE IMPORTANCE OF DOING THIS CONSISTANTLY AND NOT SPORATICALLY TO AVOID INJURY. PROCEDURE CODES FA211 ESTABILISHED PATIENT [facility] FACILITY CHARGE DISPOSITION & COMMUNICATION FOLLOW UP 3 MONTHS (REASON: LBP/RESPONDS WELL TO LFBT) ELECTRONICALLY SIGNED BY AMANDA JOSE ON 10/20/2020 AT 02:57 PM EDT DISCLAIMER : THIS IS A VISIT SUMMARY EXTRACTED FROM THE [employer] CHART. IT IS NOT A COPY OF THE [employer] PROGRESS NOTE. OTTO
== END ==
LOC: M PAIN 09:30
PROVIDERS: ATTEND Nurse Practitioner Family
DX: M47.816 Spondylosis without myelopathy or radiculopathy, lumbar region (principal); G89.29 Other chronic pain; M79.7 Fibromyalgia; G43.909 Migraine, unspecified, not intractable, without status migrainosus; J45.909 Unspecified asthma, uncomplicated; G47.33 Obstructive sleep apnea (adult) (pediatric); E55.9 Vitamin D deficiency, unspecified; Z98.84 Bariatric surgery status; Z86.59 Personal history of other mental and behavioral disorders; Z87.891 Personal history of nicotine dependence; Z88.0 Allergy status to penicillin; E66.01 Morbid (severe) obesity due to excess calories; Z68.43 Body mass index [BMI] 50.0-59.9, adult; Z79.899 Other long term (current) drug therapy

== ENCOUNTER → 2020-10-27 | Outpatient (CLI) | payer MEDICARE, OTHER ==
[2020-10-27 08:53] LABS: BLOOD UREA NITROGEN 15 MG/DL (7-18); CALCIUM LEVEL 8.3 MG/DL (8.5-10.1); CARBON DIOXIDE LEVEL 25 MEQ/L (21-32); CHLORIDE LEVEL 112 MEQ/L (98-107); CREATININE FOR GFR 0.63 MG/DL (0.55-1.30); FREE T4 1.13 NG/DL (0.76-1.46); GLOMERULAR FILTRATION RATE > 60.0 (>51); GLUCOSE, FASTING 85 MG/DL (70-100); POTASSIUM SERUM 4.2 MEQ/L (3.5-5.1); SODIUM LEVEL 142 MEQ/L (136-145); THYROID STIMULATING HORMONE 0.059 uIU/ML (0.358-3.740)
[2020-10-27 08:56] LABS: TOTAL 25(OH) VITAMIN D 53.6 NG/ML (30.0-100.0)
== END ==
LOC: M LAB 07:34
PROVIDERS: ATTEND Internal Medicine Endocrinology, Diabetes & Metabolism
DX: E83.51 Hypocalcemia (principal); E89.0 Postprocedural hypothyroidism

== ENCOUNTER → 2020-11-10 | Outpatient (CLI) | payer MEDICARE, OTHER ==
--- NOTE | 2020-11-11 09:09 | REP ---
INDICATION: PAPILLARY CARCINOMA. COMPARISON: 10/29/2017. TECHNIQUE: Real-time sonographic evaluation of thyroid bed performed bilaterally. FINDINGS: No thyroid tissue is seen in the thyroid bed bilaterally. There is a 3 x 3 x 2 mm hypoechoic structure anterior to the trachea just to the left of midline, possibly representing a tiny lymph node. No other cystic or solid nodule is seen. IMPRESSION: No evidence of thyroid tissue in the thyroid bed bilaterally. Suspect 3 mm lymph node anterior to the trachea just to the left of midline. <Electronically signed by Maurice Riojas > 11/11/20 0905
== END ==
LOC: M RAD 12:38
PROVIDERS: ATTEND Internal Medicine Endocrinology, Diabetes & Metabolism
DX: C73 Malignant neoplasm of thyroid gland (principal)

== ENCOUNTER → 2020-12-07 | Outpatient (REF) | payer MEDICARE, OTHER ==
[2020-12-07 13:34] LABS: HEMATOCRIT 43.3 % (36.0-47.0); HEMOGLOBIN 13.4 g/dl (12.0-15.5); MEAN CORPUSCULAR HEMOGLOBIN 25.7 pg (27.0-33.0); MEAN CORPUSCULAR HGB CONC 30.9 g/dl (32.0-36.5); MEAN CORPUSCULAR VOLUME 83.1 fl (80.0-96.0); PLATELET COUNT, AUTOMATED 267 10^3/uL (150-450); RED BLOOD COUNT 5.21 10^6/uL (4.00-5.40)
[2020-12-07 13:58] LABS: PERCENT SATURATION 19.1 % (13.2-45.0)
== END ==
LOC: M SFHCADAM 11:11
PROVIDERS: ATTEND Family Medicine
DX: D50.9 Iron deficiency anemia, unspecified (principal)

== ENCOUNTER → 2021-02-11 | Outpatient (REF) | payer MEDICARE, OTHER ==
[2021-02-11 14:27] LABS: BLOOD UREA NITROGEN 20 MG/DL (7-18); CALCIUM LEVEL 8.6 MG/DL (8.5-10.1); CARBON DIOXIDE LEVEL 26 MEQ/L (21-32); CHLORIDE LEVEL 111 MEQ/L (98-107); CREATININE FOR GFR 0.55 MG/DL (0.55-1.30); GLOMERULAR FILTRATION RATE > 60.0 (>51); GLUCOSE, FASTING 88 MG/DL (70-100); POTASSIUM SERUM 4.4 MEQ/L (3.5-5.1); SODIUM LEVEL 142 MEQ/L (136-145); THYROID STIMULATING HORMONE 0.052 uIU/ML (0.358-3.740); TOTAL 25(OH) VITAMIN D 67.9 NG/ML (30.0-100.0)
== END ==
LOC: M LABDRWAD 13:23
PROVIDERS: ATTEND Physician Assistant Medical
DX: E89.0 Postprocedural hypothyroidism (principal); E55.9 Vitamin D deficiency, unspecified; Z79.51 Long term (current) use of inhaled steroids
CPT/HCPCS: 36415; 80048; 82306; 84443; G0463

== ENCOUNTER → 2021-03-02 | Outpatient (CLI) | payer MEDICARE, OTHER | LOC: M PAIN 14:00 | PROVIDERS: ATTEND Anesthesiology | DX: M47.817 Spondylosis without myelopathy or radiculopathy, lumbosacral region (principal); G89.29 Other chronic pain; M79.7 Fibromyalgia; G43.909 Migraine, unspecified, not intractable, without status migrainosus; J45.909 Unspecified asthma, uncomplicated; G47.33 Obstructive sleep apnea (adult) (pediatric); E55.9 Vitamin D deficiency, unspecified; Z86.59 Personal history of other mental and behavioral disorders; Z98.84 Bariatric surgery status; Z87.891 Personal history of nicotine dependence; Z88.0 Allergy status to penicillin; E66.01 Morbid (severe) obesity due to excess calories; Z68.43 Body mass index [BMI] 50.0-59.9, adult; Z79.899 Other long term (current) drug therapy | CPT/HCPCS: G0463 ×2 ==

== ENCOUNTER → 2021-04-28 | Outpatient (CLI) | payer MEDICARE, OTHER | LOC: M LABSMTC 11:41 | PROVIDERS: ATTEND Anesthesiology | DX: Z01.818 Encounter for other preprocedural examination (principal); Z11.52 Encounter for screening for COVID-19 ==

== ENCOUNTER → 2021-08-10 | Outpatient (REF) | payer MEDICARE, OTHER ==
[2021-08-10 12:54] LABS: HEMATOCRIT 39.7 % (36.0-47.0); HEMOGLOBIN 12.5 g/dl (12.0-15.5); MEAN CORPUSCULAR HEMOGLOBIN 25.7 pg (27.0-33.0); MEAN CORPUSCULAR HGB CONC 31.5 g/dl (32.0-36.5); MEAN CORPUSCULAR VOLUME 81.5 fl (80.0-96.0); PLATELET COUNT, AUTOMATED 247 10^3/uL (150-450); RED BLOOD COUNT 4.87 10^6/uL (4.00-5.40)
[2021-08-10 13:15] LABS: HEMOGLOBIN A1c 5.3 %
[2021-08-10 13:18] LABS: ALT/SGPT 24 U/L (12-78); BILIRUBIN,TOTAL 0.3 MG/DL (0.2-1.0); BLOOD UREA NITROGEN 24 MG/DL (7-18); CALCIUM LEVEL 8.3 MG/DL (8.5-10.1); CARBON DIOXIDE LEVEL 25 MEQ/L (21-32); CHLORIDE LEVEL 111 MEQ/L (98-107); CHOLESTEROL LEVEL 250 MG/DL (<200); CHOLESTEROL RISK RATIO 4.032 (<5); CREATININE FOR GFR 0.76 MG/DL (0.55-1.30); FERRITIN 9 NG/ML (8-252); GLOMERULAR FILTRATION RATE > 60.0 (>51); GLUCOSE, FASTING 93 MG/DL (70-100); HDL CHOLESTEROL 62 MG/DL (>40); LDL CHOLESTEROL 150 MG/DL (<100); NON-HDL-C 188 MG/DL; SODIUM LEVEL 142 MEQ/L (136-145); TOTAL PROTEIN 7.4 GM/DL (6.4-8.2); TRIGLYCERIDES LEVEL 190 MG/DL (<150)
[2021-08-10 13:20] LABS: FOLATE 9.9 NG/ML (>5.4); VITAMIN B12 LEVEL 649 PG/ML (247-911)
[2021-08-11 12:08] LABS: THRYOGLOBULIN ANTIBODIES (ATA) < 1.0 IU/mL (0.0-0.9); THYROGLOBULIN QUANTITATIVE 0.7 ng/mL (1.5-38.5)
== END ==
LOC: M SFHCADAM 11:26
PROVIDERS: ATTEND Family Medicine
DX: R73.03 Prediabetes (principal); E55.9 Vitamin D deficiency, unspecified; C73 Malignant neoplasm of thyroid gland; G47.33 Obstructive sleep apnea (adult) (pediatric); Z98.84 Bariatric surgery status; Z79.899 Other long term (current) drug therapy

== ENCOUNTER → 2022-02-14 | Outpatient (REF) | payer MEDICARE, OTHER ==
[2022-02-14 17:09] LABS: HEMATOCRIT 37.7 % (36.0-47.0); HEMOGLOBIN 11.5 g/dl (12.0-15.5); MEAN CORPUSCULAR HEMOGLOBIN 24.5 pg (27.0-33.0); MEAN CORPUSCULAR HGB CONC 30.5 g/dl (32.0-36.5); MEAN CORPUSCULAR VOLUME 80.4 fl (80.0-96.0); PLATELET COUNT, AUTOMATED 260 10^3/uL (150-450); RED BLOOD COUNT 4.69 10^6/uL (4.00-5.40); WHITE BLOOD COUNT 8.3 10^3/uL (4.0-10.0)
[2022-02-14 17:39] LABS: PERCENT SATURATION 11.8 % (13.2-45.0)
[2022-02-14 18:51] LABS: TOTAL 25(OH) VITAMIN D 41.6 NG/ML (30.0-100.0)
[2022-02-14 19:38] LABS: HEMOGLOBIN A1c 5.4 %
== END ==
LOC: M SFHCADAM 14:26
PROVIDERS: ATTEND Family Medicine
DX: F32.9 Major depressive disorder, single episode, unspecified (principal); D50.9 Iron deficiency anemia, unspecified; Z98.84 Bariatric surgery status; E55.9 Vitamin D deficiency, unspecified; R73.03 Prediabetes

== ENCOUNTER → 2022-02-14 | Outpatient (CLI) | payer MEDICARE, OTHER | LOC: M ADAMS 14:53 | PROVIDERS: ATTEND Family Medicine | DX: M79.672 Pain in left foot (principal) ==

== ENCOUNTER → 2022-03-10 | Outpatient (CLI) | payer MEDICARE, OTHER | LOC: M SOG 08:02 | PROVIDERS: ATTEND Orthopaedic Surgery Adult Reconstructive Orthopaedic Surgery | DX: S92.354A Nondisplaced fracture of fifth metatarsal bone, right foot, initial encounter for closed fracture (principal) ==

== ENCOUNTER → 2022-04-06 | Outpatient (CLI) | payer MEDICARE, OTHER | LOC: M SOG 08:28 | PROVIDERS: ATTEND Orthopaedic Surgery Adult Reconstructive Orthopaedic Surgery | DX: S92.354D Nondisplaced fracture of fifth metatarsal bone, right foot, subsequent encounter for fracture with routine healing (principal) ==

== ENCOUNTER → 2022-05-04 | Outpatient (CLI) | payer MEDICARE, OTHER | LOC: M SOG 08:30 | PROVIDERS: ATTEND Orthopaedic Surgery Hand Surgery | DX: S92.354D Nondisplaced fracture of fifth metatarsal bone, right foot, subsequent encounter for fracture with routine healing (principal); Z53.9 Procedure and treatment not carried out, unspecified reason ==

== ENCOUNTER → 2022-05-12 | Outpatient (CLI) | payer MEDICARE, OTHER | LOC: M SOG 08:03 | PROVIDERS: ATTEND Orthopaedic Surgery Adult Reconstructive Orthopaedic Surgery | DX: S92.354D Nondisplaced fracture of fifth metatarsal bone, right foot, subsequent encounter for fracture with routine healing (principal); W18.30XD Fall on same level, unspecified, subsequent encounter ==

== ENCOUNTER → 2022-08-21 | Outpatient (CLI) | payer MEDICARE, OTHER | LOC: M WUC 10:40 | PROVIDERS: ATTEND Physician Assistant Medical | DX: Z53.9 Procedure and treatment not carried out, unspecified reason (principal) ==

== ENCOUNTER → 2023-01-16 | Outpatient (CLI) | payer MEDICARE, OTHER | LOC: M ADAMS 13:42 | PROVIDERS: ATTEND Family Medicine | DX: M43.07 Spondylolysis, lumbosacral region (principal); M53.3 Sacrococcygeal disorders, not elsewhere classified; M46.1 Sacroiliitis, not elsewhere classified ==

== ENCOUNTER → 2023-01-16 | Outpatient (REF) | payer MEDICARE, OTHER ==
[2023-01-16 15:50] LABS: BASO # 0.1 10^3/uL (0.0-0.2); BASO % 0.8 % (0.0-1.0); EOS # 0.3 10^3/uL (0.0-0.5); EOS % 3.4 % (0.0-3.0); HEMATOCRIT 36.2 % (36.0-47.0); HEMOGLOBIN 10.6 g/dl (12.0-15.5); LYMPH % 23.8 % (24.0-44.0); MEAN CORPUSCULAR HEMOGLOBIN 23.6 pg (27.0-33.0); MEAN CORPUSCULAR HGB CONC 29.3 g/dl (32.0-36.5); MEAN CORPUSCULAR VOLUME 80.6 fl (80.0-96.0); MONO # 0.9 10^3/uL (0.0-0.8); NEUTROPHILS % 60.5 % (36.0-66.0); PLATELET COUNT, AUTOMATED 355 10^3/uL (150-450); RED BLOOD COUNT 4.49 10^6/uL (4.00-5.40); WHITE BLOOD COUNT 8.3 10^3/uL (4.0-10.0)
[2023-01-16 16:13] LABS: IRON (FE) 34 UG/DL (50-170); PERCENT SATURATION 8.3 % (13.2-45.0); TOTAL IRON BINDING CAPACITY 409 UG/DL (250-425)
[2023-01-16 16:19] LABS: ALBUMIN 3.6 G/DL (3.2-5.2); ALKALINE PHOSPHATASE 106 U/L (46-116); ALT/SGPT 12 U/L (7.0-40); AST/SGOT 10 U/L (<34); BILIRUBIN,TOTAL 0.2 MG/DL (0.3-1.2); BLOOD UREA NITROGEN 16 MG/DL (9-23); C REACTIVE PROTEIN QUANTITATIV < 0.40 MG/DL (<1.0); CALCIUM LEVEL 8.2 MG/DL (8.3-10.6); CARBON DIOXIDE LEVEL 22 MMOL/L (20-31); CHLORIDE LEVEL 109 MMOL/L (98-107); CHOLESTEROL LEVEL 286 MG/DL (<200); CHOLESTEROL RISK RATIO 5.05 (<5); CREATININE FOR GFR 0.71 MG/DL (0.55-1.30); GLOMERULAR FILTRATION RATE > 60.0 (>45); GLUCOSE, FASTING 81 MG/DL (74-106); HDL CHOLESTEROL 56.6 MG/DL (>40); LDL CHOLESTEROL 173.6 MG/DL (<100); MAGNESIUM LEVEL 1.8 MG/DL (1.8-2.4); NON-HDL-C 229.4 MG/DL; POTASSIUM SERUM 4.7 MMOL/L (3.5-5.1); SODIUM LEVEL 141 MMOL/L (136-145); TOTAL PROTEIN 6.7 G/DL (5.7-8.2); TRIGLYCERIDES LEVEL 279 MG/DL (<150); VITAMIN B12 LEVEL 783 PG/ML (211-911)
[2023-01-16 16:20] LABS: FREE T4 0.61 NG/DL (0.89-1.76)
[2023-01-16 16:21] LABS: FERRITIN 4.4 NG/ML (7.3-270.7)
[2023-01-16 16:22] LABS: THYROID STIMULATING HORMONE 50.665 uIU/ML (0.55-4.78); TOTAL 25(OH) VITAMIN D 19.5 NG/ML (20.0-100.0)
[2023-01-16 16:26] LABS: HEMOGLOBIN A1c 5.3 % (4.0-6.0)
== END ==
LOC: M SFHCADAM 13:30
PROVIDERS: ATTEND Family Medicine
DX: Z98.84 Bariatric surgery status (principal); D50.9 Iron deficiency anemia, unspecified; M46.1 Sacroiliitis, not elsewhere classified; R73.03 Prediabetes; C73 Malignant neoplasm of thyroid gland; Z79.899 Other long term (current) drug therapy

== ENCOUNTER → 2023-01-19 | Outpatient (CLI) | payer MEDICARE | LOC: M PLAIMG 13:33 | PROVIDERS: ATTEND Family Medicine | DX: M43.07 Spondylolysis, lumbosacral region (principal); M53.3 Sacrococcygeal disorders, not elsewhere classified; M46.1 Sacroiliitis, not elsewhere classified ==

== ENCOUNTER → 2023-07-02 | Outpatient (REF) | payer MEDICARE, OTHER ==
[2023-07-02 17:27] LABS: FREE T4 0.89 NG/DL (0.89-1.76); THYROID STIMULATING HORMONE 17.142 uIU/ML (0.55-4.78)
== END ==
LOC: M SFHCADAM 13:13
PROVIDERS: ATTEND Family Medicine
DX: C73 Malignant neoplasm of thyroid gland (principal); E89.0 Postprocedural hypothyroidism

== ENCOUNTER 2024-02-15 15:27 | Emergency (ER) | payer MEDICARE, OTHER ==
[~2024-02-15] VITALS: Ht 162.6 cm; Wt 142.7 kg
[~2024-02-15 15:27] MED LIST changes: -ERGO500029 PO; -FAMO20TA PO; -LEVO200T4 PO; -LEVOTAB10 PO; -MELO15TA28 PO; -OMEP40CA5 PO; -PREG200C2 PO; -SUMA50TA2 PO; -TIZA2TA PO; -VENTAER INH
[2024-02-15] MEDS ORDERED: NS 500 ML IV ONE (16:30)
[2024-02-15] MEDS ORDERED: ISOVUE-370 76% 100ML VIAL As Ordered ONE (16:37)
[2024-02-15 17:37] LABS: INR 1.24; PARTIAL THROMBOPLASTIN TIME 29.6 SECONDS (24.8-34.2); PROTHROMBIN TIME 15.2 SECONDS (12.5-14.5)
[2024-02-15 17:45] LABS: BASO % 0.4 % (0.0-1.0); EOS % 0.3 % (0.0-3.0); LYMPH # 1.5 10^3/uL (1.5-5.0); LYMPH % 13.1 % (24.0-44.0); MEAN CORPUSCULAR HGB CONC 26.4 g/dl (32.0-36.5); MEAN CORPUSCULAR VOLUME 64.6 fl (80.0-96.0); MONO # 1.1 10^3/uL (0.0-0.8); NEUTROPHILS # 8.4 10^3/uL (1.5-8.5); NEUTROPHILS % 75.5 % (36.0-66.0); PLATELET COUNT, AUTOMATED 304 10^3/uL (150-450); RED BLOOD COUNT 3.11 10^6/uL (4.00-5.40); WHITE BLOOD COUNT 11.2 10^3/uL (4.0-10.0)
[2024-02-15 17:46] LABS: HEMATOCRIT 20.1 % (36.0-47.0); HEMOGLOBIN 5.3 g/dl (12.0-15.5)
[2024-02-15 17:52] LABS: LIPASE 17 U/L (12-53)
[2024-02-15 17:53] LABS: AMYLASE 21 U/L (30-118); CPK CREATINE PHOSPHOKINASE 39 U/L (34-145)
[2024-02-15 17:54] LABS: ALBUMIN 3.2 G/DL (3.2-5.2); ALKALINE PHOSPHATASE 110 U/L (46-116); ALT/SGPT < 9 U/L (7.0-40); AST/SGOT 10 U/L (<34); BILIRUBIN,DIRECT 0.1 MG/DL (<0.4); BILIRUBIN,TOTAL 0.3 MG/DL (0.3-1.2); BLOOD UREA NITROGEN 19 MG/DL (9-23); CARBON DIOXIDE LEVEL 21 MMOL/L (20-31); CHLORIDE LEVEL 109 MMOL/L (98-107); CK-MB VALUE MASS < 1.0 NG/ML (<3.6); GLOMERULAR FILTRATION RATE > 60.0 (>45); GLUCOSE, FASTING 109 MG/DL (74-106); MB/CK RELATIVE INDEX 2.56 (< OR =4); POTASSIUM SERUM 3.7 MMOL/L (3.5-5.1); SODIUM LEVEL 139 MMOL/L (136-145); TOTAL PROTEIN 6.3 G/DL (5.7-8.2)
[2024-02-15 17:56] LABS: FREE T4 1.18 NG/DL (0.89-1.76); THYROID STIMULATING HORMONE 3.402 uIU/ML (0.55-4.78)
[2024-02-15] MEDS: PANTOPRAZOLE 40MG VIAL IV ONE ×2 (18:03→22:00)
[2024-02-15] MEDS: MORPHINE 2 MG/ML 1ML VIAL IV PRN (18:03)
[2024-02-15 18:16] LABS: CK-MB VALUE MASS < 1.0 NG/ML (<3.6)
[2024-02-15 18:18] LABS: CPK CREATINE PHOSPHOKINASE 42 U/L (34-145); MB/CK RELATIVE INDEX 2.38 (< OR =4)
[2024-02-15 19:10] VITALS: BP 143/62; TEMP 97.8; O2SAT 99
[2024-02-15 19:57] VITALS: BP 144/88; TEMP 97.8; O2SAT 98
[2024-02-15] MEDS: FUROSEMIDE 20MG/2ML VIAL IV ONE (22:03)
[2024-02-15] MEDS ORDERED: FAMO20TA PO (23:15)
[2024-02-15] MEDS ORDERED: VENTAER INH (23:15)
[2024-02-15] MEDS ORDERED: ERGO500029 PO (23:15)
[2024-02-15] MEDS ORDERED: PREG200C2 PO (23:16)
[2024-02-15] MEDS ORDERED: MELO15TA28 PO (23:16)
[2024-02-15] MEDS ORDERED: OMEP40CA5 PO (23:16)
[2024-02-15] MEDS ORDERED: TIZA2TA PO (23:16)
[2024-02-15] MEDS ORDERED: SUMA50TA2 PO (23:16)
[2024-02-15] MEDS ORDERED: LEVO200T4 PO (23:16)
[2024-02-15] MEDS ORDERED: LEVOTAB10 PO (23:16)
[2024-02-15] MEDS ORDERED: HOME MED LIST COMPLETE! XX SCH (23:20)
[2024-02-16 00:30] VITALS: BP 141/64; TEMP 98.8; O2SAT 100
[2024-02-16 00:45] VITALS: BP 145/65; TEMP 97.9; O2SAT 98
[2024-02-16 02:45] VITALS: BP 128/61; O2SAT 97
== END 2024-02-16 03:16 | disposition left against medical advice (07) ==
LOC: M ED 15:27
DX: K92.2 Gastrointestinal hemorrhage, unspecified (principal); I50.22 Chronic systolic (congestive) heart failure; D64.9 Anemia, unspecified; R06.00 Dyspnea, unspecified; F32.A Depression, unspecified; Z90.89 Acquired absence of other organs; Z98.84 Bariatric surgery status; Z87.891 Personal history of nicotine dependence; Z88.0 Allergy status to penicillin; Z91.048 Other nonmedicinal substance allergy status; Z79.52 Long term (current) use of systemic steroids; Z79.899 Other long term (current) drug therapy; Z53.9 Procedure and treatment not carried out, unspecified reason
CPT/HCPCS: 51702; 71045; 71046; 71275; 74174; 80047; 80048; 80053; 80061; 80076; 82150; 82550; 82553; 82728; 83036; 83550; 83605; 83690; 83880; 84145; 84439; 84443; 84484; 85025; 85027; 85046; 85610; 85730; 86850; 86900; 86901; 86920; 87486; 87581; 87633; 87798; 93005; 93041; 94760; 96374; 96375; 96376; 99285; G0463; J1940; J2470; P9016; Q9967

== ENCOUNTER → 2024-02-15 | Outpatient (CLI) | payer MEDICARE, OTHER ==
[~2024-02-15] MED LIST changes: +BUPR-597; -BUPR300T92; -DULO1CAP6; +DULO1CAP6 PO; +ERGO500029 PO; +FAMO20TA PO; -HYDR-3363; +HYDR-3363 PO; +LEVO200T4 PO; +LEVOTAB10 PO; +MELO15TA28 PO; +OMEP40CA5 PO; -OXYB10TA23; +OXYB10TA23 PO; +PREG200C2 PO; +SUMA50TA2 PO; +TIZA2TA PO; -TOPI100T9; +TOPI100T9 PO; +VENTAER INH
== END ==
LOC: M ADAMS 10:55
PROVIDERS: ATTEND Family Medicine
DX: J22 Unspecified acute lower respiratory infection (principal)

== ENCOUNTER → 2024-02-15 | Outpatient (REF) | payer MEDICARE, OTHER ==
[2024-02-15 12:53] LABS: MEAN CORPUSCULAR HGB CONC 25.9 g/dl (32.0-36.5); MEAN CORPUSCULAR VOLUME 65.6 fl (80.0-96.0); PLATELET COUNT, AUTOMATED 301 10^3/uL (150-450); RED BLOOD COUNT 2.94 10^6/uL (4.00-5.40); WHITE BLOOD COUNT 10.6 10^3/uL (4.0-10.0)
[2024-02-15 12:56] LABS: HEMATOCRIT 19.3 % (36.0-47.0)
[2024-02-15 13:20] LABS: FREE T4 1.15 NG/DL (0.89-1.76); TOTAL IRON BINDING CAPACITY 391 UG/DL (250-425)
[2024-02-15 13:21] LABS: THYROID STIMULATING HORMONE 4.886 uIU/ML (0.55-4.78)
[2024-02-15 13:22] LABS: ALBUMIN 3.2 G/DL (3.2-5.2); ALKALINE PHOSPHATASE 107 U/L (46-116); ALT/SGPT < 9 U/L (7.0-40); AST/SGOT < 8 U/L (<34); BILIRUBIN,TOTAL 0.3 MG/DL (0.3-1.2); BLOOD UREA NITROGEN 17 MG/DL (9-23); CALCIUM LEVEL 8.4 MG/DL (8.3-10.6); CARBON DIOXIDE LEVEL 22 MMOL/L (20-31); CHLORIDE LEVEL 108 MMOL/L (98-107); CHOLESTEROL LEVEL 140 MG/DL (<200); CHOLESTEROL RISK RATIO 4.11 (<5); CREATININE FOR GFR 0.63 MG/DL (0.55-1.30); FERRITIN 2.1 NG/ML (7.3-270.7); GLOMERULAR FILTRATION RATE > 60.0 (>45); GLUCOSE, FASTING 99 MG/DL (74-106); IRON (FE) 10 UG/DL (50-170); LDL CHOLESTEROL 77.6 MG/DL (<100); PERCENT SATURATION 2.6 % (13.2-45.0); POTASSIUM SERUM 3.4 MMOL/L (3.5-5.1); SODIUM LEVEL 138 MMOL/L (136-145); TOTAL PROTEIN 6.3 G/DL (5.7-8.2); TRIGLYCERIDES LEVEL 142 MG/DL (<150)
[2024-02-15 13:25] LABS: PROCALCITONIN 0.07 ng/ml
[2024-02-16 07:27] LABS: Hemoglobin A1c 5.4 (<5.7)
== END ==
LOC: M SFHCADAM 10:49
PROVIDERS: ATTEND Family Medicine
DX: J22 Unspecified acute lower respiratory infection (principal); F32.9 Major depressive disorder, single episode, unspecified; D50.9 Iron deficiency anemia, unspecified; R06.09 Other forms of dyspnea; R73.03 Prediabetes; E89.0 Postprocedural hypothyroidism; C73 Malignant neoplasm of thyroid gland

== ENCOUNTER → 2024-02-27 | Outpatient (REF) | payer MEDICARE, OTHER ==
[~2024-02-27] MED LIST changes: +ERGO500029 PO; +FAMO20TA PO; +LEVO200T4 PO; +LEVOTAB10 PO; +MELO15TA28 PO; +OMEP40CA5 PO; +PREG200C2 PO; +SUMA50TA2 PO; +TIZA2TA PO; +VENTAER INH
[2024-02-27 14:00] LABS: ALBUMIN 3.3 G/DL (3.2-5.2); ALKALINE PHOSPHATASE 105 U/L (46-116); ALT/SGPT < 9 U/L (7.0-40); AST/SGOT < 8 U/L (<34); BASO # 0.1 10^3/uL (0.0-0.2); BILIRUBIN,TOTAL 0.3 MG/DL (0.3-1.2); BLOOD UREA NITROGEN 15 MG/DL (9-23); CALCIUM LEVEL 8.3 MG/DL (8.3-10.6); CARBON DIOXIDE LEVEL 24 MMOL/L (20-31); CHLORIDE LEVEL 111 MMOL/L (98-107); EOS # 0.3 10^3/uL (0.0-0.5); EOS % 3.7 % (0.0-3.0); GLOMERULAR FILTRATION RATE > 60.0 (>45); GLUCOSE, FASTING 91 MG/DL (74-106); HEMATOCRIT 32.9 % (36.0-47.0); HEMOGLOBIN 9.3 g/dl (12.0-15.5); IRON (FE) 109 UG/DL (50-170); LYMPH # 1.7 10^3/uL (1.5-5.0); LYMPH % 24.6 % (24.0-44.0); MEAN CORPUSCULAR HEMOGLOBIN 22.1 pg (27.0-33.0); MEAN CORPUSCULAR HGB CONC 28.3 g/dl (32.0-36.5); MEAN CORPUSCULAR VOLUME 78.1 fl (80.0-96.0); MONO # 0.9 10^3/uL (0.0-0.8); MONO % 13.9 % (2.0-8.0); NEUTROPHILS # 3.8 10^3/uL (1.5-8.5); NEUTROPHILS % 56.4 % (36.0-66.0); PERCENT SATURATION 29.5 % (13.2-45.0); PLATELET COUNT, AUTOMATED 371 10^3/uL (150-450); POTASSIUM SERUM 3.8 MMOL/L (3.5-5.1); RED BLOOD COUNT 4.21 10^6/uL (4.00-5.40); SODIUM LEVEL 142 MMOL/L (136-145); TOTAL IRON BINDING CAPACITY 369 UG/DL (250-425); TOTAL PROTEIN 6.2 G/DL (5.7-8.2); WHITE BLOOD COUNT 6.7 10^3/uL (4.0-10.0)
[2024-02-27 14:04] LABS: FERRITIN 15.6 NG/ML (7.3-270.7)
== END ==
LOC: M SFHCADAM 09:26
PROVIDERS: ATTEND Physician Assistant
DX: D50.0 Iron deficiency anemia secondary to blood loss (chronic) (principal)

== ENCOUNTER → 2024-03-10 | Outpatient (CLI) | payer MEDICARE, OTHER | LOC: M PAIN 08:00 | PROVIDERS: ATTEND Nurse Practitioner Family | DX: M47.816 Spondylosis without myelopathy or radiculopathy, lumbar region (principal); G89.29 Other chronic pain; F32.A Depression, unspecified; F41.9 Anxiety disorder, unspecified; M79.7 Fibromyalgia; G43.909 Migraine, unspecified, not intractable, without status migrainosus; E78.5 Hyperlipidemia, unspecified; J45.909 Unspecified asthma, uncomplicated; G47.33 Obstructive sleep apnea (adult) (pediatric); M17.0 Bilateral primary osteoarthritis of knee; E55.9 Vitamin D deficiency, unspecified; N39.3 Stress incontinence (female) (male); Z87.891 Personal history of nicotine dependence; E66.01 Morbid (severe) obesity due to excess calories; Z68.43 Body mass index [BMI] 50.0-59.9, adult; Z79.890 Hormone replacement therapy; Z85.038 Personal history of other malignant neoplasm of large intestine; Z79.899 Other long term (current) drug therapy; Z88.0 Allergy status to penicillin; Z88.6 Allergy status to analgesic agent ==

== ENCOUNTER → 2024-03-17 | Outpatient (REF) | payer MEDICARE, OTHER ==
[2024-03-17 19:13] LABS: BASO # 0.1 10^3/uL (0.0-0.2); BASO % 0.6 % (0.0-1.0); EOS # 0.2 10^3/uL (0.0-0.5); EOS % 1.8 % (0.0-3.0); HEMOGLOBIN 10.9 g/dl (12.0-15.5); LYMPH # 1.8 10^3/uL (1.5-5.0); LYMPH % 14.8 % (24.0-44.0); MEAN CORPUSCULAR HEMOGLOBIN 22.6 pg (27.0-33.0); MEAN CORPUSCULAR HGB CONC 29.5 g/dl (32.0-36.5); MEAN CORPUSCULAR VOLUME 76.8 fl (80.0-96.0); MONO # 1.1 10^3/uL (0.0-0.8); MONO % 9.2 % (2.0-8.0); NEUTROPHILS # 8.8 10^3/uL (1.5-8.5); NEUTROPHILS % 72.9 % (36.0-66.0); PLATELET COUNT, AUTOMATED 244 10^3/uL (150-450); RED BLOOD COUNT 4.82 10^6/uL (4.00-5.40); WHITE BLOOD COUNT 12.1 10^3/uL (4.0-10.0)
[2024-03-17 19:49] LABS: FERRITIN 9.3 NG/ML (7.3-270.7)
[2024-03-17 20:28] LABS: PLATELET ESTIMATE NORMAL (NORMAL)
[2024-03-17 20:29] LABS: ANISOCYTOSIS 2+; MICROCYTOSIS 1+; OVALOCYTES 1+
[2024-03-17 20:30] LABS: HYPOCHROMASIA 1+
== END ==
LOC: M SFHCADAM 13:27
PROVIDERS: ATTEND Physician Assistant
DX: K92.2 Gastrointestinal hemorrhage, unspecified (principal)

== ENCOUNTER → 2024-06-24 | Outpatient (REF) | payer MEDICARE, OTHER ==
[2024-06-24 17:43] LABS: IRON (FE) 32 UG/DL (50-170); PERCENT SATURATION 7.5 % (13.2-45.0); TOTAL IRON BINDING CAPACITY 426 UG/DL (250-425)
[2024-06-24 17:44] LABS: ALBUMIN 3.7 G/DL (3.2-5.2); ALKALINE PHOSPHATASE 125 U/L (35-104); ALT/SGPT 14 U/L (7.0-40); AST/SGOT 13 U/L (<34); BILIRUBIN,TOTAL 0.3 MG/DL (0.3-1.2); BLOOD UREA NITROGEN 19 MG/DL (9-23); CALCIUM LEVEL 8.9 MG/DL (8.3-10.6); CARBON DIOXIDE LEVEL 23 MMOL/L (20-31); CHLORIDE LEVEL 110 MMOL/L (98-107); CHOLESTEROL LEVEL 274 MG/DL (<200); CREATININE FOR GFR 0.73 MG/DL (0.55-1.30); GLOMERULAR FILTRATION RATE > 60.0 (>45); GLUCOSE, FASTING 103 MG/DL (74-106); HDL CHOLESTEROL 53.7 MG/DL (>40); LDL CHOLESTEROL 170.1 MG/DL (<100); NON-HDL-C 220.3 MG/DL; POTASSIUM SERUM 4.4 MMOL/L (3.5-5.1); SODIUM LEVEL 140 MMOL/L (136-145); TOTAL PROTEIN 7.1 G/DL (5.7-8.2); TRIGLYCERIDES LEVEL 251 MG/DL (<150)
[2024-06-24 17:47] LABS: HEMATOCRIT 36.9 % (36.0-47.0); HEMOGLOBIN 11.1 g/dl (12.0-15.5); MEAN CORPUSCULAR HEMOGLOBIN 22.8 pg (27.0-33.0); MEAN CORPUSCULAR HGB CONC 30.1 g/dl (32.0-36.5); MEAN CORPUSCULAR VOLUME 75.8 fl (80.0-96.0); PLATELET COUNT, AUTOMATED 375 10^3/uL (150-450); RED BLOOD COUNT 4.87 10^6/uL (4.00-5.40); WHITE BLOOD COUNT 11.3 10^3/uL (4.0-10.0)
[2024-06-24 17:51] LABS: FERRITIN 5.9 NG/ML (7.3-270.7); THYROID STIMULATING HORMONE 36.222 uIU/ML (0.55-4.78)
[2024-06-24 17:52] LABS: TOTAL 25(OH) VITAMIN D 40.2 NG/ML (20.0-100.0); VITAMIN B12 LEVEL 632 PG/ML (211-911)
[2024-06-24 19:00] LABS: HEMOGLOBIN A1c 5.3 % (4.0-6.0)
== END ==
LOC: M SFHCADAM 14:15
PROVIDERS: ATTEND Family Medicine
DX: D50.9 Iron deficiency anemia, unspecified (principal); E89.0 Postprocedural hypothyroidism; R73.03 Prediabetes; Z98.84 Bariatric surgery status; Z79.899 Other long term (current) drug therapy

== ENCOUNTER → 2024-06-30 | Outpatient (CLI) | payer MEDICARE, OTHER | LOC: M WHC 13:11 | PROVIDERS: ATTEND Family Medicine | DX: Z12.31 Encounter for screening mammogram for malignant neoplasm of breast (principal) ==

== ENCOUNTER 2024-07-30 13:09 | Outpatient (CLI) | payer MEDICARE, OTHER ==
[~2024-07-30] VITALS: Ht 162.6 cm; Wt 142.0 kg
[~2024-07-30 13:09] MED LIST changes: +ALBUTEROL SULFATE 2.5MG/0.5ML INH NEB SOLN INH PRN; +EPINEPHrine INJ 1 MG/ML 1ML AMP IM PRN; +NS (Normal Saline) 0.9% 1,000 ML IV SCH; +diphenhydrAMINE 50MG/ML VIAL IV PRN; +methylPREDNISolone 125MG 2ML VIAL IV PRN
[2024-07-30 13:25] VITALS: BP 142/82; O2SAT 95
[2024-07-30] MEDS: methylPREDNISolone 40MG 1ML VIAL IV ONE (14:19)
[2024-07-30] MEDS: diphenhydrAMINE 25MG CAP PO ONE (14:19)
[2024-07-30] MEDS: ACETAMINOPHEN 650 MG PO ONE (14:19)
[2024-07-30] MEDS: IRON SUCROSE 275 MG in NS 250 ML IV ONE (14:33)
[2024-07-30 15:35] VITALS: BP 142/86; O2SAT 95
[2024-07-30] MEDS: IRON SUCROSE 25 MG in NS 23.75 ML IV ONE (16:07)
[2024-07-30 16:35] VITALS: BP 138/78; O2SAT 95
== END 2024-07-30 16:40 | disposition home or self-care (01) ==
LOC: M INFU 13:09
PROVIDERS: ATTEND Family Medicine
DX: D50.9 Iron deficiency anemia, unspecified (principal); Z88.0 Allergy status to penicillin; Z91.048 Other nonmedicinal substance allergy status
CPT/HCPCS: 96365; 96366; 96375; J1756; J2919

== ENCOUNTER 2024-08-13 14:40 | Outpatient (CLI) | payer MEDICARE, OTHER ==
[~2024-08-13] VITALS: Ht 162.6 cm; Wt 140.0 kg
[~2024-08-13 14:40] MED LIST changes: -NS (Normal Saline) 0.9% 1,000 ML IV SCH
[2024-08-13] MEDS: diphenhydrAMINE 25MG PO PRIOR TO INFUSION PO ONE (14:46)
[2024-08-13] MEDS: ACETAMINOPHEN 650MG PO PRIOR TO INFUSION PO ONE (14:46)
[2024-08-13] MEDS: methylPREDNISolone 125MG 2ML VIAL IV ONE (14:47)
[2024-08-13 14:50] VITALS: BP 131/60; O2SAT 95
[2024-08-13] MEDS: IRON SUCROSE 300 MG in NS 250 ML OVER 90 MIN. IV ONE (14:56)
[2024-08-13 16:45] VITALS: BP 117/62; O2SAT 96
== END 2024-08-13 16:45 ==
LOC: M INFU 14:40
PROVIDERS: ATTEND Family Medicine
DX: D50.9 Iron deficiency anemia, unspecified (principal); Z88.0 Allergy status to penicillin; Z91.048 Other nonmedicinal substance allergy status
CPT/HCPCS: 96365; 96366; 96375; J1756; J2919

== ENCOUNTER 2024-09-03 10:25 | Outpatient (CLI) | payer MEDICARE, OTHER ==
[2024-09-01] MEDS: methylPREDNISolone 40MG 1ML VIAL IV ONE (13:30)
[2024-09-01] MEDS: diphenhydrAMINE 25MG CAP PO ONE (13:30)
[~2024-09-03] VITALS: Ht 162.6 cm; Wt 143.2 kg
[2024-09-03 10:15] VITALS: BP 131/58; O2SAT 99
[~2024-09-03 10:25] MED LIST changes: +ALBUTEROL SULFATE 2.5MG/0.5ML INH CONCENTRATE NEB SOLN INH PRN; -ALBUTEROL SULFATE 2.5MG/0.5ML INH NEB SOLN INH PRN; +IRON SUCROSE 300 MG in NS 250 ML OVER 90 MIN. IV ONE
[2024-09-03] MEDS ORDERED: ACETAMINOPHEN 325 MG TAB PO ONE (10:30)
[2024-09-03] MEDS: ACETAMINOPHEN 650 MG PO ONE (10:33)
[2024-09-03] MEDS: IRON SUCROSE 300 MG in NS 250 ML IV ONE (10:34)
[2024-09-03] MEDS: diphenhydrAMINE 25MG PO PRIOR TO INFUSION PO ONE (10:36)
[2024-09-03] MEDS: methylPREDNISolone 40MG 1ML VIAL IV ONE (10:39)
[2024-09-03 12:00] VITALS: BP 129/50; O2SAT 100
== END 2024-09-03 12:20 ==
LOC: M INFU 10:25
PROVIDERS: ATTEND Family Medicine
DX: D50.9 Iron deficiency anemia, unspecified (principal); Z88.0 Allergy status to penicillin; Z91.048 Other nonmedicinal substance allergy status
CPT/HCPCS: 96365; 96375; J1756; J2919

== ENCOUNTER → 2024-11-26 | Outpatient (REF) | payer MEDICARE, OTHER ==
[~2024-11-26] MED LIST changes: -ALBUTEROL SULFATE 2.5MG/0.5ML INH CONCENTRATE NEB SOLN INH PRN; -BUPR-597; +BUPR-766; -EPINEPHrine INJ 1 MG/ML 1ML AMP IM PRN; -IRON SUCROSE 300 MG in NS 250 ML OVER 90 MIN. IV ONE; +TOPI-257 PO; -TOPI100T9 PO; -diphenhydrAMINE 50MG/ML VIAL IV PRN; -methylPREDNISolone 125MG 2ML VIAL IV PRN
[2024-11-26 14:12] LABS: PLATELET COUNT, AUTOMATED 250 10^3/uL (150-450)
[2024-11-26 14:39] LABS: ALT/SGPT 12.0 U/L (7.0-40); AST/SGOT 15.0 U/L (<34); CALCIUM LEVEL 8.0 MG/DL (8.3-10.6); CARBON DIOXIDE LEVEL 25.0 MMOL/L (20-31); CHLORIDE LEVEL 105.0 MMOL/L (98-107); CREATININE FOR GFR 0.84 MG/DL (0.55-1.30); GLOMERULAR FILTRATION RATE 78.5 (>45); IRON (FE) 40.0 UG/DL (50-170); PERCENT SATURATION 11.4 % (13.2-45.0); POTASSIUM SERUM 4.0 MMOL/L (3.5-5.1); SODIUM LEVEL 142.0 MMOL/L (136-145)
[2024-11-26 14:43] LABS: FREE T4 0.44 NG/DL (0.89-1.76)
== END ==
LOC: M SFHCADAM 08:42
PROVIDERS: ATTEND Family Medicine
DX: D50.0 Iron deficiency anemia secondary to blood loss (chronic) (principal); E89.0 Postprocedural hypothyroidism; C73 Malignant neoplasm of thyroid gland

== ENCOUNTER → 2025-02-12 | Outpatient (REF) | payer MEDICARE, OTHER ==
[2025-02-12 14:09] LABS: BASO # 0.1 10^3/uL (0.0-0.2); BASO % 0.8 % (0.0-1.0); EOS # 0.2 10^3/uL (0.0-0.5); EOS % 2.9 % (0.0-3.0); LYMPH # 2.2 10^3/uL (1.5-5.0); LYMPH % 35.8 % (24.0-44.0); MONO # 0.7 10^3/uL (0.0-0.8); MONO % 11.5 % (2.0-8.0); NEUTROPHILS # 3.0 10^3/uL (1.5-8.5); NEUTROPHILS % 48.7 % (36.0-66.0); PLATELET COUNT, AUTOMATED 232 10^3/uL (150-450)
[2025-02-12 14:13] LABS: ALT/SGPT 14.0 U/L (7.0-40); AST/SGOT 16.0 U/L (<34); CALCIUM LEVEL 8.2 MG/DL (8.3-10.6); CARBON DIOXIDE LEVEL 24.0 MMOL/L (20-31); CHLORIDE LEVEL 109.0 MMOL/L (98-107); CHOLESTEROL LEVEL 181.0 MG/DL (<200); CHOLESTEROL RISK RATIO 3.79 (<5); CREATININE FOR GFR 0.82 MG/DL (0.55-1.30); GLOMERULAR FILTRATION RATE 80.8 (>45); LDL CHOLESTEROL 103.1 MG/DL (<100); NON-HDL-C 133.3 MG/DL; POTASSIUM SERUM 4.3 MMOL/L (3.5-5.1); SODIUM LEVEL 140.0 MMOL/L (136-145); TRIGLYCERIDES LEVEL 151.0 MG/DL (<150)
[2025-02-12 14:14] LABS: FREE T4 2.11 NG/DL (0.89-1.76)
[2025-02-12 15:08] LABS: ESTIMATED AVERAGE GLUCOSE 103.0 MG/DL (60-110)
== END ==
LOC: M SFHCADAM 09:14
PROVIDERS: ATTEND Family Medicine
DX: E89.0 Postprocedural hypothyroidism (principal); E66.01 Morbid (severe) obesity due to excess calories; G47.33 Obstructive sleep apnea (adult) (pediatric); Z98.84 Bariatric surgery status; C73 Malignant neoplasm of thyroid gland; F32.9 Major depressive disorder, single episode, unspecified; Z87.19 Personal history of other diseases of the digestive system; D50.9 Iron deficiency anemia, unspecified